=== PATIENT | male | born 1990 | race Caucasian/White ===

== ENCOUNTER 2020-02-15 04:50 | Emergency (ER) | payer OTHER, SELFPAY ==
[2020-02-15 05:12] VITALS: BP 119/74; PULSE 67; RESP 16; TEMP 36.9; O2SAT 97; BMI 33.9
--- NOTE | 2020-02-15 05:51 | ED_ITS ---
HPI - Back Pain/Injury General Chief Complaint: Back Pain/Injury Stated Complaint: BACK PAIN Time Seen by Provider: 02/15/20 05:51 Source: patient Mode of arrival: ambulatory Limitations: no limitations History of Present Illness HPI Narrative: This is a 30-year-old male who presents with acute on chronic lower back discomfort with some very mild radiation into the gluteal muscle without any associated urinary or fecal incontinence. This patient denies any fever, chills, nausea, vomiting, diarrhea, or urinary pain/ burning/ frequency. Related Data Previous Rx's Medication Instructions Recorded ketorolac 10 mg PO Q6H PRN 5 Days #20 tab 02/15/20 Allergies Allergy/AdvReac Type Severity Reaction Status Date / Time No Known Allergies Allergy Verified 02/15/20 05:17 Review of Systems Review of Systems: Pertinent positives and negatives as stated in HPI 10 point review of systems otherwise negative. PMFSH Past Medical History Source: nursing notes reviewed Medical History High cholesterol No known health problems Social History Social History Smoking Status: Never smoker Use of substances other than those prescribed or required for medical reasons: No Advance Directives: No Advance Directives Information Provided: No Physical Exam Vital Signs: Vital Signs: Last Vital Signs Temp 98.5 F 02/15/20 05:12 Pulse 67 02/15/20 05:12 Resp 16 02/15/20 05:12 BP 119/74 02/15/20 05:12 Pulse Ox 97 02/15/20 05:12 Body Mass Index 33.9 VITAL SIGNS: Reviewed. GENERAL: Well developed, well nourished, in no acute distress. HEAD: Normocephalic/atraumatic, EYES: PERRLA, EOMI intact without pain, no nystagmus/pallor/icterus noted EARS: Ext canals without abnormality, TMs non-bulging and non-erythematous NOSE: Nares patent bilateral OROPHARYNX: no oral lesions noted, posterior pharynx clear and non-erythematous without noted tonsillar enlargement/erythema/exudates NECK: Supple, no adenopathy LUNGS: Normal breath sounds. No adventitious sounds or accessory muscle use. SpO2<97> CARDIOVASCULAR: Regular rate and rhythm without noted murmurs, no JVD or lower extremity edema. ABDOMEN: Soft, non-tender, non-distended with bowel sounds. No rigidity. No guarding. No palpable masses or hernias noted MUSCULOSKELETAL: No tenderness, deformities, or effusions noted on gross inspection. EXTREMITIES: No cyanosis, clubbing or edema. SKIN: Inspection of the skin reveals no rashes, ulcerations, jaundice, pallor, or petechiae. NEUROLOGIC: Alert and oriented x 4. Strength and sensation to light touch were grossly intact x 4. Course Course Course Narrative: This is a 30-year-old male with history and clinical examin ation consistent with chronic back pain and will receive combination analgesics and discharged to home in stable condition. Discharge Plan Discharge Clinical Impression: Back pain with left-sided sciatica Patient Disposition: Home, Self-Care Instructions: Back Pain (ED), Lower Back Exercises (ED) Additional Instructions: 1. Tylenol 1000 mg, orally, every 6 hours as needed for pain control. Do not exceed 4000 mg within 24 hours. 2. Lidocaine patch, apply to area of maximal pain as directed on the outside packaging. These are available in every [facility]. The patient and/or family acknowledge understanding of results (as applicable), diagnosis, treatment plan, need for follow up, and symptoms that should prompt a return to the emergency room. Prescriptions: New ketorolac 10 mg tablet 10 mg PO Q6H PRN (Reason: pain) 5 Days Qty: 20 RF: 0 Referrals: Natalya Dodd MD [Primary Care Provider] - 2 days ( For further re- evaluation regarding back pain)
[2020-02-15] MEDS: Acetaminophen 325 MG TABLET 975 MG PO (06:04)
[2020-02-15] MEDS: Lidocaine 4 % Patch ADH..PATCH 1 PATCH TRANSDERMA (06:05)
[2020-02-15] MEDS: Ketorolac Tromethamine 15 MG/ML VIAL IM (06:07)
== END 2020-02-15 06:12 | disposition home or self-care (01) ==
PROVIDERS: Emergency Provider Student in an Organized Health Care Education/Training Program; PCP Internal Medicine
DX: M54.42 Lumbago with sciatica, left side (principal); Z79.899 Other long term (current) drug therapy
CPT/HCPCS: 96372; 99284; J1885

== ENCOUNTER 2020-02-24 12:47 | Outpatient (REF) | payer OTHER, SELFPAY ==
[2020-02-24 13:13] LABS: MANUAL DIFF FLAG NO
[2020-02-24 13:37] LABS: Basophils Absolute Auto 0.1 X10*3/uL (0.0-0.2); Basophils Percent Auto 0.5 % (0-2); Eosinophils Absolute Auto 0.1 X10*3/uL (0.0-0.4); Hematocrit 38.7 % (42-52); Hemoglobin 13.1 g/dl (14.0-18.0); Imm Gran Abs Auto 0.06 X10*3/uL (0.00-0.03); Imm Gran Pct Auto 0.6 % (0.0-0.4); Lymphocytes Absolute Auto 2.6 X10*3/uL (1.2-4.9); Lymphocytes Percent Auto 26.3 % (20-40); Mean Corpuscular HGB Conc 33.9 g/dl (31.0-36.0); Mean Corpuscular Hemoglobin 29.9 pg (27.0-33.0); Mean Corpuscular Volume 88.4 fL (80-98); Mean Platelet Volume 11.9 fL (9.4-12.4); Monocytes Absolute Auto 0.6 X10*3/uL (0.1-1.2); Monocytes Percent Auto 6.3 % (2-11); Neutrophils Absolute Auto 6.5 X10*3/uL (2.0-8.3); Neutrophils Percent Auto 65.3 % (45-73); Platelet Count 222 X10*3/uL (160-400); Red Blood Count 4.38 X10*6/uL (4.60-5.80); Red Cell Distribution Width 12.4 % (11.0-16.0)
[2020-02-24 13:55] LABS: Alanine Aminotransferase 37 U/L (0-40); Albumin Level 4.7 g/dL (3.5-5.0); Alkaline Phosphatase 100 U/L (39-117); Anion Gap 12 (12-20); Aspartate Amino Transferase 25 U/L (5-37); Bilirubin Total 0.4 mg/dL (0.0-1.0); Blood Urea Nitrogen 13 mg/dL (9-16); Calcium 9.4 mg/dL (8.4-10.2); Carbon Dioxide 30 mmol/L (22-29); Chloride 103 mmol/L (96-108); Cholesterol 225 mg/dL; Estimated Glomerular Filt Rate > 60; Glucose Fasting 82 mg/dL (60-99); HDL Cholesterol 61 mg/dL; LDL Cholesterol Calculated 153 mg/dl; Sodium 141 mmol/L (135-145); Total Protein 7.6 g/dL (6.5-8.0); Triglycerides 56 mg/dL
[2020-02-24 14:15] LABS: TSH reflex Free T4 2.22 mIU/mL (0.32-4.0)
[2020-02-28 13:37] LABS: Vitamin D 25-OH, D2 <4 ng/mL; Vitamin D 25-OH, D3 19 ng/mL; Vitamin D 25-OH, Total 19 ng/mL (30-100)
== END 2020-02-24 12:48 | disposition home or self-care (01) ==
LOC: HO.LAB 12:47
PROVIDERS: Visit Provider Internal Medicine
DX: E78.5 Hyperlipidemia, unspecified (principal); E11.9 Type 2 diabetes mellitus without complications; E03.9 Hypothyroidism, unspecified; R07.9 Chest pain, unspecified; E55.9 Vitamin D deficiency, unspecified
CPT/HCPCS: 36415; 80053; 80061; 82306; 84443; 85025

== ENCOUNTER 2020-03-04 10:54 | Emergency (ER) | payer OTHER, SELFPAY ==
[2020-03-04 11:26] VITALS: BP 143/80; PULSE 74; RESP 18; TEMP 36.7; O2SAT 100; BMI 74.7
--- NOTE | 2020-03-04 12:08 | ED_ITS ---
HPI - Back Pain/Injury General Chief Complaint: Back Pain/Injury Stated Complaint: back pain Time Seen by Provider: 03/04/20 12:07 Source: patient Mode of arrival: ambulatory Limitations: no limitations History of Present Illness HPI Narrative: Right lower back pain since Thursday. Patient tells me he was shoveling snow on and woke Thursday morning with pain. He has a past history of sciatica with her recent episode on02/14. Seen here 02 14 for sciatica. Sent home with p.o. Toradol. Patient does have the pain radiates down his right leg. There is no numbness or tingling. There is no saddle anesthesia. No bowel or bladder incontinence. The patient is ambulatory. No fevers or chills. He is taking Toradol at home with continued symptoms MD elicited complaint: back pain Pertinent past history: prior back pain Onset (ago): day(s) Timing: constant Severity: moderate Quality: aching and spasming Location: lumbar spine Radiation: none Exacerbating factors: none Relieving factors: none Associated symptoms: denies other symptoms Related Data Previous Rx's Medication Instructions Recorded ketorolac 10 mg PO Q6H PRN 5 Days #20 tab 02/15/20 cyclobenzaprine 10 mg PO TID PRN #10 tab 03/04/20 ibuprofen 800 mg PO Q6H PRN #20 tab 03/04/20 prednisone 40 mg PO DAILY #10 tab 03/04/20 Allergies Allergy/AdvReac Type Severity Reaction Status Date / Time No Known Allergies Allergy Verified 02/23/20 08:43 Review of Systems Review of Systems: Yes all other systems are reviewed and are negative Constitutional: Constitutional: Reports no additional constitutional complaints, Denies body ache(s), Denies chills, Denies fever(s), Denies headache(s) and Denies weakness Eyes: Eyes: Reports no additional eye complaints and Denies change in vision ENT: Reports system reviewed and no additional complaints, except as documented, Denies dizziness, Denies headache(s), Denies nasal congestion, Denies nasal discharge and Denies neck pain Cardiovascular: Cardiovascular: Reports no additional cardiovascular complaints, Denies chest pain, Denies leg edema and Denies dyspnea Respiratory: Respiratory: Reports no additional respiratory complaints, Denies cough and Denies dyspnea Gastrointestinal: Gastrointestinal: Reports no additional gastrointestinal complaints, Denies abdominal pain, Denies diarrhea, Denies nausea and Denies vomiting Genitourinary: Genitourinary: Denies urinary incontinence Musculoskeletal: Musculoskeletal: Reports no additional musculoskeletal complaints, Reports back pain, Denies arthralgias, Denies joint swelling, Denies neck pain, Denies numbness and Denies tingling Integumentary/Breasts: Skin/Breast: Reports system reviewed and no additional complaints, except as docu and Denies rash Neurologic: Reports system reviewed and no additional complaints, except as documented, Denies Abnormal speech present, Denies dizziness, Denies headache(s), Denies numbness, Denies tingling and Denies weakness PMFSH Past Medical History Attestation statement: The following information was validated with the patient. Source: old records reviewed and nursing notes reviewed Medical History Abdominal pain Chest pain Dyslipidemia Hypovitaminosis D Left sided sciatica No known health problems Surgical History History of hand surgery Family History Family History Father No problems noted. Maternal Uncle Throat cancer Mother Diabetes Hypertension Maternal Grandfather Diabetes Paternal Grandfather No problems noted. Social History Social History Alcohol intake: current Alcohol intake frequency: a few times a month Smoking Status: Never smoker Advance Directives: No Advance Directives Information Provided: Yes Physical Exam Vital Signs: Vital Signs: Last Vital Signs Temp 98.0 F 03/04/20 11:26 Pulse 74 03/04/20 11:26 Resp 18 03/04/20 11:26 BP 143/80 H 03/04/20 11:26 Pulse Ox 100 03/04/20 11:26 Body Mass Index 74.7 Const: General: cooperative, healthy appearing, comfortable and no acute distress Orientation/consciousness: patient oriented x3 Limitations: no limitations HENMT: Head: Yes normal to inspection Ears: hearing grossly normal bilaterally General nose exam: Normal external nose present Face and sinus: Yes normal facial exam Mouth: Normal oral and palatal mucosa present Throat: Yes posterior oropharynx normal Eyes: General: appearance normal, both eyes and all related structures Pupils: Equal, round and reactive pupils present Neck: Neck: Yes normal visual inspection Chest: Chest palpation & inspection: normal inspection of the chest Resp: Effort & Inspection: normal respiratory effort Auscultation: clear to auscultation bilaterally Cardio: Rate: regular rate Rhythm: regular rhythm Peripheral pulses: Peripheral pulses 2+ throughout GI: Inspection: Yes normal to inspection Palpation (GI): Soft to palpation and nontender Auscultation: normal bowel sounds Back/Spine/Pelvis: Other: Right lumbar soft tissue tenderness lower into the right buttocks. There is no midline tenderness, step-offs or deformities. Pain is worsened with straight leg raise on the right side. Thoracic/Lumbar Spine: thoracic and lumbar spine normal to inspection Skin: General skin exam: no rashes or lesions noted Neuro: General: patient oriented x3, no focal motor deficits and normal sensation to monofilament Cranial nerves: Yes Equal, round and reactive pupils present Cognition (Neuro): normal cognition Speech: No Abnormal speech present Gait exam (Neuro): Normal gait present Motor exam (neuro): 5/5 motor strength present throughout Sensory Exam: Normal double simultaneous stimulation for sensation Deep tendon reflexes (DTR's): Right patellar reflex intensity grade: 2+, Left patellar reflex intensity grade: 2+, Right ankle reflex intensity grade: 2+ and Left ankle reflex intensity grade: 2+ Coordination: tandem gait normal Extrem: General: Yes normal to inspection Course Course Course Narrative: Exam consistent with sciatica. No red flag symptoms or neur ological deficits. Discussed with patient supportive care at home. Reviewed worrisome signs and symptoms of when to return to the emergency department. Comfortable discharge home. MDM - Back Pain/Injury Medical Records Attestation: I reviewed the patient's medical records. Lab Data Attestation: I reviewed the patient's lab results. Discharge Plan Discharge Clinical Impression: Sciatica Qualifiers: Laterality: right Qualified Code(s): M54.31 - Sciatica, right side Patient Disposition: Home, Self-Care Instructions: Sciatica (ED) Additional Instructions: NO heavy lifting or bending Heat or ice to the area Prescriptions: New ibuprofen 800 mg tablet 800 mg PO Q6H PRN (Reason: pain) Qty: 20 RF: 0 cyclobenzaprine 10 mg tablet 10 mg PO TID PRN (Reason: muscle spasm) Qty: 10 RF: 0 prednisone 20 mg tablet 40 mg PO DAILY Qty: 10 RF: 0 No Action ketorolac 10 mg tablet 10 mg PO Q6H PRN (Reason: pain) 5 Days Qty: 20 RF: 0 Referrals: Natalya Dodd MD [Primary Care Provider] - 2 days Stand Alone Forms: Work/School Release Interventions: ED Discharge Assessment Last Done: 03/04/20 12:32 Discharge Date/Time: 03/04/20 12:33
== END 2020-03-04 12:33 | disposition home or self-care (01) ==
PROVIDERS: Emergency Provider Emergency Medicine; PCP Internal Medicine
DX: M54.41 Lumbago with sciatica, right side (principal)
CPT/HCPCS: 99283

== ENCOUNTER 2020-03-20 07:53 | Outpatient (REF) | payer OTHER, SELFPAY ==
--- NOTE | 2020-03-20 08:00 | US_ITS ---
EXAMINATION: US ABDOMEN LIMITED CLINICAL INFORMATION: Periumbilical pain. COMPARISON: KUB dated 08/24/2019. TECHNIQUE: Real-time imaging of the umbilical area. FINDINGS: No hernia is seen. No mass or fluid collection is seen. US/US abdomen limited IMPRESSION: No hernia seen by ultrasound.
== END 2020-03-20 07:54 | disposition home or self-care (01) ==
LOC: HO.US 07:53
PROVIDERS: PCP Internal Medicine; Visit Provider Internal Medicine
DX: R10.33 Periumbilical pain (principal)
CPT/HCPCS: 76705

== ENCOUNTER 2020-04-04 13:00 | Outpatient (RCR) | payer OTHER, SELFPAY ==
--- NOTE | 2020-03-22 14:21 | MHC.PT.EP ---
[facility] [place] Office [place] Office [place] Office [address] [phone] F: [phone] F: [phone] F: [phone] F: [phone] Physical Therapy Plan of Care Date of Evaluation: 03/22/20 Date of Surgery: Diagnosis: low back pain Assessment: The patient exhibited painful lumbar mobility in all directions most notable with bending. He lacks awareness of neutral spine exhibiting increased lumbar lordosis. He was able to find neutral spine with significant tactile cues.He has significant core weakness noted. His job requires repetitive lifting in multiple directions. He will benefit from extensive body mechanics training to help prevent future occurrence. He will also need core stabilization activities to help prevent strain to his lumbar spine. Frequency and Duration: The patient will be seen 2x/week x 4 weeks Short Term Goals: 1. Pt to be able to find neutral spine independently Mcfp Goals: 1. Pt to be able to resume normal daily activities without pain. 2. Pt to be able to do all functional lifting such as squatting, and bending without pain 3. Pt to resume normal sleeping postures without pain Treatment Plan: Modalities to reduce pain, spasms and effusion. Manual therapy to restore motion and function. Therapeutic exercise to improve strength and flexibility. Neuromuscular re-education for posture and balance. Therapeutic activities to return to functional activities of daily living. Electronically signed by: Eli Macdonald PT DPT Please sign and return to therapist. Thank you for your referral.
== END 2020-04-15 08:00 | disposition home or self-care (01) ==
LOC: HO.PT 13:00
PROVIDERS: PCP Internal Medicine; Visit Provider Internal Medicine
DX: M54.31 Sciatica, right side (principal)
CPT/HCPCS: 97110; 97112; 97162

== ENCOUNTER 2020-08-08 09:36 | Outpatient (REF) | payer OTHER, SELFPAY ==
--- NOTE | 2020-08-08 09:30 | EMG_ITS ---
This is a 30-year-old man, who had an injury with a box on his left hand about 4 months ago. Complains of pain and numbness in the left upper extremity. His neurological examination is normal. IMPRESSION: Rule out nerve entrapment, rule out carpal tunnel syndrome. EMG nerve conduction study: Normal electrodiagnostic study of the left upper extremity with no evidence of carpal tunnel syndrome or nerve entrapment. Normal EMG of the left C7-T1 innervated muscles. MD JESUS Fernandez/RIRI / [id number]
== END 2020-08-08 09:37 | disposition home or self-care (01) ==
LOC: HO.NEURO 09:36
PROVIDERS: Visit Provider Internal Medicine
DX: R20.0 Anesthesia of skin (principal)
CPT/HCPCS: 95885; 95910

== ENCOUNTER 2020-12-24 10:34 | Outpatient (REF) | payer OTHER, SELFPAY ==
[2020-12-24 10:50] LABS: MANUAL DIFF FLAG NO
[2020-12-24 11:07] LABS: Basophils Percent Auto 0.5 % (0-2); Eosinophils Absolute Auto 0.1 X10*3/uL (0.0-0.4); Eosinophils Percent Auto 1.5 % (0-4); Hematocrit 41.1 % (42-52); Hemoglobin 13.7 g/dl (14.0-18.0); Imm Gran Abs Auto 0.02 X10*3/uL (0.00-0.03); Imm Gran Pct Auto 0.3 % (0.0-0.4); Lymphocytes Percent Auto 30.2 % (20-40); Mean Corpuscular HGB Conc 33.3 g/dl (31.0-36.0); Mean Corpuscular Hemoglobin 29.4 pg (27.0-33.0); Mean Corpuscular Volume 88.2 fL (80-98); Mean Platelet Volume 11.4 fL (9.4-12.4); Monocytes Absolute Auto 0.4 X10*3/uL (0.1-1.2); Monocytes Percent Auto 6.4 % (2-11); Neutrophils Percent Auto 61.1 % (45-73); Platelet Count 219 X10*3/uL (160-400); Red Blood Count 4.66 X10*6/uL (4.60-5.80); Red Cell Distribution Width 12.5 % (11.0-16.0); White Blood Count 6.6 X10*3/uL (4.8-10.8)
[2020-12-24 11:36] LABS: Alanine Aminotransferase 59 U/L (0-40); Albumin Level 4.5 g/dL (3.5-5.0); Alkaline Phosphatase 94 U/L (39-117); Anion Gap 10 (12-20); Aspartate Amino Transferase 23 U/L (5-37); Bilirubin Total 0.6 mg/dL (0.0-1.0); Blood Urea Nitrogen 10 mg/dL (9-16); Calcium 9.8 mg/dL (8.4-10.2); Carbon Dioxide 30 mmol/L (22-29); Chloride 105 mmol/L (96-108); Cholesterol 217 mg/dL; Estimated Glomerular Filt Rate > 60; Glucose Fasting 97 mg/dL (60-99); HDL Cholesterol 47 mg/dL; LDL Cholesterol Calculated 155 mg/dl; Potassium 4.6 mmol/L (3.3-5.1); Sodium 140 mmol/L (135-145); Total Protein 7.5 g/dL (6.5-8.0); Triglycerides 78 mg/dL
[2020-12-24 12:02] LABS: Thyroid Stimulating Hormone 1.35 uIU/mL (0.32-4.0)
[2020-12-28 14:11] LABS: Vitamin D 25-OH, D2 <4 ng/mL; Vitamin D 25-OH, D3 23 ng/mL; Vitamin D 25-OH, Total 23 ng/mL (30-100)
== END 2020-12-24 10:35 | disposition home or self-care (01) ==
LOC: HO.LAB 10:34
PROVIDERS: PCP Internal Medicine; Visit Provider Internal Medicine
DX: E66.9 Obesity, unspecified (principal); E78.5 Hyperlipidemia, unspecified; D64.9 Anemia, unspecified; E55.9 Vitamin D deficiency, unspecified
CPT/HCPCS: 36415; 80053; 80061; 82306; 84443; 85025

== ENCOUNTER 2021-06-27 12:07 | Outpatient (REF) | payer OTHER, SELFPAY ==
[2021-06-27 14:17] LABS: Amylase 44 U/L (28-100); Lipase 26 U/L (8-78)
== END 2021-06-27 12:08 | disposition home or self-care (01) ==
LOC: HO.WFDLDS 12:07
PROVIDERS: Visit Provider Hospitalist
DX: R10.11 Right upper quadrant pain (principal); K81.0 Acute cholecystitis
CPT/HCPCS: 36415; 82150; 83690

== ENCOUNTER 2021-07-01 20:55 | Emergency (ER) | payer OTHER, SELFPAY ==
--- NOTE | ~2021-07-01 | US_ITS ---
EXAMINATION: US ABDOMEN LIMITED CLINICAL INFORMATION: Right upper quadrant pain radiating to the back. COMPARISON: None TECHNIQUE: Real-time imaging of the right upper quadrant abdominal viscera. FINDINGS: PANCREAS: The pancreatic head and body are unremarkable. The tail is obscured by gas. LIVER: The liver is normal in size. The liver contour is normal. There is diffuse increased liver parenchymal echogenicity, consistent with hepatic steatosis. Focal fatty sparing along the gallbladder fossa. No focal hepatic lesion. There is no intrahepatic biliary duct dilatation seen. GALLBLADDER: Normal. The gallbladder is physiologically distended without evidence of stones, sludge, polyps, wall thickening or pericholecystic fluid. COMMON BILE DUCT: Normal in caliber measuring 0.2 cm in diameter. RIGHT KIDNEY: Normal. No hydronephrosis. No renal calculi or focal parenchymal lesions. The kidney measures 11.9 cm in maximum dimension. FREE FLUID: None. US/US abdomen limited IMPRESSION: Hepatic steatosis. Otherwise unremarkable abdominal ultrasound.
[2021-07-01 22:01] VITALS: BP 108/58; PULSE 70; RESP 14; TEMP 36.6; O2SAT 99; BMI 34.4
[2021-07-01 22:40] LABS: MANUAL DIFF FLAG NO
[2021-07-01 22:41] LABS: Basophils Percent Auto 0.5 % (0-2); Eosinophils Absolute Auto 0.1 X10*3/uL (0.0-0.4); Eosinophils Percent Auto 1.7 % (0-4); Hemoglobin 13.6 g/dl (14.0-18.0); Imm Gran Abs Auto 0.01 X10*3/uL (0.00-0.03); Imm Gran Pct Auto 0.1 % (0.0-0.4); Lymphocytes Absolute Auto 2.6 X10*3/uL (1.2-4.9); Lymphocytes Percent Auto 30.2 % (20-40); Mean Corpuscular Hemoglobin 29.3 pg (27.0-33.0); Mean Corpuscular Volume 86.2 fL (80.0-98.0); Mean Platelet Volume 11.1 fL (9.4-12.4); Monocytes Absolute Auto 0.6 X10*3/uL (0.1-1.2); Monocytes Percent Auto 6.9 % (2-11); Neutrophils Absolute Auto 5.1 x10*3/uL (2.0-8.3); Neutrophils Percent Auto 60.6 % (45-73); Platelet Count 235 X10*3/uL (160-400); Red Blood Count 4.64 X10*6/uL (4.60-5.80); Red Cell Distribution Width 12.2 % (11.0-16.0); White Blood Count 8.4 X10*3/uL (4.8-10.8)
[2021-07-01 22:57] LABS: Alanine Aminotransferase 36 U/L (0-40); Albumin Level 4.4 g/dL (3.5-5.0); Alkaline Phosphatase 87 U/L (39-117); Anion Gap 13 (12-20); Aspartate Amino Transferase 25 U/L (5-37); Bilirubin Total 0.5 mg/dL (0.0-1.0); Blood Urea Nitrogen 12 mg/dL (9-16); Calcium 9.7 mg/dL (8.4-10.2); Carbon Dioxide 25 mmol/L (22-29); Chloride 103 mmol/L (96-108); Creatinine Clr Calc Pharmacy 122.9; Estimated Glomerular Filt Rate > 60; Glucose Random 92 mg/dL (60-115); Lipase 38 U/L (8-78); Potassium 4.2 mmol/L (3.3-5.1); Sodium 137 mmol/L (135-145); Total Protein 7.4 g/dL (6.5-8.0)
[2021-07-01 23:03] LABS: Appearance Urine CLEAR; Color Urine STRAW; Glucose Urine UA NEG (NEG); Leukocyte Esterase Urine NEG (NEG); Nitrite Urine NEG (NEG); Specific Gravity - Urine <= 1.005 (1.005-1.025); Urine Blood NEG (NEG); Urine Ketones 5 MG/DL (NEG); Urine Protein NEG (NEG-TRACE)
--- NOTE | 2021-07-02 00:16 | ED.ABDPAIN ---
HPI - Abdominal Pain General Chief Complaint: Abdominal Pain Stated Complaint: R side abd/rib pain Time Seen by Provider: 07/01/21 22:10 Source: patient Mode of arrival: ambulatory History of Present Illness HPI narrative: 31-year-old male with presentation for 8 days of right upper quadrant discomfort that is sharp/crampy in nature and at times radiates into his back with associated nausea but he otherwise denies any vomiting, fevers, chills, new cough, traumatic injury. In addition, patient denies any dysuria. Related Data Previous Rx's Medication Instructions Recorded acetaminophen 500 mg tablet 1,000 mg PO Q6H PRN 30 Days #180 06/26/21 tab atorvastatin 10 mg tablet 10 mg PO BEDTIME 90 Days #90 tab 06/26/21 cholecalciferol (vitamin D3) 25 25 mcg PO DAILY 90 Days #90 cap 06/26/21 mcg (1,000 unit) capsule Allergies Allergy/AdvReac Type Severity Reaction Status Date / Time No Known Allergies Allergy Verified 06/27/21 11:41 Review of Systems Review of Systems Pertinent positives and negatives as stated in HPI 10 point review of systems is otherwise negative. [facility] Past Medical History Source: nursing notes reviewed Medical History Abdominal pain Chest pain Dyslipidemia Hand numbness Hypovitaminosis D Left sided sciatica Left wrist pain No known health problems Normocytic anemia Obese Surgical History History of hand surgery Family History Family History Father Hypertension Maternal Uncle Throat cancer Mother Diabetes Hypertension Maternal Grandfather Diabetes Paternal Grandfather No problems noted. Social History Social History Housing: Apartment Alcohol intake: current Alcohol intake frequency: a few times a month Alcohol type: wine and hard liquor Patient Tobacco Use Status: Never used Tobacco e-Cigarette/Vaping Use: Never Used Second Hand Smoke Exposure: No Advance Directives: No service: No Current occupational status: employed Current occupational exposures/hazards: No Cognitive needs: No Hearing needs: No Vision needs: No Physical Exam ED Vital Signs: Vital Signs - 24 hr 07/01/21 22:01 07/02/21 01:33 Temperature 97.9 F 98.1 F Pulse Rate 70 62 Respiratory Rate 14 16 Blood Pressure 108/58 L 113/65 Pulse Oximetry 99 98 BMI result Body Mass Index 34.4 VITAL SIGNS: Reviewed. GENERAL: Well developed, well nourished, in no acute distress. HEAD: Normocephalic/atraumatic EYES: PERRLA, EOMI EARS: Ext canals without abnormality OROPHARYNX: no oral lesions noted, posterior pharynx clear LUNGS: Normal breath sounds. No adventitious sounds or accessory muscle use. SpO2<99> CARDIOVASCULAR: Regular rate and rhythm without noted murmurs ABDOMEN: Soft, right upper quadrant discomfort without rebound,non-distended with bowel sounds, no CVA tenderness MUSCULOSKELETAL: No tenderness, deformities, or effusions noted on gross inspection. EXTREMITIES: No cyanosis, clubbing or edema. SKIN: Inspection of the skin reveals no rashes NEUROLOGIC: Alert and oriented x 4. Strength and sensation to light touch were grossly intact x 4. Course Course Course Narrative: 31-year-old male with history and clinical presentation most suggestive cholecystitis, no evidence to suggest pancreatitis, renal colic, pneumonia. Possibility of musculoskeletal as well. Review of all investigations negative for acute findings other than hepatic steatosis. Patient was informed of all results and recommended to take [id number] analgesics and follow-up with his primary care provider. MDM - Abdominal Pain Lab Data Result diagrams: 07/01/21 22:31 07/01/21 22:31 Labs: Lab Results 07/01/21 07/01/21 07/01/21 Range/Units 22:31 22:31 22:31 WBC 8.4 (4.8-10.8) X10*3/uL RBC 4.64 (4.60-5.80) X10*6/uL Hgb 13.6 L (14.0-18.0) g/dl Hct 40.0 L (42.0-52.0) % MCV 86.2 (80.0-98.0) fL MCH 29.3 (27.0-33.0) pg MCHC 34.0 (31.0-36.0) g/dl RDW 12.2 (11.0-16.0) % Plt Count 235 (160-400) X10*3/uL MPV 11.1 (9.4-12.4) fL Immature Gran % (Auto) 0.1 (0.0-0.4) % Neut % (Auto) 60.6 (45-73) % Lymph % (Auto) 30.2 (20-40) % Glasscock % (Auto) 6.9 (2-11) % Eos % (Auto) 1.7 (0-4) % Baso % (Auto) 0.5 (0-2) % Lymph # (Auto) 2.6 (1.2-4.9) X10*3/uL Glasscock # (Auto) 0.6 (0.1-1.2) X10*3/uL Eos # (Auto) 0.1 (0.0-0.4) X10*3/uL Baso # (Auto) 0.0 (0.0-0.2) X10*3/uL Abs Immat Gran (auto) 0.01 (0.00-0.03) X10*3/uL Absolute Neuts (auto) 5.1 (2.0-8.3) x10*3/uL Absolute Nucleated RBC 0.000 (0.0-0.012) X10*3/uL Nucleated RBC % (auto) 0.0 (0.0-0.2) /100WBC Sodium 137 (135-145) mmol/L Potassium 4.2 (3.3-5.1) mmol/L Chloride 103 (96-108) mmol/L Carbon Dioxide 25 (22-29) mmol/L Anion Gap 13 (12-20) BUN 12 (9-16) mg/dL Creatinine 0.98 (0.5-1.4) mg/dL Estim Creat Clear Calc 122.9 Estimated GFR > 60 Random Glucose 92 (60-115) mg/dL Calcium 9.7 (8.4-10.2) mg/dL Total Bilirubin 0.5 (0.0-1.0) mg/dL AST 25 (5-37) U/L ALT 36 (0-40) U/L Alkaline Phosphatase 87 (39-117) U/L Total Protein 7.4 (6.5-8.0) g/dL Albumin 4.4 (3.5-5.0) g/dL Lipase 38 (8-78) U/L Urine Color Urine Appearance Urine pH (5.0-8.0) Ur Specific Martin (1.005-1.025) Urine Protein (NEG-TRACE) MG/DL Urine Glucose (UA) (NEG) MG/DL Urine Ketones (NEG) MG/DL Urine Blood (NEG) Urine Nitrite (NEG) Ur Leukocyte Esterase (NEG) 07/01/21 Range/Units 22:52 WBC (4.8-10.8) X10*3/uL RBC (4.60-5.80) X10*6/uL Hgb (14.0-18.0) g/dl Hct (42.0-52.0) % MCV (80.0-98.0) fL MCH (27.0-33.0) pg MCHC (31.0-36.0) g/dl RDW (11.0-16.0) % Plt Count (160-400) X10*3/uL MPV (9.4-12.4) fL Immature Gran % (Auto) (0.0-0.4) % Neut % (Auto) (45-73) % Lymph % (Auto) (20-40) % Glasscock % (Auto) (2-11) % Eos % (Auto) (0-4) % Baso % (Auto) (0-2) % Lymph # (Auto) (1.2-4.9) X10*3/uL Glasscock # (Auto) (0.1-1.2) X10*3/uL Eos # (Auto) (0.0-0.4) X10*3/uL Baso # (Auto) (0.0-0.2) X10*3/uL Abs Immat Gran (auto) (0.00-0.03) X10*3/uL Absolute Neuts (auto) (2.0-8.3) x10*3/uL Absolute Nucleated RBC (0.0-0.012) X10*3/uL Nucleated RBC % (auto) (0.0-0.2) /100WBC Sodium (135-145) mmol/L Potassium (3.3-5.1) mmol/L Chloride (96-108) mmol/L Carbon Dioxide (22-29) mmol/L Anion Gap (12-20) BUN (9-16) mg/dL Creatinine (0.5-1.4) mg/dL Estim Creat Clear Calc Estimated GFR Random Glucose (60-115) mg/dL Calcium (8.4-10.2) mg/dL Total Bilirubin (0.0-1.0) mg/dL AST (5-37) U/L ALT (0-40) U/L Alkaline Phosphatase (39-117) U/L Total Protein (6.5-8.0) g/dL Albumin (3.5-5.0) g/dL Lipase (8-78) U/L Urine Color STRAW Urine Appearance CLEAR Urine pH 6.0 (5.0-8.0) Ur Specific Martin <= 1.005 (1.005-1.025) Urine Protein NEG (NEG-TRACE) MG/DL Urine Glucose (UA) NEG (NEG) MG/DL Urine Ketones 5 (NEG) MG/DL Urine Blood NEG (NEG) Urine Nitrite NEG (NEG) Ur Leukocyte Esterase NEG (NEG) Discharge Plan Discharge Clinical Impression: Abdominal pain, Hepatic steatosis Patient Disposition: Home, Self-Care Instructions: Abdominal Pain (ED), Musculoskeletal Pain (ED) Additional Instructions: 1. Recommend [id number] Tylenol/ibuprofen as needed for pain control. 2. Recommend heating pad for additional symptom relief. 3. Follow-up with your primary care provider for further outpatient management. Return to the ER for worsening symptoms. Prescriptions: No Action acetaminophen 500 mg tablet 1,000 mg PO Q6H PRN (Reason: fever or pain) 30 Days Qty: 180 0RF atorvastatin 10 mg tablet 10 mg PO BEDTIME 90 Days Qty: 90 3RF cholecalciferol (vitamin D3) 25 mcg (1,000 unit) capsule 25 mcg PO DAILY 90 Days Qty: 90 3RF Referrals: Natalya Dodd MD [Primary Care Provider] -
[2021-07-02 01:33] VITALS: BP 113/65; PULSE 62; RESP 16; TEMP 36.7; O2SAT 98
--- NOTE | 2021-07-02 02:10 | PC.NURSE ---
Pt ambulating to U/S.
== END 2021-07-02 03:17 | disposition home or self-care (01) ==
PROVIDERS: Internal Medicine; Emergency Provider Student in an Organized Health Care Education/Training Program; PCP Internal Medicine
DX: K76.0 Fatty (change of) liver, not elsewhere classified (principal); R10.11 Right upper quadrant pain; Z79.899 Other long term (current) drug therapy
CPT/HCPCS: 36415; 76705; 80053; 81003; 83690; 85025; 99283; 99284

== ENCOUNTER 2021-08-13 11:17 | Outpatient (REF) | payer OTHER, SELFPAY ==
[2021-08-13 11:29] LABS: MANUAL DIFF FLAG NO
[2021-08-13 11:53] LABS: Basophils Percent Auto 0.7 % (0-2); Eosinophils Absolute Auto 0.1 X10*3/uL (0.0-0.4); Eosinophils Percent Auto 1.2 % (0-4); Hematocrit 41.5 % (42.0-52.0); Hemoglobin 13.9 g/dl (14.0-18.0); Imm Gran Abs Auto 0.01 X10*3/uL (0.00-0.03); Imm Gran Pct Auto 0.2 % (0.0-0.4); Lymphocytes Percent Auto 34.9 % (20-40); Mean Corpuscular HGB Conc 33.5 g/dl (31.0-36.0); Mean Corpuscular Hemoglobin 29.4 pg (27.0-33.0); Mean Corpuscular Volume 87.7 fL (80.0-98.0); Mean Platelet Volume 11.1 fL (9.4-12.4); Monocytes Absolute Auto 0.4 X10*3/uL (0.1-1.2); Monocytes Percent Auto 6.6 % (2-11); Neutrophils Absolute Auto 3.2 x10*3/uL (2.0-8.3); Neutrophils Percent Auto 56.4 % (45-73); Platelet Count 206 X10*3/uL (160-400); Red Blood Count 4.73 X10*6/uL (4.60-5.80); Red Cell Distribution Width 12.7 % (11.0-16.0); White Blood Count 5.6 X10*3/uL (4.8-10.8)
[2021-08-13 12:25] LABS: Alanine Aminotransferase 26 U/L (0-40); Albumin Level 4.4 g/dL (3.5-5.0); Alkaline Phosphatase 87 U/L (39-117); Anion Gap 12 (12-20); Aspartate Amino Transferase 17 U/L (5-37); Bilirubin Total 0.6 mg/dL (0.0-1.0); Blood Urea Nitrogen 11 mg/dL (9-16); Carbon Dioxide 27 mmol/L (22-29); Chloride 106 mmol/L (96-108); Cholesterol 168 mg/dL; Estimated Glomerular Filt Rate > 60; Glucose Fasting 95 mg/dL (60-99); HDL Cholesterol 49 mg/dL; Iron 84 mcg/dL (45-160); LDL Cholesterol Calculated 109 mg/dl; Percent Iron Saturation 26 % (15-50); Potassium 4.3 mmol/L (3.3-5.1); Sodium 141 mmol/L (135-145); Total Iron Binding Capacity 320 mcg/dL (228-428); Total Protein 7.3 g/dL (6.5-8.0); Triglycerides 54 mg/dL; Unsaturated Iron Binding 236 ug/dL
[2021-08-13 12:34] LABS: Vitamin D 25-OH Total 28.1 ng/mL (>30)
== END 2021-08-13 11:18 | disposition home or self-care (01) ==
LOC: HO.LAB 11:17
PROVIDERS: PCP Internal Medicine; Visit Provider Internal Medicine
DX: E55.9 Vitamin D deficiency, unspecified (principal); E78.5 Hyperlipidemia, unspecified; D64.9 Anemia, unspecified
CPT/HCPCS: 36415; 80053; 80061; 82306; 83540; 85025

== ENCOUNTER 2021-10-29 12:45 | Outpatient (REF) | payer OTHER, SELFPAY ==
--- NOTE | ~2021-10-29 | XR_ITS ---
EXAMINATION: XR FOOT, RIGHT CLINICAL INFORMATION: Foot pain COMPARISON: 08/24/2019 TECHNIQUE: AP, lateral, and oblique views of the right foot. FINDINGS: Oblique nondisplaced fracture through the proximal phalanx of the first toe noted. The IP joint is preserved and the MTP joint. No other fractures are seen. XR/XR foot RT 2V IMPRESSION: Fracture, proximal phalanx first toe as described.
== END 2021-10-29 12:46 | disposition home or self-care (01) ==
LOC: HO.XRAY 12:45
PROVIDERS: PCP Internal Medicine; Visit Provider Nurse Practitioner Family
DX: S99.921A Unspecified injury of right foot, initial encounter (principal)
CPT/HCPCS: 73620

== ENCOUNTER → 2021-11-07 14:25 | Outpatient (BNVA) | payer OTHER, SELFPAY | PROVIDERS: PCP Internal Medicine; Visit Provider Physician Assistant | DX: M25.561 Pain in right knee (principal); M79.651 Pain in right thigh; R10.33 Periumbilical pain; S92.404A Nondisplaced unspecified fracture of right great toe, initial encounter for closed fracture; W17.89XA Other fall from one level to another, initial encounter; Y93.39 Activity, other involving climbing, rappelling and jumping off; Y92.89 Other specified places as the place of occurrence of the external cause; Y99.8 Other external cause status | CPT/HCPCS: 99202 ==

== ENCOUNTER 2021-11-28 | Outpatient (REF) | payer OTHER, SELFPAY ==
--- NOTE | ~2021-11-28 | XR_ITS ---
EXAMINATION: XR FOOT, RIGHT CLINICAL INFORMATION: Right foot pain. COMPARISON: Right foot radiographs dated 10/29/2021. TECHNIQUE: AP, lateral, and oblique views of the right foot. FINDINGS: Redemonstration of a 1st proximal phalangeal fracture in similar anatomic alignment with minimal new bone/callus formation. No new fracture or dislocation. No joint space narrowing or marginal osteophytes. No osseous erosion. XR/XR foot RT min 3V IMPRESSION: 1st proximal phalangeal fracture in similar anatomic alignment with minimal new bone/callus formation.
== END 2021-11-28 00:01 | disposition home or self-care (01) ==
LOC: HO.HOSX
PROVIDERS: Visit Provider Physician Assistant
DX: S92.404A Nondisplaced unspecified fracture of right great toe, initial encounter for closed fracture (principal)
CPT/HCPCS: 73630; 99212

== ENCOUNTER 2022-12-12 11:35 | Outpatient (AMB) | payer OTHER, SELFPAY ==
--- NOTE | 2022-12-12 11:36 | MHC.PC.OV ---
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 Patient of , presents today for same-day visit for leg pain. Patient reports has been having ongoing mid lower back pain primarily right-sided that is radiating down his right leg. Patient reports it is a pressure-like pain feeling. Denies any right leg numbness or tingling and weakness. Patient denies any bowel or bladder incontinence or saddle parathesia. Of note patient has a history of left-sided sciatica for which she replies that it does tend to move from side to side. Patient reports doing [id number] Tylenol with minimal relief of pain. 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 [facility] Medical History (Reviewed 11/28/21 @ 13:53 by Veena Pinon [facility]) Abdominal pain Chest pain Dyslipidemia Hand numbness Hypovitaminosis D Left sided sciatica Left wrist pain No known health problems Normocytic anemia Obese Surgical History History of hand surgery Family History Father Hypertension Maternal Uncle Throat cancer Mother Diabetes Hypertension Rheumatoid arthritis Maternal Grandfather Diabetes Paternal Grandfather No problems noted. Social History Housing: Apartment Alcohol intake: current Alcohol intake frequency: a few times a month Alcohol type: wine and hard liquor Patient Tobacco Use Status: Former Tobacco user Tobacco use type: Cigarette e-Cigarette/Vaping Use: Never Used Second Hand Smoke Exposure: No service: No Current occupational status: employed Current occupation: hotel maintenance, rt hand Current occupational exposures/hazards: No Cognitive needs: No Hearing needs: No Vision needs: No Questionnaire PHQ-9 Over the last 2 weeks, how often have you been bothered by any of the following problems? 1. Little interest or pleasure in doing things: not at all 2. Feeling down, depressed, or hopeless: not at all 3. Trouble falling or staying asleep, or sleeping too much: not at all 4. Feeling tired or having little energy: not at all 5. Poor appetite or overeating: not at all 6. Feeling bad about yourself - or that you are a failure or have let yourself or your family down: not at all 7. Trouble concentrating on things, such as reading the newspaper or watching television: not at all 8. Moving or speaking so slowly that other people could have noticed. Or the opposite - being so fidgety or restless that you have been moving around a lot more than usual: not at all 9. Thoughts that you would be better off or of hurting yourself in some way: not at all Total score: 0 Depression Screening Interpretation: Negative Source: Developed by Drs. Oscar Krishnan, Melany Canchola, Howard Elizalde and colleagues, with an educational aj from [employer]. Thrive Questionnaire Date Thrive assessed: 12/12/22 I am a: Patient What is your living situation today?: I have a steady place to live Within the past 12 months, did the food you bought not last and you didn't have the money to get more?: Never true Within the past 12 months, did you worry whether your food would run out before you got money to buy more?: Never true Do you have trouble paying for medicines?: No Do you have trouble getting transportation to medical appointments?: No Do you have trouble paying your heating and electricity bill?: No Do you have trouble taking care of your child, family member or friend?: No Do you have trouble with day-to-day activities such as bathing, preparing meals, shopping, managing finances, etc.?: No Are you currently unemployed and looking for a job?: No Are you interested in more education?: No Currently or been in a relationship where the following occur: no concerns reported AUDIT C Alcohol Use Questionnaire (AUDIT-C) 1. How often do you have a drink containing alcohol?: Monthly or less 2. How many drinks containing alcohol do you have on a typical day when you are drinking?: 1 or 2 Total Score: 1 SHAKILA-7 AMB Questionnaire SHAKILA-7 Date SHAKILA - 7 assessed: 12/12/22 Feeling nervous, anxious, or on edge: 0 = Not at all Not being able to stop or control worryin = Not at all Worrying too much about different things: 0 = Not at all Trouble relaxin = Not at all Being so restless that it is hard to sit still: 0 = Not at all Becoming easily annoyed or irritable: 0 = Not at all Feeling afraid as if something awful might happen: 0 = Not at all Total SHAKILA-7 score (0-4 normal; 5-9 mild; 10-14 moderate; 15-21 severe): 0 Source: Developed by Drs. Oscar Krishnan, Melany Canchola, Howard Elizalde and colleagues, with an educational aj from [employer]. Review of Systems Const Reports no additional complaints Card Denies chest pain, Denies rapid heart rate and Denies dyspnea Resp Denies cough and Denies dyspnea Reports no additional complaints Musc Reports back pain and Reports radiating pain into limb (right leg ) Physical exam (Primary Care) Vital Signs: Last Vital Signs Pulse 78 12/12/22 11:38 BP 128/72 12/12/22 11:38 Pulse Ox 98 12/12/22 11:38 Oxygen Delivery Method Room Air 12/12/22 11:38 BMI result Body Mass Index 31.3 Tobacco/Smoking Status: Tobacco use Status Tobacco use date assessed 12/12/22 12/12/22 11:38 Patient Tobacco Use Status Former Tobacco user 12/12/22 11:37 Tobacco use type Cigarette 12/12/22 11:37 e-Cigarette/Vaping Use Never Used 12/12/22 11:37 PHQ-9: PHQ-9 Score PHQ-9: Total score 0 12/12/22 12:08 Depression Screening Interpretation: Negative Thrive Assessment: Date of Thrive Assessment Date Thrive assessed 12/12/22 12/12/22 11:37 Currently or been in a relationship where the following occur: no concerns reported Const General: cooperative and no acute distress Orientation/consciousness: patient oriented x3 HENMT Head: Yes normocephalic and Yes atraumatic Eyes Conjunctivae: conjunctivae normal Chest Chest palpation & inspection: normal inspection of the chest Resp Effort & Inspection: normal respiratory effort Auscultation: clear to auscultation bilaterally, no crackles, no rhonchi and no wheezes Cardio Rate: regular rate Rhythm: regular rhythm Heart sounds: S1 normal heart sound present and S2 normal heart sound present GI Inspection: Yes normal to inspection General: Yes no CVA tenderness Back/Spine/Pelvis Back: no CVA tenderness Cervical Spine: normal cervical lordosis Thoracic/Lumbar Spine: thoracic and lumbar spine normal to inspection, paraspinal muscle tenderness on the right, No thoracic spinal tenderness and straight leg raise positive (lifting right leg exacerbates, pain on right side of back ) Neuro General: patient oriented x3 Extrem General: No edema Assessment and Plan Assessment & Plan (1) Right-sided low back pain with sciatica: Code(s): M54.41 - Lumbago with sciatica, right side Plan: Patient advised to take ibuprofen 600 mg q.8 hours as needed for pain and inflammation. Please take medication with food to prevent GI upset. Will also send cyclobenzaprine 5 mg to take at bedtime as needed. Patient advised not to take medication during the day while working or driving or caring for his child has a can make him drowsy. Patient agreeable to plan of care. Offered referral to initiate physical therapy for sciatica, however patient declines at this time. Patient requesting a work note as he is supposed to work tomorrow work note given for patient to return to work on Thursday12/15/2022. Plan Keep scheduled follow-up with PCP or follow-up sooner if needed. Medications: New ibuprofen 600 mg PO Q8H PRN 20 tabs 0RF pain M54.41 - Lumbago with sciatica, right side cyclobenzaprine 5 mg PO BEDTIME PRN 7 tabs 0RF muscle spasm Coding Level of Care Code Est Pt Level 3 (62995) Diagnoses Right-sided low back pain with sciatica M54.41
[2022-12-12 11:38] VITALS: BP 128/72; PULSE 78; O2SAT 98; BMI 31.3
== END 2022-12-12 12:15 | disposition home or self-care (01) ==
PROVIDERS: PCP Internal Medicine; Visit Provider Nurse Practitioner Family
DX: M54.41 Lumbago with sciatica, right side (principal)
CPT/HCPCS: 99213

== ENCOUNTER 2023-02-03 13:58 | Outpatient (AMB) | payer OTHER, SELFPAY ==
[2023-02-03 14:12] VITALS: BP 120/82; BMI 32.3
--- NOTE | 2023-02-03 14:12 | A.OFFPC_ITS ---
Vital Signs 02/03/23 14:12 Height 5 ft 7 in Weight 206 lb BMI 32.3 BP 120/82 Blood Pressure Location Lt brachial Position Sitting Intake Visit Reasons: PE Intake Note: Patient here for a physical exam Pre K Teacher Required: No Accompanied by: Self / Same As Patient Allergies No Known Allergies Allergy (Verified 02/03/23 14:25) Medication List - Last Reconciled 02/03/23 by Natalya Fuentes MD No Known Home Meds Tobacco use date assessed: 12/12/22 Dental Screening Dental Screen Date: 02/03/23 Did you have a dental visit in the last 12 months?: Yes Did you have a dental problem in the last 6 months where you did not have access to dental care?: No Was dental information given to patient?: Patient has dentist HPI HPI Comments History of Present Illness Details This is a 33-year-old male that comes for his physical exam. No chest pain or shortness of breath. Doing well. [facility] Medical History Left wrist pain Normocytic anemia Obese Hand numbness Abdominal pain Chest pain Left sided sciatica Hypovitaminosis D Dyslipidemia No known health problems Surgical History (Updated 02/03/23 @ 14:36 by Natalya Fuentes MD) History of hand surgery Family History (Updated 02/03/23 @ 14:30 by Natalya Fuentes MD) Father Hypertension Maternal Uncle Throat cancer Mother Diabetes Hypertension Rheumatoid arthritis Maternal Grandfather Diabetes Paternal Grandfather No problems noted. Maternal Uncle Colon cancer, Onset Age: 55 Housing: Apartment Alcohol intake: current Alcohol intake frequency: a few times a month Alcohol type: wine and hard liquor Patient Tobacco Use Status: Former Tobacco user Tobacco use type: Cigarette e-Cigarette/Vaping Use: Never Used Second Hand Smoke Exposure: No service: No Current occupational status: employed Current occupation: hotel maintenance, rt hand Current occupational exposures/hazards: No Cognitive needs: No Hearing needs: No Vision needs: No Questionnaire Thrive Questionnaire Date Thrive assessed: 12/12/22 SHAKILA-7 AMB Questionnaire SHAKILA-7 Date SHAKILA - 7 assessed: 12/12/22 Source: Developed by Drs. Oscar Krishnan, Melany Canchola, Howard Elizalde and colleagues, with an educational aj from [employer]. Review of Systems Const All systems reviewed & are unremarkable except as noted in HPI and below Eyes Reports no additional complaints, Denies change in vision and Denies other visual disturbances Card Denies chest pain at rest, Denies chest pain with activity, Denies edema, Denies irregular heart rhythm, Denies claudication, Denies dyspnea, Denies dyspnea on exertion, Denies orthopnea, Denies paroxysmal nocturnal dyspnea and Denies slow heart rate Resp Denies cough, Denies dyspnea and Denies dyspnea on exertion GI Denies abdominal pain, Denies change in bowel habits, Denies excessive flatus, Denies nausea and Denies vomiting Denies urinary hesitancy, Denies urinary incontinence and Denies urinary urgency Musc Denies abnormal gait, Denies atrophy, Denies deformity and Denies limited range of motion Skin/Breast Denies bleeding lesions, Denies changing lesions and Denies rash Neuro Denies abnormal gait and Denies lack of coordination Physical exam (Primary Care) Vital Signs: Last Vital Signs BP 120/82 02/03/23 14:12 BMI result Body Mass Index 32.3 Tobacco/Smoking Status: Tobacco use Status Tobacco use date assessed 12/12/22 02/03/23 14:16 Patient Tobacco Use Status Former Tobacco user 02/03/23 14:16 Tobacco use type Cigarette 02/03/23 14:16 e-Cigarette/Vaping Use Never Used 02/03/23 14:16 Thrive Assessment: Date of Thrive Assessment Date Thrive assessed 12/12/22 02/03/23 14:16 Const Orientation/consciousness: patient oriented x3 HENMT Head: Yes normal to inspection, Yes normocephalic and Yes atraumatic Ears: external ears normal Eyes General: appearance normal, both eyes and all related structures Eyelids: Yes eyelids normal Conjunctivae: conjunctivae normal Neck Neck: Yes normal visual inspection and Yes supple Resp Effort & Inspection: normal respiratory effort Auscultation: clear to auscultation bilaterally Cardio Jugular venous distension: no JVD Rate: regular rate Rhythm: regular rhythm Heart sounds: S1 normal heart sound present and S2 normal heart sound present GI Inspection: Yes normal to inspection Palpation (GI): Soft to palpation and nontender Auscultation: normal bowel sounds Skin General skin exam: no rashes or lesions noted Neuro General: patient oriented x3 and no focal motor deficits Extrem General: Yes full ROM Psych Appearance: grossly normal Office Procedures Flu Questionnaire Does the patient have a severe egg allergy?: No Immunizations flu vacc [id number] 6mos up(PF) 60 mcg(15 mcgx4)/0.5 mL IM syringe Performing Provider: Natalya Fuentes MD [facility] Documented (not given) by: TRACI Larry on 02/03/23 14:17 Reason Not Given: Patient Refused Assessment and Plan Assessment & Plan (1) Physical exam: Code(s): Z00.00 - Encounter for general adult medical examination without abnormal findings Plan: Repeat in a year. Orders: Orders Influenza [id number] Immunization Today Z23 - Encounter for immunization Vitamin D 25-OH Total Today E55.9 - Vitamin D deficiency, unspecified Lipid Panel Today E78.5 - Hyperlipidemia, unspecified, Z00.00 - Encounter for general adult medical examination without abnormal findings Comprehensive [place]. Panel Fast Today Z00.00 - Encounter for general adult medical examination without abnormal findings Coding Level of Care Code Est Pt Prev Care 18-39y(47456) Diagnoses Physical exam Z00.00 Time Spent (min) 30
== END 2023-02-03 14:34 | disposition home or self-care (01) ==
PROVIDERS: Visit Provider Internal Medicine
DX: Z00.00 Encounter for general adult medical examination without abnormal findings (principal); E55.9 Vitamin D deficiency, unspecified
CPT/HCPCS: 99395

== ENCOUNTER 2023-02-28 22:46 | Emergency (ER) | payer OTHER, SELFPAY ==
--- NOTE | 2023-02-28 | ECG_ITS ---
Test Reason : chest pain Blood Pressure : / mmHG Vent. Rate : 065 BPM Atrial Rate : 065 BPM P-R Int : 154 ms QRS Dur : 106 ms QT Int : 406 ms P-R-T Axes : 040 007 -05 degrees QTc Int : 422 ms Normal sinus rhythm Minimal voltage criteria for LVH, may be normal variant ( R in aVL ) Borderline ECG When compared with ECG of 24-OCT-2013 18:18, No significant change was found Referred By: Generic ED Physician Electronically Signed By:Lucio Piedra
[2023-02-28 22:48] VITALS: BP 127/71; PULSE 64; RESP 18; TEMP 36.8; O2SAT 99; BMI 31.8
[2023-02-28 23:07] LABS: Basophils Absolute Auto 0.1 X10*3/uL (0.0-0.2); Basophils Percent Auto 0.8 % (0-2); Eosinophils Absolute Auto 0.1 X10*3/uL (0.0-0.4); Eosinophils Percent Auto 1.7 % (0-4); Hematocrit 37.5 % (42.0-52.0); Imm Gran Abs Auto 0.01 X10*3/uL (0.00-0.03); Imm Gran Pct Auto 0.1 % (0.0-0.4); Lymphocytes Absolute Auto 2.8 X10*3/uL (1.2-4.9); Lymphocytes Percent Auto 36.4 % (20-40); MANUAL DIFF FLAG NO; Mean Corpuscular HGB Conc 34.7 g/dl (31.0-36.0); Mean Corpuscular Hemoglobin 29.6 pg (27.0-33.0); Mean Corpuscular Volume 85.4 fL (80.0-98.0); Mean Platelet Volume 10.6 fL (9.4-12.4); Monocytes Absolute Auto 0.5 X10*3/uL (0.1-1.2); Monocytes Percent Auto 6.2 % (2-11); Neutrophils Absolute Auto 4.2 x10*3/uL (2.0-8.3); Neutrophils Percent Auto 54.8 % (45-73); Platelet Count 204 X10*3/uL (160-400); Red Blood Count 4.39 X10*6/uL (4.60-5.80); Red Cell Distribution Width 12.3 % (11.0-16.0); White Blood Count 7.7 X10*3/uL (4.8-10.8)
[2023-02-28 23:23] LABS: Alanine Aminotransferase 19 U/L (0-40); Albumin Level 4.3 g/dL (3.5-5.0); Alkaline Phosphatase 82 U/L (39-117); Anion Gap 12 (12-20); Aspartate Amino Transferase 19 U/L (5-37); Bilirubin Direct < 0.2 mg/dL (0.0-0.5); Bilirubin Total 0.2 mg/dL (0.0-1.0); Blood Urea Nitrogen 18 mg/dL (9-16); Calcium 9.7 mg/dL (8.4-10.2); Carbon Dioxide 27 mmol/L (22-29); Chloride 103 mmol/L (96-108); Creatinine Clr Calc Pharmacy 90.1; Estimated Glomerular Filt Rate > 60; Glucose Random 93 mg/dL (60-115); Lipase 34 U/L (8-78); Potassium 3.2 mmol/L (3.3-5.1); Sodium 139 mmol/L (135-145); Total Protein 7.5 g/dL (6.5-8.0)
[2023-02-28 23:58] LABS: Troponin-I High Sensitivity < 2.7 ng/L (<3.5-35.0)
[2023-03-01 00:44] VITALS: BP 126/69; PULSE 58; RESP 16; TEMP 36.8; O2SAT 98
[2023-03-01 00:55] LABS: Appearance Urine Clear; Color Urine Yellow; Glucose Urine UA Negative (Negative); Leukocyte Esterase Urine Negative (Negative); Nitrite Urine Negative (Negative); PH 6.5 (5.0-9.0); Urine Blood Negative (Negative); Urine Ketones Trace mg/dL (Negative); Urine Protein Negative (Neg-Trace)
[2023-03-01 00:58] LABS: Bacteria Urine None Seen (None Seen); Hyaline Casts Urine 0-2 /LPF (0-2); RBC Urine 0-2 /HPF (0-2); Squamous Epithelial Cell Urine 0-2 /HPF (0-2); WBC Urine 0-5 /HPF (0-5)
--- NOTE | 2023-03-01 04:26 | ED.CHESTPAIN ---
HPI - Chest Pain General Chief Complaint: Abdominal Pain Stated Complaint: chest and back pain Time Seen by Provider: 03/01/23 04:24 Related Data Previous Rx's Medication Instructions Recorded oxycodone 5 mg tablet 5 mg PO Q6H PRN pain #14 tabs 03/01/23 Allergies Allergy/AdvReac Type Severity Reaction Status Date / Time No Known Allergies Allergy Verified 02/28/23 22:56 [facility] Past Medical History Medical History (Updated 03/01/23 @ 04:46 by Praveen Castelan MD) Left wrist pain Normocytic anemia Obese Hand numbness Abdominal pain Chest pain Left sided sciatica Hypovitaminosis D Dyslipidemia No known health problems Surgical History (Updated 02/03/23 @ 14:36 by Natalya Fuentes MD) History of hand surgery Family History Family History (Updated 02/03/23 @ 14:30 by Natalya Fuentes MD) Father Hypertension Maternal Uncle Throat cancer Mother Diabetes Hypertension Rheumatoid arthritis Maternal Grandfather Diabetes Paternal Grandfather No problems noted. Maternal Uncle Colon cancer, Onset Age: 55 Social History Social History Housing: Apartment Alcohol intake: current Alcohol intake frequency: a few times a month Alcohol type: wine and hard liquor Patient Tobacco Use Status: Former Tobacco user Tobacco use type: Cigarette e-Cigarette/Vaping Use: Never Used Second Hand Smoke Exposure: No Advance Directives: No Advance Directives Information Provided: No service: No Current occupational status: employed Current occupation: hotel maintenance, rt hand Current occupational exposures/hazards: No Cognitive needs: No Hearing needs: No Vision needs: No Physical Exam Vital Signs: Vital Signs: Last Vital Signs Temp 98.2 F 03/01/23 00:44 Pulse 58 03/01/23 00:44 Resp 16 03/01/23 00:44 BP 126/69 03/01/23 00:44 Pulse Ox 98 03/01/23 00:44 O2 Del Method Room Air 03/01/23 00:44 BMI result Body Mass Index 31.8 Medical Decision Making Lab Data 02/28/23 23:02 02/28/23 23:02 Labs: Lab Results 02/28/23 03/01/23 Range/Units 23:02 00:45 WBC 7.7 (4.8-10.8) X10*3/uL RBC 4.39 L (4.60-5.80) X10*6/uL Hgb 13.0 L (14.0-18.0) g/dl Hct 37.5 L (42.0-52.0) % MCV 85.4 (80.0-98.0) fL MCH 29.6 (27.0-33.0) pg MCHC 34.7 (31.0-36.0) g/dl RDW 12.3 (11.0-16.0) % Plt Count 204 (160-400) X10*3/uL MPV 10.6 (9.4-12.4) fL Immature Gran % (Auto) 0.1 (0.0-0.4) % Neut % (Auto) 54.8 (45-73) % Lymph % (Auto) 36.4 (20-40) % [place] % (Auto) 6.2 (2-11) % Eos % (Auto) 1.7 (0-4) % Baso % (Auto) 0.8 (0-2) % Lymph # (Auto) 2.8 (1.2-4.9) X10*3/uL [place] # (Auto) 0.5 (0.1-1.2) X10*3/uL Eos # (Auto) 0.1 (0.0-0.4) X10*3/uL Baso # (Auto) 0.1 (0.0-0.2) X10*3/uL Abs Immat Gran (auto) 0.01 (0.00-0.03) X10*3/uL Absolute Neuts (auto) 4.2 (2.0-8.3) x10*3/uL Absolute Nucleated RBC 0.000 (0.0-0.012) X10*3/uL Nucleated RBC % (auto) 0.0 (0.0-0.2) /100WBC Sodium 139 (135-145) mmol/L Potassium 3.2 L D (3.3-5.1) mmol/L Chloride 103 (96-108) mmol/L Carbon Dioxide 27 (22-29) mmol/L Anion Gap 12 (12-20) BUN 18 H (9-16) mg/dL Creatinine 1.22 (0.5-1.4) mg/dL Estim Creat Clear Calc 90.1 Estimated GFR > 60 Random Glucose 93 (60-115) mg/dL Calcium 9.7 (8.4-10.2) mg/dL Total Bilirubin 0.2 (0.0-1.0) mg/dL Direct Bilirubin < 0.2 (0.0-0.5) mg/dL AST 19 (5-37) U/L ALT 19 (0-40) U/L Alkaline Phosphatase 82 (39-117) U/L Troponin I High Sens < 2.7 (<3.5-35.0) ng/L Total Protein 7.5 (6.5-8.0) g/dL Albumin 4.3 (3.5-5.0) g/dL Lipase 34 (8-78) U/L Urine Color Yellow Urine Appearance Clear Urine pH 6.5 (5.0-9.0) Ur Specific [place] 1.020 (1.005-1.025) Urine Protein Negative (Neg-Trace) mg/dL Urine Glucose (UA) Negative (Negative) mg/dL Urine Ketones Trace (Negative) mg/dL Urine Blood Negative (Negative) Urine Nitrite Negative (Negative) Ur Leukocyte Esterase Negative (Negative) Urine RBC 0-2 (0-2) /HPF Urine WBC 0-5 (0-5) /HPF Ur Squamous Epith Cells 0-2 (0-2) /HPF Urine Bacteria None Seen (None Seen) Hyaline Casts 0-2 (0-2) /LPF Independent Interpretation I performed an independent interpretation of an: EKG Interpretation: My independent interpretation patient's EKG done at 22:51 hours is as follows: Normal sinus rhythm with a rate of 65, normal WI interval, prolonged QRS duration of 106 milliseconds, normal QTC interval, RR prime in leads 3, no ST segment elevation, no ST segment depression, inverted T-wave in lead 3, no PACs, no PVCs Discharge Plan Discharge Clinical Impression: Biliary colic Patient Disposition: Home, Self-Care Instructions: Biliary Colic (ED) Additional Instructions: Your blood work was normal. Your presentation is consistent with gallstones causing pain in your gallbladder (biliary colic) I a.m. giving you an outpatient request form to get an outpatient ultrasound of your gallbladder. Call the hospital main number and asked to be transferred to the radiology department to schedule an ultrasound. They should schedule the ultrasound for the morning in you need to fast for 8-12 hours before the study. You cannot eat or drink anything before the study. Take ibuprofen 200 mg pills, 3 pills every 6 hours as needed for pain. Take Tylenol (acetaminophen) 500 mg pills, 2 pills every 4-6 hours as needed for pain. For pain not relieved by ibuprofen or Tylenol take oxycodone 5 mg pills, 1 pill every 4 hours as needed for pain. Do not drive or work while taking this medication since they can cause sleepiness. Oxycodone is a narcotic medication that can be addicting. If you are concerned about addiction you can ask the pharmacist for less pills or do not get this prescription filled. Follow-up with your doctor in 2 days. Please return to the emergency department if your symptoms get worse or if you develop any symptoms that are concerning to you. Prescriptions: New oxycodone 5 mg tablet 5 mg PO Q6H PRN (Reason: pain) Qty: 14 0RF Rx Instructions: Patient may request partial fill; Partial Fill upon patient request.
== END 2023-03-01 05:10 | disposition home or self-care (01) ==
PROVIDERS: Emergency Provider Emergency Medicine Emergency Medical Services; PCP Internal Medicine
DX: K80.50 Calculus of bile duct without cholangitis or cholecystitis without obstruction (principal); R07.9 Chest pain, unspecified; E78.5 Hyperlipidemia, unspecified
CPT/HCPCS: 36415; 80053; 81001; 82248; 83690; 84484; 85025; 93005; 99284

== ENCOUNTER → 2023-02-28 22:51 | Outpatient (BNV) | payer OTHER, SELFPAY | PROVIDERS: Emergency Provider Emergency Medicine Emergency Medical Services; PCP Internal Medicine; Visit Provider Internal Medicine Cardiovascular Disease | DX: R07.9 Chest pain, unspecified (principal) | CPT/HCPCS: 93010 ==

== ENCOUNTER 2023-03-06 07:43 | Outpatient (REF) | payer OTHER, SELFPAY ==
--- NOTE | ~2023-03-06 | US_ITS ---
EXAMINATION: US ABDOMEN COMPLETE CLINICAL INFORMATION: Right upper quadrant pain. Rule out gallstones. COMPARISON: Ultrasound abdomen limited 07/02/2021 and 03/20/2020. X-ray KUB 08/24/2019. TECHNIQUE: Real-time imaging of the abdominal viscera. FINDINGS: PANCREAS: Obscured. ABDOMINAL AORTA: Visualized portions are normal. INFERIOR VENA CAVA: Visualized portions are normal. LIVER: The liver is normal in size. The liver contour is normal. There is diffuse increased liver parenchymal echogenicity, consistent with hepatic steatosis. No focal hepatic lesion. There is no intrahepatic biliary duct dilatation seen. GALLBLADDER: The gallbladder is physiologically distended without evidence of stones, sludge, polyps, wall thickening or pericholecystic fluid. COMMON BILE DUCT: Normal in caliber measuring 0.4 cm in diameter. RIGHT KIDNEY: No hydronephrosis. No renal calculi or focal parenchymal lesions. The kidney measures 10.7 cm in maximum dimension. LEFT KIDNEY: No hydronephrosis. No renal calculi or focal parenchymal lesions. The kidney measures 10.8 cm in maximum dimension. SPLEEN: The spleen measures 10.1 cm in maximum dimension. FREE FLUID: None. US/US abdomen complete IMPRESSION: Hepatic steatosis.
== END 2023-03-06 07:44 | disposition home or self-care (01) ==
LOC: HO.US 07:43
PROVIDERS: Visit Provider Internal Medicine
DX: R10.11 Right upper quadrant pain (principal); K80.50 Calculus of bile duct without cholangitis or cholecystitis without obstruction
CPT/HCPCS: 76700

== ENCOUNTER 2023-03-18 09:27 | Outpatient (REF) | payer OTHER, SELFPAY | END 2023-03-18 09:28 | disposition home or self-care (01) | LOC: HO.LAB 09:27 | PROVIDERS: PCP Internal Medicine; Visit Provider Internal Medicine | DX: Z00.00 Encounter for general adult medical examination without abnormal findings (principal); E55.9 Vitamin D deficiency, unspecified; E78.5 Hyperlipidemia, unspecified | CPT/HCPCS: 36415; 80053; 80061; 82306 ==

== ENCOUNTER 2023-09-02 09:35 | Outpatient (AMB) | payer OTHER, SELFPAY ==
--- NOTE | 2023-09-02 09:42 | MHC.OFFWIV ---
Intake Vital Signs 09/02/23 09:43 Height 5 ft 6 in Weight 189 lb 2 oz BMI 30.5 BP 126/70 Blood Pressure Location Rt brachial Position Sitting Respiration 14 Pulse 77 Pulse Source Pulse Oximeter Temp 97.8 F Temp Source Temporal Artery Scan Pulse Oximetry (%) 99 Oxygen Delivery Method Room Air Intake Visit Reasons: Sharp pain in right side Patient Tobacco Use Status: Never used Tobacco Retail Team Member Required: No Accompanied by: Self / Same As Patient Allergies Seasonal Allergies Allergy (Intermediate, Verified 09/02/23 10:01) sinus problems Medication List - Last Reconciled 09/02/23 by [facility] No Known Home Meds Do you need a note to return to daycare/school/sports/work: Yes Return to daycare/school/sports/work/other note: work HPI HPI Comments History of Present Illness Details Here today for c/o acute on chronic RUQ pain w/u for gallbladder in the past and reports negative Found to have fatty liver He reports pain in RUQ and radiates into R flank last night when laying down felt a stabbing pain worried he has a kidney stone because his friend had 1. Sometimes when he has this pain stops inspiration. I reviewed his records which showed 3 abdominal ultrasounds today. All showed fatty liver with normal gallbladder. No other abnormalities. He denies fever, chills, nausea, vomiting. Reports normal elimination. Plan UA obtained today and negative for hematuria. Low likelihood renal calculi. We will check a stool for H pylori. If positive will treat. Otherwise advised him to follow up with his primary care for additional workup. [facility] Medical History (Updated 03/02/23 @ 00:02 by Aquiles Robledo) Left wrist pain Normocytic anemia Obese Hand numbness Abdominal pain Chest pain Left sided sciatica Hypovitaminosis D Dyslipidemia No known health problems Surgical History (Updated 02/03/23 @ 14:36 by Natalya Fuentes MD) History of hand surgery Family History (Updated 02/03/23 @ 14:30 by Natalya Fuentes MD) Father Hypertension Maternal Uncle Throat cancer Mother Diabetes Hypertension Rheumatoid arthritis Maternal Grandfather Diabetes Paternal Grandfather No problems noted. Maternal Uncle Colon cancer, Onset Age: 55 Social History Housing: Apartment Alcohol intake: current Alcohol intake frequency: a few times a month Alcohol type: wine and hard liquor Patient Tobacco Use Status: Never used Tobacco Tobacco use type: Cigarette e-Cigarette/Vaping Use: Never Used Second Hand Smoke Exposure: No service: No Current occupational status: employed Current occupation: hotel maintenance, rt hand Current occupational exposures/hazards: No Cognitive needs: No Hearing needs: No Vision needs: No Review of Systems Const All systems reviewed & are unremarkable except as noted in HPI and below Physical Exam Vital Signs: Last Vital Signs Temp 97.8 F 09/02/23 09:43 Pulse 77 09/02/23 09:43 Resp 14 09/02/23 09:43 BP 126/70 09/02/23 09:43 Pulse Ox 99 09/02/23 09:43 Oxygen Delivery Method Room Air 09/02/23 09:43 BMI result Body Mass Index 30.5 Const Other: Awake alert oriented no acute distress Mucous membranes moist Regular rate and rhythm No CVAT bilat Right upper quadrant mildly tender with palpation, positive Bolton's sign. Bowel sounds normoactive. No peritoneal signs. Assessment & Plan Assessment & Plan (1) Right upper quadrant abdominal pain: Code(s): R10.11 - Right upper quadrant pain Plan: . This note is constructed using voice recognition software. While every effort has been made to ensure accuracy in wood block artist, still errors may have been included Sometimes, these errors may affect the content or meaning of the given sentence . Total time spent caring for the patient today was 30 minutes. This includes time spent before the visit reviewing the chart, time spent during the visit, and time spent after the visit on documentation Plan . Orders: Orders UA and rflx microscopic Today R10.11 - Right upper quadrant pain H pylori Ag Stool Today R10.11 - Right upper quadrant pain Coding Level of Care Code Est Pt Level 4 (05800) Diagnoses Right upper quadrant abdominal pain R10.11
[2023-09-02 09:43] VITALS: BP 126/70; PULSE 77; RESP 14; TEMP 36.6; O2SAT 99; BMI 30.5
== END 2023-09-02 10:30 | disposition home or self-care (01) ==
PROVIDERS: PCP Internal Medicine; Visit Provider Nurse Practitioner Family
DX: R10.11 Right upper quadrant pain (principal)
CPT/HCPCS: 99214

== ENCOUNTER 2023-09-02 10:09 | Outpatient (REF) | payer OTHER, SELFPAY ==
[2023-09-02 11:50] LABS: Appearance Urine Clear; Color Urine Yellow; Glucose Urine UA Negative (Negative); Leukocyte Esterase Urine Trace (Negative); Nitrite Urine Negative (Negative); UMIC TRIGGER UA YES; Urine Blood Negative (Negative); Urine Ketones Trace mg/dL (Negative); Urine Protein Negative (Neg-Trace)
[2023-09-02 11:57] LABS: Bacteria Urine None Seen (None Seen); Hyaline Casts Urine 0-2 /LPF (0-2); RBC Urine 0-2 /HPF (0-2); Squamous Epithelial Cell Urine 0-2 /HPF (0-2); WBC Urine 0-5 /HPF (0-5)
== END 2023-09-02 10:10 | disposition home or self-care (01) ==
LOC: HO.WFDLDS 10:09
PROVIDERS: Visit Provider Nurse Practitioner Family
DX: R10.11 Right upper quadrant pain (principal)
CPT/HCPCS: 81001

== ENCOUNTER 2023-09-03 15:03 | Outpatient (REF) | payer OTHER, SELFPAY | END 2023-09-03 15:04 | disposition home or self-care (01) | LOC: HO.LNP 15:03 | PROVIDERS: Visit Provider Nurse Practitioner Family | DX: R10.11 Right upper quadrant pain (principal) | CPT/HCPCS: 87338 ==

== ENCOUNTER 2023-09-10 10:39 | Outpatient (AMB) | payer OTHER, SELFPAY ==
--- NOTE | 2023-09-10 10:42 | AM.OFFWIN_ITS ---
Intake Vital Signs 09/10/23 10:47 Height 5 ft 6 in Weight 187 lb 2 oz BMI 30.2 BP 106/60 Blood Pressure Location Lt brachial Position Sitting Respiration 12 Pulse 59 Pulse Source Pulse Oximeter Temp 98.4 F Temp Source Oral Pulse Oximetry (%) 99 Oxygen Delivery Method Room Air Intake Visit Reasons: Abdominal pain clogged ears and dizziness Intake Note: Abdominal pain ongoing, clogged ears, dizziness when bending down and then standing back up. Patient Tobacco Use Status: Current someday Tobacco user Allergies Seasonal Allergies Allergy (Intermediate, Verified 09/10/23 10:57) sinus problems Medication List - Last Reconciled 09/10/23 by Thea Sanches, [employer]- No Known Home Meds Do you need a note to return to daycare/school/sports/work: Yes Return to daycare/school/sports/work/other note: work HPI HPI Comments History of Present Illness Details Here today with ongoing abdominal pain in the right upper quadrant. I saw him for this in the walk-in just a few days ago. The workup was reviewed with him after the initial visit and was reviewed with him again today. Unfortunately there was not much more I can do for him at the walk-in. He needs to follow up with his primary care. He is aware and understanding of that. He offers no new complaints in regards to the right upper quadrant pain. I have sent a direct message to his primary care's office, see below: Hi I have seen him twice now for chronic RUQ pain I did labs and stool testing and this nontelling he likely needs a further work up Given that i have only seen him as Walk in i cannot refer to gI or order advanced imaging such a HIDA scan,etc he reports next appt w/ Dr Pettit 01/2024 ... can he be seen any sooner w/ an available provider through PCP ? Please f/u directly w/ patient on this. He is aware im reaching out. Thea He has a new complaint of bilat ear pain that started since last office visit, left worse than right. Associated with sensitivity to sound. Admits seasonal allergies. Exposure to water x1 however this occurred after the onset of his symptoms. Denies any trauma or previous URI symptoms. No at home treatments. TM intact with fluid behind both, left worse than right, EAC clear Nares patent, turbinates pale and edematous, left worse than right Plan Start levocetirizine and take daily until allergy symptoms are resolved. Self insufflation. Flonase 1 spray each side twice per day. In regards to the abdominal pain I have sent a message to his primary care to further coordinate his care. [facility] Medical History (Updated 09/10/23 @ 11:49 by Thea Sanches, [facility]) Left wrist pain Normocytic anemia Obese Hand numbness Abdominal pain Chest pain Left sided sciatica Hypovitaminosis D Dyslipidemia No known health problems Surgical History (Updated 02/03/23 @ 14:36 by Natalya Fuentes MD) History of hand surgery Family History (Updated 02/03/23 @ 14:30 by Natalya Fuentes MD) Father Hypertension Maternal Uncle Throat cancer Mother Diabetes Hypertension Rheumatoid arthritis Maternal Grandfather Diabetes Paternal Grandfather No problems noted. Maternal Uncle Colon cancer, Onset Age: 55 Social History Housing: Apartment Alcohol intake: current Alcohol intake frequency: a few times a month Alcohol type: wine and hard liquor Patient Tobacco Use Status: Current someday Tobacco user Tobacco use type: Cigarette e-Cigarette/Vaping Use: Never Used Second Hand Smoke Exposure: No service: No Current occupational status: employed Current occupation: hotel maintenance, rt hand Current occupational exposures/hazards: No Cognitive needs: No Hearing needs: No Vision needs: No Review of Systems Const All systems reviewed & are unremarkable except as noted in HPI and below Physical Exam Vital Signs: Last Vital Signs Temp 98.4 F 09/10/23 10:47 Pulse 59 09/10/23 10:47 Resp 12 09/10/23 10:47 BP 106/60 09/10/23 10:47 Pulse Ox 99 09/10/23 10:47 Oxygen Delivery Method Room Air 09/10/23 10:47 BMI result Body Mass Index 30.2 Assessment & Plan Assessment & Plan (1) Seasonal allergies: Code(s): J30.2 - Other seasonal allergic rhinitis Plan: . (2) Eustachian tube dysfunction: Code(s): H69.90 - Unspecified Eustachian tube disorder, unspecified ear Qualifiers: Laterality: bilateral Qualified Code(s): H69.93 - Unspecified Eustachian tube disorder, bilateral Plan: . (3) Right upper quadrant abdominal pain: Code(s): R10.11 - Right upper quadrant pain Plan . This note is constructed using voice recognition software. While every effort has been made to ensure accuracy in armature winder automotive, still errors may have been included Sometimes, these errors may affect the content or meaning of the given sentence . Total time spent caring for the patient today was 40 minutes. This includes time spent before the visit reviewing the chart, time spent during the visit, and time spent after the visit on documentation Medications: New fluticasone propionate 50 mcg/actuation administer into each nostril 1 spray intranasal BID 16 grams 0RF levocetirizine 5 mg PO DAILY PRN 90 tabs 0RF allergy symptoms Patient Instructions: Plan Start levocetirizine and take daily until allergy symptoms are resolved. Self insufflation. Flonase 1 spray each side twice per day. In regards to the abdominal pain I have sent a message to his primary care to further coordinate his care. Coding Level of Care Code Est Pt Level 5 (38904) Diagnoses Seasonal allergies J30.2 Dysfunction of both eustachian tubes H69.93 Laterality: bilateral Right upper quadrant abdominal pain R10.11
[2023-09-10 10:47] VITALS: BP 106/60; PULSE 59; RESP 12; TEMP 36.9; O2SAT 99; BMI 30.2
== END 2023-09-10 11:08 | disposition home or self-care (01) ==
PROVIDERS: PCP Internal Medicine; Visit Provider Nurse Practitioner Family
DX: J30.2 Other seasonal allergic rhinitis (principal); H69.93 Unspecified Eustachian tube disorder, bilateral; R10.11 Right upper quadrant pain
CPT/HCPCS: 99215

== ENCOUNTER 2023-09-14 15:02 | Outpatient (AMB) | payer OTHER, SELFPAY ==
[2023-09-14 15:05] VITALS: BP 110/68; PULSE 70; O2SAT 98; BMI 30.2
--- NOTE | 2023-09-14 15:05 | MHC.OFFVIS ---
Vital Signs 09/14/23 15:05 Height 5 ft 6 in Weight 187 lb 2 oz BMI 30.2 BP 110/68 Blood Pressure Location Lt brachial Position Sitting Pulse 70 Pulse Source Pulse Oximeter Pulse Oximetry (%) 98 Oxygen Delivery Method Room Air Intake Visit Reasons: Abdominal pain Intake Note: Pt is here for RUQ abdominal pain with back pain for 2-3 months. Office Administration Required: No Accompanied by: Self / Same As Patient Allergies Seasonal Allergies Allergy (Intermediate, Verified 09/14/23 15:31) sinus problems Medication List - Last Reconciled 09/14/23 by Natalya Fuentes MD fluticasone propionate 50 mcg/actuation 1 spray intranasal BID levocetirizine 5 mg PO DAILY PRN HPI Comments Details: This is a 33-year-old male with seasonal allergies and low vitamin-D that complains of right upper quadrant abdominal pain that has been on and off for the past few months. Had an ultrasound of the abdomen showing fatty liver and was eating well and exercising. Abdominal pain was control but now it is started again. He also complains of chest pain that happens at rest or on exertion that has been present for few years. EKG will be ordered. Seasonal allergies has improved with antihistamines. Had low vitamin-D and I will send a supplement. [facility] Medical History (Updated 09/14/23 @ 15:52 by Natalya Fuentes MD) Left wrist pain Normocytic anemia Obese Hand numbness Abdominal pain Chest pain Left sided sciatica Hypovitaminosis D Dyslipidemia No known health problems Surgical History History of hand surgery Family History Father Hypertension Maternal Uncle Throat cancer Mother Diabetes Hypertension Rheumatoid arthritis Maternal Grandfather Diabetes Paternal Grandfather No problems noted. Maternal Uncle Colon cancer, Onset Age: 55 Social History Housing: Apartment Alcohol intake: current Alcohol intake frequency: a few times a month Alcohol type: wine and hard liquor Patient Tobacco Use Status: Current someday Tobacco user Tobacco use type: Cigarette e-Cigarette/Vaping Use: Never Used Second Hand Smoke Exposure: No service: No Current occupational status: employed Current occupation: hotel maintenance, rt hand Current occupational exposures/hazards: No Cognitive needs: No Hearing needs: No Vision needs: No Review of Systems Const All systems reviewed & are unremarkable except as noted in HPI and below Card Reports chest pain at rest, Denies chest pain with activity, Denies edema, Denies irregular heart rhythm, Denies claudication, Denies dyspnea, Denies dyspnea on exertion, Denies orthopnea, Denies paroxysmal nocturnal dyspnea and Denies slow heart rate Resp Denies cough, Denies dyspnea and Denies dyspnea on exertion GI Reports abdominal pain Musc Denies atrophy, Denies deformity and Denies limited range of motion Physical Exam Vital Signs: Last Vital Signs Pulse 70 09/14/23 15:05 BP 110/68 09/14/23 15:05 Pulse Ox 98 09/14/23 15:05 Oxygen Delivery Method Room Air 09/14/23 15:05 BMI result Body Mass Index 30.2 Resp Effort & Inspection: normal respiratory effort Auscultation: clear to auscultation bilaterally Cardio Jugular venous distension: no JVD Rate: regular rate Rhythm: regular rhythm Heart sounds: S1 normal heart sound present and S2 normal heart sound present GI Inspection: Yes normal to inspection Palpation (GI): Soft to palpation and nontender Auscultation: normal bowel sounds Extrem General: Yes full ROM Quality Reporting (2019) Adult ([facility] 138/2//) Smoking risk assessment performed?: Yes Patient Tobacco Use Status: Current someday Tobacco user Depression/Bipolar (159/160/161/177) PHQ-9: Total score: 0 Assessment & Plan Assessment & Plan (1) Chest pain: Code(s): R07.9 - Chest pain, unspecified Category: Medical Qualifiers: Chest pain type: unspecified Qualified Code(s): R07.9 - Chest pain, unspecified Plan: EKG ordered. (2) Seasonal allergies: Code(s): J30.2 - Other seasonal allergic rhinitis Category: Medical Plan: Continue antihistamines. (3) Hypovitaminosis D: Code(s): E55.9 - Vitamin D deficiency, unspecified Category: Medical Plan: Restart vitamin-D supplements. (4) Right upper quadrant abdominal pain: Code(s): R10.11 - Right upper quadrant pain Category: Medical Plan: Referred to Gastroenterology. Orders: Orders Vitamin D 25-OH Total 4 Months E55.9 - Vitamin D deficiency, unspecified ECG 12 lead EKG Today R07.9 - Chest pain, unspecified Lipid Panel 4 Months R07.9 - Chest pain, unspecified Comprehensive Welch. Panel Fast 4 Months R07.9 - Chest pain, unspecified Referrals Gastroenterology Referral K76.0 - Fatty (change of) liver, not elsewhere classified, R10.11 - Right upper quadrant pain Medications: New cholecalciferol (vitamin D3) 25 mcg PO DAILY 90 days 90 caps 1RF Coding Level of Care Code Est Pt Level 4 (32293) Complex EM visit Add On G2211 Diagnoses Chest pain, unspecified type R07.9 Chest pain type: unspecified Seasonal allergies J30.2 Hypovitaminosis D E55.9 Right upper quadrant abdominal pain R10.11 Additional Codes SHAKILA-7 Assessment Billing - SHAKILA-7 Assessment Tool: SHAKILA-7 Assessment 54193 ([id number]) Time Spent (min) 21 Thrive Questionnaire Date Thrive assessed: 09/14/23 I am a: Patient What is your living situation today?: I have a steady place to live Within the past 12 months, did the food you bought not last and you didn't have the money to get more?: Never true Within the past 12 months, did you worry whether your food would run out before you got money to buy more?: Never true Do you have trouble paying for medicines?: No Do you have trouble getting transportation to medical appointments?: No Do you have trouble paying your heating and electricity bill?: No Do you have trouble taking care of your child, family member or friend?: No Do you have trouble with day-to-day activities such as bathing, preparing meals, shopping, managing finances, etc.?: No Are you currently unemployed and looking for a job?: No Are you interested in more education?: No Please select the resources that you would like help with: None Currently or been in a relationship where the following occur: No concerns reported THRIVE Score: 0 SHAKILA-7 AMB Questionnaire SHAKILA-7 Date SHAKILA - 7 assessed: 09/14/23 Feeling nervous, anxious, or on edge: 0 = Not at all Not being able to stop or control worryin = Not at all Worrying too much about different things: 0 = Not at all Trouble relaxin = Not at all Being so restless that it is hard to sit still: 0 = Not at all Becoming easily annoyed or irritable: 0 = Not at all Feeling afraid as if something awful might happen: 0 = Not at all Total SHAKILA-7 score (0-4 normal; 5-9 mild; 10-14 moderate; 15-21 severe): 0 Source: Developed by Drs. Oscar Krishnan, Melany Canchola, Howard Elizalde and colleagues, with an educational aj from [employer]. SHAKILA-7 Assessment Billing SHAKILA-7 Assessment Tool: SHAKILA-7 Assessment 19173 PHQ-9 Over the last 2 weeks, how often have you been bothered by any of the following problems? 1. Little interest or pleasure in doing things: not at all 2. Feeling down, depressed, or hopeless: not at all 3. Trouble falling or staying asleep, or sleeping too much: not at all 4. Feeling tired or having little energy: not at all 5. Poor appetite or overeating: not at all 6. Feeling bad about yourself - or that you are a failure or have let yourself or your family down: not at all 7. Trouble concentrating on things, such as reading the newspaper or watching television: not at all 8. Moving or speaking so slowly that other people could have noticed. Or the opposite - being so fidgety or restless that you have been moving around a lot more than usual: not at all 9. Thoughts that you would be better off or of hurting yourself in some way: not at all Total score: 0 Depression Screening Interpretation: Negative Depression Screening Done: Yes 01972 - PHQ-9 Billing: Yes Source: Developed by Drs. Oscar Krishnan, Melany Canchola, Howard Elizalde and colleagues, with an educational aj from [employer].
== END 2023-09-14 15:41 | disposition home or self-care (01) ==
PROVIDERS: PCP Internal Medicine; Visit Provider Internal Medicine
DX: R07.9 Chest pain, unspecified (principal); J30.2 Other seasonal allergic rhinitis; E55.9 Vitamin D deficiency, unspecified; R10.11 Right upper quadrant pain
CPT/HCPCS: 99214; G2211

== ENCOUNTER 2023-09-30 10:41 | Emergency (ER) | payer OTHER, SELFPAY ==
[2023-09-30 10:45] VITALS: BP 118/72; PULSE 55; RESP 18; TEMP 35.7; O2SAT 99; BMI 30.2
[2023-09-30 11:04] LABS: MANUAL DIFF FLAG NO
[2023-09-30 11:07] LABS: Basophils Absolute Auto 0.1 X10*3/uL (0.0-0.2); Eosinophils Percent Auto 0.8 % (0-4); Hematocrit 42.5 % (42.0-52.0); Hemoglobin 14.3 g/dl (14.0-18.0); Imm Gran Abs Auto 0.01 X10*3/uL (0.00-0.03); Imm Gran Pct Auto 0.2 % (0.0-0.4); Lymphocytes Absolute Auto 1.7 X10*3/uL (1.2-4.9); Mean Corpuscular HGB Conc 33.6 g/dl (31.0-36.0); Mean Corpuscular Volume 89.1 fL (80.0-98.0); Mean Platelet Volume 11.1 fL (9.4-12.4); Monocytes Absolute Auto 0.3 X10*3/uL (0.1-1.2); Monocytes Percent Auto 6.2 % (2-11); Neutrophils Absolute Auto 2.8 x10*3/uL (2.0-8.3); Neutrophils Percent Auto 56.8 % (45-73); Platelet Count 215 X10*3/uL (160-400); Red Blood Count 4.77 X10*6/uL (4.60-5.80); Red Cell Distribution Width 12.3 % (11.0-16.0)
[2023-09-30 11:30] LABS: Alanine Aminotransferase 16 U/L (0-40); Albumin Level 4.5 g/dL (3.5-5.0); Alkaline Phosphatase 73 U/L (39-117); Anion Gap 10 (12-20); Aspartate Amino Transferase 16 U/L (5-37); Bilirubin Total 0.5 mg/dL (0.0-1.0); Blood Urea Nitrogen 13 mg/dL (9-16); Calcium 9.8 mg/dL (8.4-10.2); Carbon Dioxide 29 mmol/L (22-29); Chloride 106 mmol/L (96-108); Creatinine Clr Calc Pharmacy 112.9; Estimated Glomerular Filt Rate > 60; Glucose Random 92 mg/dL (60-115); Lipase 28 U/L (8-78); Potassium 4.3 mmol/L (3.3-5.1); Sodium 141 mmol/L (135-145); Total Protein 7.7 g/dL (6.5-8.0)
[2023-09-30 11:48] LABS: Appearance Urine Clear; Color Urine Yellow; Glucose Urine UA Negative (Negative); Leukocyte Esterase Urine Negative (Negative); Nitrite Urine Negative (Negative); Specific Gravity - Urine >= 1.030 (1.005-1.025); Urine Blood Negative (Negative); Urine Ketones Negative (Negative); Urine Protein Negative (Neg-Trace)
[2023-09-30 11:49] VITALS: BP 119/76; PULSE 58; RESP 18; TEMP 36.7; O2SAT 99
--- NOTE | 2023-09-30 11:52 | PC.NURSE ---
Pt comes from home for 8/10 abdominal pain on the right side that sometimes radiates into his middle back area. Pt states he's had this for a few months but the pain is starting to get worse, he has an appt with a GI doctor in November. He also stated he felt a burning sensation on the right side of his stomach, sob when the pain gets bad (sharp, achy). Denies cp/dizziness/n/v/d. A/ox4, respirations even and unlabored, lung sounds cta bilaterally, abdomen soft, doesn't hurt to palpation. Pt resting in bed quietly, call quinn within reach, awaiting further orders at this time.
--- NOTE | 2023-09-30 13:32 | ED.ABDPAIN ---
HPI - Abdominal Pain General Chief Complaint: Abdominal Pain Stated Complaint: R side pain Time Seen by Provider: 09/30/23 12:35 Source: patient Mode of arrival: ambulatory History of Present Illness ED Provider: Dr Buitrago HPI narrative: 33-year-old male with intermittent right upper quadrant discomfort that is more uncomfortable at night, he has followed up with his primary care doctor and has a pending referral to Gastroenterology. This is not been associated with any new cough/sore throat/fever/chills/nausea/vomiting or any episodes of diarrhea or renal discomfort and no history of kidney stones. Related Data Previous Rx's ?Medication ?Instructions ?Recorded fluticasone propionate 50 1 spray intranasal BID #16 grams 09/10/23 mcg/actuation nasal spray,suspension levocetirizine 5 mg tablet 5 mg PO DAILY PRN allergy symptoms 09/10/23 #90 tabs cholecalciferol (vitamin D3) 25 25 mcg PO DAILY 90 days #90 caps 09/14/23 mcg (1,000 unit) capsule Allergies Allergy/AdvReac Type Severity Reaction Status Date / Time Seasonal Allergies Allergy Intermediate sinus Verified 09/30/23 10:47 problems Review of Systems Review of Systems Pertinent positives and negatives as stated in HPI PMFSH Past Medical History Source: nursing notes reviewed Medical History Left wrist pain Normocytic anemia Obese Hand numbness Abdominal pain Chest pain Left sided sciatica Hypovitaminosis D Dyslipidemia No known health problems Surgical History History of hand surgery Family History Family History Father Hypertension Maternal Uncle Throat cancer Mother Diabetes Hypertension Rheumatoid arthritis Maternal Grandfather Diabetes Paternal Grandfather No problems noted. Maternal Uncle Colon cancer, Onset Age: 55 Social History Social History Housing: Apartment Alcohol intake: current Alcohol intake frequency: a few times a month Alcohol type: wine and hard liquor Patient Tobacco Use Status: Current someday Tobacco user Tobacco use type: Cigarette e-Cigarette/Vaping Use: Never Used Second Hand Smoke Exposure: No Advance Directives: No service: No Current occupational status: employed Current occupation: [employer] maintenance, rt hand Current occupational exposures/hazards: No Cognitive needs: No Hearing needs: No Vision needs: No Physical Exam ED Vital Signs: Vital Signs - 24 hr 09/30/23 10:45 09/30/23 11:49 Temperature 96.2 F L 98.0 F Pulse Rate 55 58 Respiratory Rate 18 18 Blood Pressure 118/72 119/76 Pulse Oximetry 99 99 Oxygen Delivery Method Room Air Room Air BMI result Body Mass Index 30.2 VITAL SIGNS: Reviewed. GENERAL: Well developed, well nourished, in no acute distress. HEAD: Normocephalic/atraumatic EYES: PERRLA, EOMI EARS: Ext canals without abnormality NOSE: Nares patent bilateral OROPHARYNX: no oral lesions noted, posterior pharynx clear NECK: Supple, no adenopathy LUNGS: Normal breath sounds. No adventitious sounds or accessory muscle use. SpO2<99> CARDIOVASCULAR: Regular rate and rhythm without noted murmurs ABDOMEN: Soft, minimal tenderness on palpation, non-distended with bowel sounds. MUSCULOSKELETAL: No tenderness, deformities, or effusions noted on gross inspection. EXTREMITIES: No cyanosis, clubbing or edema. SKIN: Inspection of the skin reveals no rashes NEUROLOGIC: Alert and oriented x 4. Strength and sensation to light touch were grossly intact x 4. Medical Decision Making Medical Decision Making MDM Narrative: 33-year-old male with history and clinical presentation, DDX: Ulcer, gastritis, low clinical suspicion for cholecystitis or pancreatitis and no clinical suspicion for renal colic. I reviewed and interpreted all investigations and hematologic indices are negative for leukocytosis/anemia or thrombocytopenia. Chemistry indices are negative for STANLEY/electrolyte or liver enzyme derangements and lipase is within normal limits. Urinalysis is negative for UTI or hematuria. It is my interpretation the patient does not require chest x-ray to rule out pneumonia as there is no reported fevers/cough. This is not a traumatic injury either so do not suspect any rib fractures. My interpretation is musculoskeletal. Differential Diagnosis Differential Diagnoses: The differential diagnosis associated with the presentation includes Please see the discussion above Admission/Observation Consideration of admission/observation: Escalation of care including admission/observation considered Please see the discussion above Lab Data MDM Lab Attestation statement: I reviewed the patient's lab results. Please see the discussion above 09/30/23 11:00 09/30/23 11:00 Labs: Lab Results 09/30/23 09/30/23 Range/Units 11:00 11:40 WBC 5.0 (4.8-10.8) X10*3/uL RBC 4.77 (4.60-5.80) X10*6/uL Hgb 14.3 (14.0-18.0) g/dl Hct 42.5 (42.0-52.0) % MCV 89.1 (80.0-98.0) fL MCH 30.0 (27.0-33.0) pg MCHC 33.6 (31.0-36.0) g/dl RDW 12.3 (11.0-16.0) % Plt Count 215 (160-400) X10*3/uL MPV 11.1 (9.4-12.4) fL Immature Gran % (Auto) 0.2 (0.0-0.4) % Neut % (Auto) 56.8 (45-73) % Lymph % (Auto) 35.0 (20-40) % [place] % (Auto) 6.2 (2-11) % Eos % (Auto) 0.8 (0-4) % Baso % (Auto) 1.0 (0-2) % Lymph # (Auto) 1.7 (1.2-4.9) X10*3/uL [place] # (Auto) 0.3 (0.1-1.2) X10*3/uL Eos # (Auto) 0.0 (0.0-0.4) X10*3/uL Baso # (Auto) 0.1 (0.0-0.2) X10*3/uL Abs Immat Gran (auto) 0.01 (0.00-0.03) X10*3/uL Absolute Neuts (auto) 2.8 (2.0-8.3) x10*3/uL Absolute Nucleated RBC 0.000 (0.0-0.012) X10*3/uL Nucleated RBC % (auto) 0.0 (0.0-0.2) /100WBC Sodium 141 (135-145) mmol/L Potassium 4.3 (3.3-5.1) mmol/L Chloride 106 (96-108) mmol/L Carbon Dioxide 29 (22-29) mmol/L Anion Gap 10 L (12-20) BUN 13 (9-16) mg/dL Creatinine 0.95 (0.5-1.4) mg/dL Estim Creat Clear Calc 112.9 Estimated GFR > 60 Random Glucose 92 (60-115) mg/dL Calcium 9.8 (8.4-10.2) mg/dL Total Bilirubin 0.5 (0.0-1.0) mg/dL AST 16 (5-37) U/L ALT 16 (0-40) U/L Alkaline Phosphatase 73 (39-117) U/L Total Protein 7.7 (6.5-8.0) g/dL Albumin 4.5 (3.5-5.0) g/dL Lipase 28 (8-78) U/L Urine Color Yellow Urine Appearance Clear Urine pH 6.0 (5.0-9.0) Ur Specific [place] >= 1.030 H (1.005-1.025) Urine Protein Negative (Neg-Trace) mg/dL Urine Glucose (UA) Negative (Negative) mg/dL Urine Ketones Negative (Negative) mg/dL Urine Blood Negative (Negative) Urine Nitrite Negative (Negative) Ur Leukocyte Esterase Negative (Negative) External Record Review External record reviewed: Outpatient record, Prior outpatient labs and Prior outpatient radiology Critical Care Time Critical Care Time Critical Care Time: Yes Total Critical Care Time: 30 Attestation: I personally attest to this time spent taking care of the patient. Discharge Plan Discharge Clinical Impression: Right-sided chest wall pain, Musculoskeletal pain Patient Disposition: Home, Self-Care Instructions: Musculoskeletal Pain (ED), Chest Wall Pain (ED) Additional Instructions: Keep all appointments as scheduled. Recommend [id number] Tylenol/ibuprofen as needed for pain control. Your workup was otherwise negative for any acute evidence of infection or electrolyte/kidney problems. Return to the ER for any worsening symptoms. Prescriptions: No Action cholecalciferol (vitamin D3) 25 mcg (1,000 unit) capsule 25 mcg PO DAILY 90 Days Qty: 90 1RF fluticasone propionate 50 mcg/actuation spray,suspension 1 spray intranasal BID Qty: 16 0RF Rx Instructions: administer into each nostril levocetirizine 5 mg tablet 5 mg PO DAILY PRN (Reason: allergy symptoms) Qty: 90 0RF Print Language: Swiss
[2023-09-30 14:56] VITALS: BP 130/72; PULSE 62; RESP 18; TEMP 36.7; O2SAT 98
== END 2023-09-30 14:58 | disposition home or self-care (01) ==
PROVIDERS: Emergency Provider Student in an Organized Health Care Education/Training Program
DX: R07.89 Other chest pain (principal); M79.18 Myalgia, other site; F17.210 Nicotine dependence, cigarettes, uncomplicated
CPT/HCPCS: 36415; 80053; 81003; 83690; 85025; 99283; 99284

== ENCOUNTER 2024-01-18 13:27 | Outpatient (AMB) | payer OTHER, SELFPAY ==
--- NOTE | 2024-01-18 13:40 | MHC.OFFVIS ---
Vital Signs 01/18/24 13:41 Height 5 ft 6 in Weight 189 lb 9.561 oz BMI 30.6 BP 114/78 Blood Pressure Location Lt brachial Position Sitting Pulse 57 Intake Visit Reasons: RUQ Pains, Fatty Liver Intake Note: Bennie presents in the office as a new patient for RUQ pains and Fatty liver. CC: He was diagnosed with fatty liver and his gall bladder was mentioned. He denies irregular bowel movements. He states that he does get GERD at night - choking when he was sleeping. He went to the [facility] ED. He states that it will happen in his sleep and he wakes up gasping for air. Room Designer Required: No Allergies Seasonal Allergies Allergy (Intermediate, Verified 01/18/24 13:44) sinus problems HPI Comments Details: 33 y.o M who was referred to our office for RUQ pain and fatty liver. Reports onset almost a year ago. Reports havign the pain as soon as he wakes up. Reports it as sharp comes and goes. Nausea and vomiting +. Stools are ok. No unintentional weight change. Does report its positional and gets better with laying down or laying on it. Went to [facility] and was given anti-secretory regimen for these sx. US Abd x 2 since 2021 shows steatosis. Former heavy etOH use. 6-12 drinks of whiskey over the weekend, stopped this since onset of pain. Does not smoke, or use other illicit substances. [facility] Medical History Left wrist pain Normocytic anemia Obese Hand numbness Abdominal pain Chest pain Left sided sciatica Hypovitaminosis D Dyslipidemia No known health problems Surgical History History of hand surgery Family History Father Hypertension Maternal Uncle Throat cancer Mother Diabetes Hypertension Rheumatoid arthritis Maternal Grandfather Diabetes Paternal Grandfather No problems noted. Maternal Uncle Colon cancer, Onset Age: 55 Social History Housing: Apartment Alcohol intake: current Alcohol intake frequency: a few times a month Alcohol type: wine and hard liquor Patient Tobacco Use Status: Current someday Tobacco user Tobacco use type: Cigarette e-Cigarette/Vaping Use: Never Used Second Hand Smoke Exposure: No service: No Current occupational status: employed Current occupation: hotel maintenance, rt hand Current occupational exposures/hazards: No Cognitive needs: No Hearing needs: No Vision needs: No Review of Systems Const All systems reviewed & are unremarkable except as noted in HPI and below Physical Exam Vital Signs: Last Vital Signs Pulse 57 01/18/24 13:41 BP 114/78 01/18/24 13:41 BMI result Body Mass Index 30.6 No apparent distress Nonicteric Abdomen soft, nondistended Alert and oriented x3, normal gait Quality Reporting (2019) Adult ([facility] 138/05/07/68) Smoking risk assessment performed?: Yes Patient Tobacco Use Status: Current someday Tobacco user Assessment & Plan Assessment & Plan (1) Colicky RUQ abdominal pain: Code(s): R10.11 - Right upper quadrant pain Category: Medical (2) Fatty infiltration of liver: Code(s): K76.0 - Fatty (change of) liver, not elsewhere classified Category: Medical Plan Patient referred to our office for steatosis seen on ultrasound. This is likely from metALD. Pt has already quit etOH. Fib 4 score of 0.6 Will check HIDA for ongoing intermittent RUQ pain. Also appears to have an MSK component to this pain, given exacerbation and relief in certain positions/activity. Was advised heat application. Avoid NSAIDs. Tylenol 2g/day is ok. Follow up if actionable findings on HIDA Orders: Orders NM hepatobiliary w pharm Today R10.11 - Right upper quadrant pain Coding Level of Care Code New Pt Level 4 (44070) Complex EM visit Add On G2211 Diagnoses Colicky RUQ abdominal pain R10.11 Fatty infiltration of liver K76.0
[2024-01-18 13:41] VITALS: BP 114/78; PULSE 57; BMI 30.6
== END 2024-01-18 15:27 | disposition home or self-care (01) ==
LOC: HO.HGI 13:39
PROVIDERS: Visit Provider Internal Medicine
DX: R10.11 Right upper quadrant pain (principal); K76.0 Fatty (change of) liver, not elsewhere classified
CPT/HCPCS: 99204; G2211

== ENCOUNTER → 2024-01-18 13:27 | Outpatient (BNVA) | payer OTHER, SELFPAY | PROVIDERS: Visit Provider Internal Medicine | DX: R10.11 Right upper quadrant pain (principal); K76.0 Fatty (change of) liver, not elsewhere classified | CPT/HCPCS: 99202 ==

== ENCOUNTER → 2024-02-08 07:37 | Outpatient (REF) | payer OTHER, SELFPAY ==
--- NOTE | ~2024-02-08 | NM_ITS ---
EXAMINATION: BILIARY TRACT IMAGING STUDY CLINICAL INFORMATION: Reason for exam: Right upper quadrant abdominal pain. TECHNIQUE: Serial gamma scintillation camera images were obtained over the abdomen for a total observation period of 90 minutes following the intravenous administration of 5 mCi Tc-99m mebrofenin. At around 60 minutes following radiotracer administration, a 30-minute infusion of 1.6 micrograms Sincalide was then begun with continued image acquisition for an additional 30 minutes. FINDINGS: There is normal radiotracer uptake and distribution throughout the hepatic parenchyma followed by expected excretion. The gallbladder is well-visualized by 12 minutes and biliary to bowel transit by 30 minutes into the imaging. Visually, there is good contraction response from the gallbladder as demonstrated by closer to complete clearance of radiotracer from the gallbladder in response to intravenously administered CCK. The calculated gallbladder ejection fraction is 92% (normal gallbladder ejection fraction is greater than 35%). NM/NM hepatobiliary w pharm IMPRESSION: There is no scintigraphic evidence for gallbladder dysfunction. Please note, clinically noted symptoms can be seen secondary to gallbladder hyperkinesia, a chronic malady that presents with biliary symptoms even in the absence of gallstones. [email or web address] Electronically signed by: Kristal Carrero MD 02/14/2024 12:56 PM CHEIKH
== END ==
LOC: HO.NUCMED 07:37
PROVIDERS: PCP Internal Medicine; Visit Provider Internal Medicine
DX: R10.11 Right upper quadrant pain (principal)
CPT/HCPCS: 78227; A9537; J2805

== ENCOUNTER 2024-02-09 12:52 | Outpatient (AMB) | payer OTHER, SELFPAY ==
--- NOTE | 2024-02-09 13:03 | MHC.PC.OV ---
Vital Signs 02/09/24 13:04 Height 5 ft 6 in Weight 192 lb BMI 31.0 BP 126/70 Blood Pressure Location Lt brachial Position Sitting Intake Visit Reasons: annual Intake Note: Patient here for an annual physical exam Preschool Aide Required: No Accompanied by: Self / Same As Patient Allergies Seasonal Allergies Allergy (Intermediate, Verified 02/09/24 13:35) sinus problems Medication List - Last Reconciled 02/09/24 by Natalya Fuentes MD No Known Home Meds Tobacco use date assessed: 02/09/24 Dental Screening Dental Screen Date: 02/09/24 Did you have a dental visit in the last 12 months?: No Did you have a dental problem in the last 6 months where you did not have access to dental care?: No Was dental information given to patient?: Patient has dentist HPI HPI Comments History of Present Illness Details The patient is a 34-year-old male presenting for his physical exam with concerns related to suspected gallbladder dysfunction. He reports a history of low vitamin D levels, which were identified previously, and he has been advised to take vitamin D supplements. He underwent hand surgery in the past, with no specific details of the condition leading to the surgery being provided during the visit. A family history reveals that his father has essential hypertension, while his mother has type II diabetes mellitus and rheumatoid arthritis. 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 Additionally, the patient indicates he is undergoing studies to assess the functioning of his gallbladder, as he experiences significant pain prompting this investigation. He previously weighed 230 pounds, but following medical advice, he successfully lost 38 pounds. His specialist has recommended a further weight loss of 20 pounds. The patient denies experiencing any respiratory symptoms, fever, or palpitations, and has not noticed any family history of colon cancer except for an uncle diagnosed in his fifties. No current treatments for gallbladder or liver function tests have been explicitly reported, though test results are expected. - Tetanus vaccination due for administration (last received in 2012). - Screening labs discussed: Cholesterol, blood glucose, renal and hepatic panels, vitamin D levels. [facility] Medical History Left wrist pain Normocytic anemia Obese Hand numbness Abdominal pain Chest pain Left sided sciatica Hypovitaminosis D Dyslipidemia No known health problems Surgical History History of hand surgery Family History Father Hypertension Maternal Uncle Throat cancer Mother Diabetes Hypertension Rheumatoid arthritis Maternal Grandfather Diabetes Paternal Grandfather No problems noted. Maternal Uncle Colon cancer, Onset Age: 55 Social History (Updated 02/09/24 @ 13:39 by Natalya Fuentes MD) Housing: Apartment Alcohol intake: current Alcohol intake frequency: a few times a month Alcohol type: wine and hard liquor Patient Tobacco Use Status: Former Tobacco user Tobacco use type: Cigarette e-Cigarette/Vaping Use: Never Used Second Hand Smoke Exposure: No service: No Current occupational status: employed Current occupation: hotel maintenance, rt hand Current occupational exposures/hazards: No Cognitive needs: No Hearing needs: No Vision needs: No Questionnaire Thrive Questionnaire Date Thrive assessed: 09/14/23 SHAKILA-7 AMB Questionnaire SHAKILA-7 Date SHAKILA - 7 assessed: 09/14/23 Source: Developed by Drs. Oscar Krishnan, Melany Canchloa, Howard Elizalde and colleagues, with an educational aj from [employer]. Review of Systems Const All systems reviewed & are unremarkable except as noted in HPI and below Card Denies chest pain at rest, Denies chest pain with activity, Denies edema, Denies irregular heart rhythm, Denies claudication, Denies dyspnea, Denies dyspnea on exertion, Denies orthopnea, Denies paroxysmal nocturnal dyspnea and Denies slow heart rate Resp Denies cough, Denies dyspnea and Denies dyspnea on exertion Neuro Denies lack of coordination Physical exam (Primary Care) Vital Signs: Last Vital Signs BP 126/70 02/09/24 13:04 BMI result Body Mass Index 31.0 BMI Assessment/Plan discussion: High BMI High, discussed plan: lifestyle, weight reduction, dietary and physical activity Tobacco/Smoking Status: Tobacco use Status Tobacco use date assessed 02/09/24 02/09/24 13:08 Patient Tobacco Use Status Former Tobacco user 02/09/24 13:39 Tobacco use type Cigarette 02/09/24 13:39 e-Cigarette/Vaping Use Never Used 02/09/24 13:39 Thrive Assessment: Date of Thrive Assessment Date Thrive assessed 09/14/23 02/09/24 13:08 HENMT Head: Yes normal to inspection, Yes normocephalic and Yes atraumatic Ears: external ears normal Eyes General: appearance normal, both eyes and all related structures Eyelids: Yes eyelids normal Conjunctivae: conjunctivae normal Neck Neck: Yes normal visual inspection and Yes supple Resp Effort & Inspection: normal respiratory effort Auscultation: clear to auscultation bilaterally Cardio Jugular venous distension: no JVD Rate: regular rate Rhythm: regular rhythm Heart sounds: S1 normal heart sound present and S2 normal heart sound present GI Inspection: Yes normal to inspection Palpation (GI): Soft to palpation and nontender Auscultation: normal bowel sounds Skin General skin exam: no rashes or lesions noted Neuro General: no focal motor deficits Extrem General: Yes full ROM Psych Appearance: grossly normal Office Procedures Flu Questionnaire Does the patient have a severe egg allergy?: No Does the patient have severe life threatening allergies?: No Does the patient have a fever or illness today?: No Has the patient ever had Guillain-Loa Syndrome?: No Has the patient ever had any past reaction to a flu shot?: No Immunizations Fluarix Triv 9964-1735 (PF) 45 mcg (15 mcg x 3)/0.5 mL IM syringe Performing Provider: Natalya Fuentes MD Performing Location: [facility] Administered by: TRACI Larry on 02/09/24 13:08 Dose Route Admin Location Dispensed Lot Number Expiration Date [facility] Dispatcher Service Chief 0.5 mL IM Right Deltoid 0.5 mL [id number] 09/12/24 52725-175-07 [place] [employer] VIS Given Date VIS Provided VIS Publication Date 02/09/24 Single Vaccine 24 Eligibility Eligibility Date Funding Source Not [facility] Eligible 02/09/24 Private Boostrix Tdap 2.5 Lf unit-8 mcg-5 Lf/0.5 mL intramuscular syringe Performing Provider: Natalya Fuentes MD Performing Location: [facility] Administered by: TRACI Larry on 02/09/24 13:50 Dose Route Admin Location Dispensed Lot Number Expiration Date NDC Dispatcher Service Chief 0.5 mL IM Left Deltoid 0.5 mL [id number] 04/06/26 36583-284-35 [place] [employer] VIS Given Date VIS Provided VIS Publication Date 02/09/24 Single Vaccine 20 Eligibility Eligibility Date Funding Source Not [facility] Eligible 02/09/24 Private Coding Level of Care Code Est Pt Level 3 (32482) Est Pt Prev Care 18-39y(69030) Diagnoses Physical exam Z00.00 Colicky RUQ abdominal pain R10.11 Chest pain, unspecified type R07.9 Chest pain type: unspecified Time Spent (min) 31 Assessment & Plan Assessment & Plan (1) Physical exam: Code(s): Z00.00 - Encounter for general adult medical examination without abnormal findings Category: Medical (2) Colicky RUQ abdominal pain: Code(s): R10.11 - Right upper quadrant pain Category: Medical (3) Chest pain: Code(s): R07.9 - Chest pain, unspecified Category: Medical Qualifiers: Chest pain type: unspecified Qualified Code(s): R07.9 - Chest pain, unspecified Plan - Suspected Gallbladder Dysfunction: Await pending diagnostic results of gallbladder functioning; continue weight management as advised by specialist. - Vitamin D Deficiency: Continue vitamin D supplementation. - Gastroesophageal Reflux Disease: If suspected reflux symptoms persist, consider gastroenterology consultation for further evaluation. - Routine Labs: Obtain baseline labs including lipid panel, glucose, renal and hepatic functions, and vitamin D levels. - Obesity: Encouragement for continued weight reduction, targeting a further 20 pounds loss as advised. - Preventative Care: Administer tetanus vaccine today; discuss flu vaccination. Patient was informed and verbally consented to the use of an ambient scribe for clinic note documentation during this visit. During our consultation, we addressed the patient's concerns related to potential gallbladder dysfunction, which had prompted prior specialist evaluation. I emphasized the importance of completing the planned diagnostic studies to determine specific treatment options. We also discussed the patient's successful weight management progress and the importance of achieving further weight reduction for potential symptom alleviation and overall health improvement. The patient provided consent for the tetanus vaccine, and we discussed the benefits of keeping vaccinations current for preventative health. Future lab work and the pending results of the gallbladder assessment will guide further management strategies. Orders: Orders Vitamin D 25-OH Total Today E55.9 - Vitamin D deficiency, unspecified Comprehensive [place]. Panel Fast Today Z00.00 - Encounter for general adult medical examination without abnormal findings Influenza [id number] Immunization Today Z23 - Encounter for immunization TDaP Immunization Today Z23 - Encounter for immunization Lipid Panel Today E78.5 - Hyperlipidemia, unspecified ECG 12 lead EKG Today R07.9 - Chest pain, unspecified Patient Instructions: - Complete the recommended lab tests. - Continue taking vitamin D supplements as prescribed. - Follow weight management plan to lose an additional 20 pounds as advised by your specialist. - Receive tetanus vaccination today. - Monitor for any persistent or worsening symptoms, and follow up with results of gallbladder function tests. - Consider influenza vaccination during the upcoming flu season. - Contact the clinic if any new symptoms develop or if existing symptoms worsen.
[2024-02-09 13:04] VITALS: BP 126/70; BMI 31.0
== END 2024-02-09 13:53 | disposition home or self-care (01) ==
LOC: HO.HMCH 12:52
PROVIDERS: PCP Internal Medicine; Visit Provider Internal Medicine
DX: Z00.00 Encounter for general adult medical examination without abnormal findings (principal); R10.11 Right upper quadrant pain; R07.9 Chest pain, unspecified

== ENCOUNTER → 2024-02-09 12:52 | Outpatient (BNVA) | payer OTHER, SELFPAY | PROVIDERS: PCP Internal Medicine; Visit Provider Internal Medicine | DX: Z00.00 Encounter for general adult medical examination without abnormal findings (principal); Z23 Encounter for immunization; R07.9 Chest pain, unspecified; R10.11 Right upper quadrant pain | CPT/HCPCS: 90471; 90472; 90656; 90715; 99212; 99395 ==

== ENCOUNTER 2024-02-18 10:31 | Outpatient (REF) | payer OTHER, SELFPAY ==
[2024-02-18 14:08] LABS: Influenza A PCR NEGATIVE (Negative); Influenza B PCR NEGATIVE (Negative); Resp Syncy Virus RNA Qual PCR NEGATIVE (Negative); SARS COV2 PCR INHOUSE NEGATIVE (Negative)
== END 2024-02-18 10:32 | disposition home or self-care (01) ==
LOC: HO.LAB 10:31
PROVIDERS: Physician Assistant; PCP Internal Medicine
DX: J22 Unspecified acute lower respiratory infection (principal)
CPT/HCPCS: 0241U; 99212

== ENCOUNTER 2024-02-18 10:31 | Outpatient (AMB) | payer OTHER, SELFPAY ==
--- NOTE | 2024-02-18 11:07 | AM.OFFWIN_ITS ---
Intake Vital Signs 02/18/24 11:09 Height 5 ft 6 in Weight 194 lb BMI 31.3 BP 122/78 Blood Pressure Location Rt brachial Position Sitting Pulse 78 Pulse Source Pulse Oximeter Temp 98.0 F Temp Source Oral Pulse Oximetry (%) 98 Oxygen Delivery Method Room Air Intake Visit Reasons: EP Cough, headache, watery eyes, runny nose Intake Note: Patient here for headache, congestion,cough, watery eyes and cough that started last Thursday. Patient Tobacco Use Status: Former Tobacco user Allergies Seasonal Allergies Allergy (Intermediate, Verified 02/18/24 11:11) sinus problems Do you need a note to return to daycare/school/sports/work: Yes HPI HPI Comments History of Present Illness Details History of Present Illness The patient is a 34-year-old male presenting with acute respiratory distress and symptoms suggestive of a viral infection. He reports illness onset six days ago, following exposure to an individual with pneumonia and Respiratory Syncytial Virus (RSV) infection. The patient exhibits symptoms including stuffy nose, headache, ocular discomfort, dry cough, chest and lung pain, and occasional shortness of breath upon exertion. He has self-medicated with cxwu-mte-nsklyto cold and flu medications, without symptom relief. The patient denies any history of asthma or Chronic Obstructive Pulmonary Disease (COPD). Additionally, the patient describes experiencing ear congestion. Physical Exam General: Cooperative, healthy appearing, comfortable and no acute distress Orientation/consciousness: Patient oriented x3 Limitations: No limitations Head: Normal to inspection Ears: Hearing grossly normal bilaterally, external ears normal and TM's normal bilaterally, erythematous Nose: Normal external nose present, Normal nares present and No nasal discharge present Face and sinus: Normal facial exam and sinuses tenderness on the left side Mouth: Normal oral and palatal mucosa present and moist mucous membranes Throat: Yes tonsils normal, Yes uvula midline. Posterior oropharynx erythema Eyes: Appearance normal, both eyes and all related structures Neck: Normal visual inspection Respiratory: Clear to auscultation bilaterally. Normal respiratory effort, able to speak in complete sentences, no respiratory distress, not tachypneic, no tripod positioning and no use of accessory muscles Cardiovascular: Regular rate and rhythm. Normal S1 and S2 Skin: No rashes or lesions noted Neuro: Patient oriented x3 Extremities: Normal to inspection and Yes no clubbing, cyanosis or edema PENDING SALE TO [facility] Medical History Left wrist pain Normocytic anemia Obese Hand numbness Abdominal pain Chest pain Left sided sciatica Hypovitaminosis D Dyslipidemia No known health problems Surgical History History of hand surgery Family History Father Hypertension Maternal Uncle Throat cancer Mother Diabetes Hypertension Rheumatoid arthritis Maternal Grandfather Diabetes Paternal Grandfather No problems noted. Maternal Uncle Colon cancer, Onset Age: 55 Social History (Updated 02/09/24 @ 13:39 by Natalya Fuentes MD) Housing: Apartment Alcohol intake: current Alcohol intake frequency: a few times a month Alcohol type: wine and hard liquor Patient Tobacco Use Status: Former Tobacco user Tobacco use type: Cigarette e-Cigarette/Vaping Use: Never Used Second Hand Smoke Exposure: No service: No Current occupational status: employed Current occupation: hotel maintenance, rt hand Current occupational exposures/hazards: No Cognitive needs: No Hearing needs: No Vision needs: No Review of Systems Const All systems reviewed & are unremarkable except as noted in HPI and below Physical Exam Vital Signs: Last Vital Signs Temp 98.0 F 02/18/24 11:09 Pulse 78 02/18/24 11:09 BP 122/78 02/18/24 11:09 Pulse Ox 98 02/18/24 11:09 Oxygen Delivery Method Room Air 02/18/24 11:09 BMI result Body Mass Index 31.3 Assessment & Plan Assessment & Plan (1) Lower respiratory infection (e.g., bronchitis, pneumonia, pneumonitis, pulmonitis): Code(s): J22 - Unspecified acute lower respiratory infection Plan: Respiratory Syncytial Virus RSV Infection: - Tested for Influenza, COVID-19, and RSV to confirm viral etiology. - Prescribe an albuterol inhaler for symptomatic relief of respiratory distress, instructing on the proper use of two puffs every four to six hours as needed. - Prescribe Tessalon Perles for cough management and instruct patient to avoid concurrent piwc-xaf-xmgdipt antitussive medications containing guaifenesin. - Advise the patient to rest and remain home from work until symptoms yakov. Provide documentation for work absence until the following Thursday. Patient was informed and verbally consented to the use of an ambient scribe for clinic note documentation during this visit Orders: Orders SARS-CoV2/FLU/RSV Today J06.9 - Acute upper respiratory infection, unspecified Medications: New albuterol sulfate 90 mcg/actuation (Ventolin HFA) 2 puffs inhalation Q4-6H PRN 8.5 grams 0RF shortness of breath or wheezing benzonatate 200 mg PO TID PRN 14 caps 0RF cough Coding Level of Care Code Est Pt Level 4 (27070) Diagnoses Lower respiratory infection (e.g., bronchitis, pneumonia, pneumonitis, pulmonitis) J22
[2024-02-18 11:09] VITALS: BP 122/78; PULSE 78; TEMP 36.7; O2SAT 98; BMI 31.3
== END 2024-02-18 11:30 | disposition home or self-care (01) ==
PROVIDERS: PCP Internal Medicine; Visit Provider Physician Assistant
DX: J22 Unspecified acute lower respiratory infection (principal)

== ENCOUNTER 2024-02-29 09:45 | Outpatient (AMB) | payer OTHER, SELFPAY ==
--- NOTE | 2024-02-29 09:45 | MHC.OFFVIS ---
Intake Visit Reasons: Diseases of the GB Intake Note: Patient referred by Dr. Randlal for diseases of the gallbladder. Pain started 1.5yr. Patient c/o; on and off pain on RUQ. 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 He was referred by GI for a 1-1/2 year plus history of right upper quadrant pain radiating around to his back. He noticed this happens frequently after few hours of eating meals in particular greasy, fried, fatty foods. He has had several ER visits for this. Recent HIDA scan is consistent with biliary dyskinesia. He has had so many episodes of this and wishes to pursue surgery if it will improve his symptoms. Patient was never been jaundiced before. He otherwise has regular bowel habits. He does strenuous activities as his place of employment. Chart was reviewed and patient evaluated [facility] Medical History Left wrist pain Normocytic anemia Obese Hand numbness Abdominal pain Chest pain Left sided sciatica Hypovitaminosis D Dyslipidemia No known health problems Surgical History History of hand surgery Family History Father Hypertension Maternal Uncle Throat cancer Mother Diabetes Hypertension Rheumatoid arthritis Maternal Grandfather Diabetes Paternal Grandfather No problems noted. Maternal Uncle Colon cancer, Onset Age: 55 Social History (Updated 02/09/24 @ 13:39 by Natalya Fuentes MD) Housing: Apartment Alcohol intake: current Alcohol intake frequency: a few times a month Alcohol type: wine and hard liquor Patient Tobacco Use Status: Former Tobacco user Tobacco use type: Cigarette e-Cigarette/Vaping Use: Never Used Second Hand Smoke Exposure: No service: No Current occupational status: employed Current occupation: hotel maintenance, rt hand Current occupational exposures/hazards: No Cognitive needs: No Hearing needs: No Vision needs: No Physical Exam Eyes Other: Anicteric Chest Other: Chest breath sounds bilaterally, HS 1 in 2 GI Other: Abdomen is soft, benign. Quality Reporting (2020) Adult (CMS 138/2/22/69) Smoking risk assessment performed?: Yes Patient Tobacco Use Status: Former Tobacco user Assessment & Plan Assessment & Plan (1) Biliary dyskinesia: Code(s): K82.8 - Other specified diseases of gallbladder Category: Surgical (2) Abdominal pain: Code(s): R10.9 - Unspecified abdominal pain Category: Surgical Plan Extensive discussion was had with the patient regarding the risks, benefits, and alternatives laparoscopic possible open cholecystectomy which included but not limited to bleeding, infection, recurrence of symptoms, numbness, pain, scarring, bowel or bile duct injury or leak and the patient wishes to proceed with the procedure. All questions answered. Arrangements were made for this. Coding Level of Care Code New Pt Level 5 (74018) Diagnoses Biliary dyskinesia K82.8 Right upper quadrant abdominal pain R10.9
== END 2024-02-29 10:01 | disposition home or self-care (01) ==
PROVIDERS: PCP Internal Medicine; Referring Provider Internal Medicine; Visit Provider Surgery
DX: K82.8 Other specified diseases of gallbladder (principal); R10.9 Unspecified abdominal pain
CPT/HCPCS: 99204

== ENCOUNTER → 2024-02-29 09:45 | Outpatient (BNVA) | payer OTHER, SELFPAY | PROVIDERS: PCP Internal Medicine; Referring Provider Internal Medicine; Visit Provider Surgery | DX: K82.8 Other specified diseases of gallbladder (principal); R10.9 Unspecified abdominal pain | CPT/HCPCS: 99202 ==

== ENCOUNTER → 2024-03-07 09:46 | Outpatient (REF) | payer OTHER, SELFPAY ==
--- NOTE | 2024-03-07 09:57 | ECG_ITS ---
Test Reason : CHEST ORI Blood Pressure : / mmHG Vent. Rate : 059 BPM Atrial Rate : 059 BPM P-R Int : 146 ms QRS Dur : 106 ms QT Int : 416 ms P-R-T Axes : 048 030 010 degrees QTc Int : 411 ms Sinus bradycardia with sinus arrhythmia Otherwise normal ECG When compared to the previous EKG of No significant changes seen Referred By: Natalya Fuentes Electronically Signed By:Lucio Piedra
[2024-03-07 11:00] LABS: Alanine Aminotransferase 25 U/L (0-40); Albumin Level 4.2 g/dL (3.5-5.0); Alkaline Phosphatase 70 U/L (39-117); Anion Gap 10 (12-20); Aspartate Amino Transferase 21 U/L (5-37); Bilirubin Total 0.4 mg/dL (0.0-1.0); Blood Urea Nitrogen 15 mg/dL (9-16); Calcium 8.9 mg/dL (8.4-10.2); Carbon Dioxide 29 mmol/L (22-29); Chloride 107 mmol/L (96-108); Cholesterol 191 mg/dL (<200); Estimated Glomerular Filt Rate > 60; Glucose Fasting 98 mg/dL (60-99); HDL Cholesterol 51 mg/dL (>40); LDL Cholesterol Calculated 130 mg/dL (<100); Potassium 3.7 mmol/L (3.3-5.1); Sodium 142 mmol/L (135-145); Total Protein 7.1 g/dL (6.5-8.0); Triglycerides 51 mg/dL (<150)
[2024-03-07 11:17] LABS: Vitamin D 25-OH Total 34.2 ng/mL (>30)
== END ==
LOC: HO.CARD 09:46
PROVIDERS: PCP Internal Medicine; Visit Provider Internal Medicine
DX: R07.9 Chest pain, unspecified (principal); E55.9 Vitamin D deficiency, unspecified; Z00.00 Encounter for general adult medical examination without abnormal findings
CPT/HCPCS: 36415; 80053; 80061; 82306; 93005

== ENCOUNTER → 2024-03-07 09:57 | Outpatient (BNV) | payer OTHER, SELFPAY | PROVIDERS: PCP Internal Medicine; Visit Provider Internal Medicine Cardiovascular Disease | DX: R07.9 Chest pain, unspecified (principal) | CPT/HCPCS: 93010 ==

== ENCOUNTER 2024-04-01 10:28 | Day surgery (SDC) | payer OTHER, SELFPAY ==
--- NOTE | 2024-03-31 12:05 | HO.ANESPROP2 ---
Documented by User: Shelby Christensen NP 03/31/24 12:06 HPI - Anesthesia Eval Consult details Narrative: 34yo M for Cholecystectomy Laparoscopic Medically optimized per PCP [facility] Active Problems Active Problems: All Active Problems Lower respiratory infection (e.g., bronchitis, pneumonia, pneumonitis, pulmonitis) (Acute) URI (upper respiratory infection) (Acute) Biliary dyskinesia (Acute) Colicky RUQ abdominal pain (Acute) Chest pain (Acute) Eustachian tube dysfunction (Acute) Seasonal allergies (Acute) Right-sided low back pain with sciatica (Acute) Physical exam (Acute) Nondisplaced fracture of right great toe (Acute) Injury of right great toe (Acute) Fatty infiltration of liver (Acute) Right upper quadrant abdominal pain (Acute) Cholecystitis, acute (Acute) Left wrist pain (Acute) Normocytic anemia (Acute) Dysuria (Acute) Obese (Acute) Hand numbness (Acute) Right sided sciatica (Acute) Abdominal pain (Acute) Chest pain (Acute) Left sided sciatica (Acute) Hypovitaminosis D (Acute) Dyslipidemia (Acute) Past Medical History Medical History (Updated 02/18/24 @ 11:33 by Jina Nicholas PA-C) Left wrist pain Normocytic anemia Obese Hand numbness Chest pain Left sided sciatica Hypovitaminosis D Dyslipidemia No known health problems Family History Family History Father Hypertension Maternal Uncle Throat cancer Mother Diabetes Hypertension Rheumatoid arthritis Maternal Grandfather Diabetes Paternal Grandfather No problems noted. Maternal Uncle Colon cancer, Onset Age: 55 Surgical History Surgical History (Updated 04/01/24 @ 13:13 by Andria Bonner RN) Abdominal pain History of hand surgery Social History Social History (Updated 02/09/24 @ 13:39 by Natalya Fuentes MD) Housing: Apartment Are you a primary child care centre manager to a significant other at home: No Do you presently have visiting nurse or other home services: No Alcohol intake: current Alcohol intake frequency: holidays/special occasions only Alcohol type: wine and hard liquor Patient Tobacco Use Status: Never used Tobacco Tobacco use type: Cigarette e-Cigarette/Vaping Use: Never Used Second Hand Smoke Exposure: No Use of substances other than those prescribed or required for medical reasons: No Have you been hit, kicked, punched, or otherwise hurt by someone within the past year? If so, by whom?: No Are you DNR?: No Advance Directives: No Advance Directives Information Provided: No Advance Directives on File: No Recently lost weight without trying: No How much weight loss: Not applicable Eating poorly because of decreased appetite: No Nutrition screen score: 0 Nutrition Risks: No Nutritional Risk Poor oral hygiene: No service: No Current occupational status: employed Current occupation: [employer] maintenance, rt hand Current occupational exposures/hazards: No Cognitive needs: No Hearing needs: No Vision needs: No Meds Allergies Allergy/AdvReac Type Severity Reaction Status Date / Time Seasonal Allergies Allergy Intermediate sinus Verified 04/01/24 13:13 problems Home Medications ?Medication ?Instructions ?Recorded ?Confirmed ?Last Taken ?Type No Known Home Meds 04/01/24 04/01/24 Unknown History Exam Pertinent Lab Results Pertinent Lab Results: Laboratory Tests 09/30/23 03/07/24 11:00 09:56 WBC 5.0 Hgb 14.3 Hct 42.5 Plt Count 215 Sodium 142 Potassium 3.7 Chloride 107 Carbon Dioxide 29 BUN 15 Creatinine 1.04 Narrative Narrative: EKG 02/2024 Vent. Rate : 059 BPM Atrial Rate : 059 BPM P-R Int : 146 ms QRS Dur : 106 ms QT Int : 416 ms P-R-T Axes : 048 030 010 degrees QTc Int : 411 ms Sinus bradycardia with sinus arrhythmia Otherwise normal ECG When compared to the previous EKG of No significant changes seen Assessment and Plan Assessment Anesthesia Assessment: Chart Reviewed Documented by User: Eliza Clinton MD 04/01/24 15:20 [facility] Past Medical History Medical History (Updated 02/18/24 @ 11:33 by Jina Nicholas PA-C) Left wrist pain Normocytic anemia Obese Hand numbness Chest pain Left sided sciatica Hypovitaminosis D Dyslipidemia No known health problems Family History Family History Father Hypertension Maternal Uncle Throat cancer Mother Diabetes Hypertension Rheumatoid arthritis Maternal Grandfather Diabetes Paternal Grandfather No problems noted. Maternal Uncle Colon cancer, Onset Age: 55 Family history of problems with anesthesia: No Surgical History Surgical History (Updated 04/01/24 @ 13:13 by Andria Bonner RN) Abdominal pain History of hand surgery History of Problems with Anesthesia: No Social History Social History (Updated 02/09/24 @ 13:39 by Natalya Fuentes MD) Housing: Apartment Are you a primary child care centre manager to a significant other at home: No Do you presently have visiting nurse or other home services: No Alcohol intake: current Alcohol intake frequency: holidays/special occasions only Alcohol type: wine and hard liquor Patient Tobacco Use Status: Never used Tobacco Tobacco use type: Cigarette e-Cigarette/Vaping Use: Never Used Second Hand Smoke Exposure: No Use of substances other than those prescribed or required for medical reasons: No Have you been hit, kicked, punched, or otherwise hurt by someone within the past year? If so, by whom?: No Are you DNR?: No Advance Directives: No Advance Directives Information Provided: No Advance Directives on File: No Recently lost weight without trying: No How much weight loss: Not applicable Eating poorly because of decreased appetite: No Nutrition screen score: 0 Nutrition Risks: No Nutritional Risk Poor oral hygiene: No service: No Current occupational status: employed Current occupation: hotel maintenance, rt hand Current occupational exposures/hazards: No Cognitive needs: No Hearing needs: No Vision needs: No Meds Allergies Allergy/AdvReac Type Severity Reaction Status Date / Time Seasonal Allergies Allergy Intermediate sinus Verified 04/01/24 13:13 problems Home Medications ?Medication ?Instructions ?Recorded ?Confirmed ?Last Taken ?Type No Known Home Meds 04/01/24 04/01/24 Unknown History Exam Airway Mallampati Class: II TM Dist: >3cm Neck ROM: Full Heart: rrr Lungs: cta Assessment and Plan Assessment Anesthesia Assessment: Anesthesia Plan Discussed Final Anesthetic Review Family History of Problems with Anesthesia: No History of Problems with Anesthesia: No NPO: Yes ASA Class: II Final Preanesthetic Review: No Changes in Pt Med Stat, Meds/Allgs Chart Reviewed and Consent Obtained/Reviewed Patient Risk: Low Procedure Risk: Low Anesthetic Plan Anesthetic Plan: GA Disposition: Standard PACU
--- NOTE | 2024-03-31 12:51 | MHC.SHP ---
Pre-Procedural Eval Section A - 24 Hr Update-Section A only Date of Service: 04/01/24 The patient is an INPATIENT: No Changes since office visit: No Cold of Flu in the past 2 weeks, No New Medical Problems, No Changes in Medication and No Patient answered all questions Section B - Complete if H&P > 30 days Chief Complaint: Other specified diseases of gallbladder,abd pain Allergies: Allergies Allergy/AdvReac Type Severity Reaction Status Date / Time Seasonal Allergies Allergy Intermediate sinus Verified 02/29/24 09:50 problems Review of Systems Sugical H&P ROS: Negative: Constitution, Cardiovascular, Respiratory, Neurological, Psychiatric, Hem-Onc, Allergic/Immunologic, Gastrointestinal, Genitourinary, Musculoskeletal, Integumentary, Endocrine and Eyes/Ears/Nose/Throat Exam Surgical H&P Exam: Normal: HEENT, Normal: Heart, Normal: Lungs, Normal: Extremities, Normal: Abdomen, Normal: Skin and Normal: Neurological Plan I have reviewed the history and physical and performed a pertinent physical examination on my patient. No changes have occurred unless specified. Time Spent With Patient Time: Total time managing care of this patient today ____ minutes.
[2024-04-01] VITALS (8 sets, daily range): BP systolic 120–133; BP diastolic 64–80; PULSE 57–78; RESP 16; TEMP 36.2–37.1; O2SAT 97–100
[2024-04-01] MEDS: Lactated Ringers 1,000 ML 100 ML IVCONT (13:31)
--- NOTE | 2024-04-01 15:42 | MHC.SHP ---
Pre-Procedural Eval Section A - 24 Hr Update-Section A only Date of Service: 04/01/24 The patient is an INPATIENT: No Changes since office visit: Yes Cold of Flu in the past 2 weeks, Yes New Medical Problems, Yes Changes in Medication and Yes Patient answered all questions Section B - Complete if H&P > 30 days Chief Complaint: Other specified diseases of gallbladder,abd pain Allergies: Allergies Allergy/AdvReac Type Severity Reaction Status Date / Time Seasonal Allergies Allergy Intermediate sinus Verified 04/01/24 13:13 problems Plan I have reviewed the history and physical and performed a pertinent physical examination on my patient. No changes have occurred unless specified. Time Spent With Patient Time: Total time managing care of this patient today ____ minutes.
--- NOTE | 2024-04-01 16:49 | P.OP_ITS ---
Operative Note Operative Note Date of Service: 04/01/24 Narrative: Preoperative diagnosis: [] Symptomatic gallbladder Postop diagnosis: [] The same Procedure [] laparoscopic cholecystectomy Surgeon: [] Angel Freight Representative: [] Leanne Type of Anesthesia: [] General Indication for surgery: [] Gallbladder with omental adhesions to it. Moderately intrahepatic gallbladder. Findings: [] Patient brought to the operating room, placed on operative table supine position, after an adequate level of general anesthesia was induced, the patient's abdomen was prepped and draped in usual sterile fashion. Using a supraumbilical curvilinear incision, Nichols technique was used to insufflate abdominal cavity to 15 mm of CO2. Upper midline and right subcostal ports were placed under direct laparoscopic view, and the patient placed in reverse Trendelenburg position, and tilted to the left. Findings were as noted above. Gallbladder was grasped using laparoscopic graspers and retracted superiorly and laterally. Soft omental adhesions were swept off the gallbladder and the hilum was approached. Common bile duct was identified and preserved throughout the procedure. Cystic artery and cystic duct were each identified, circumferentially skeletonized, traced directly into the gallbladder, and critical view obtained. Each was clipped proximally x2, distally x1, and transected. The gallbladder which was moderately intrahepatic was then cauterized from the gallbladder fossa using Bovie. Specimen placed in an Endo- Catch bag, and retrieved through the umbilical port. Abdominal cavity was copiously irrigated and secured hemostasis. All ports removed under direct laparoscopic view. Wounds were closed in the following manner; umbilical wound is fascia reapproximated using interrupted 0 Vicryl sutures. Skin wounds were closed using subcuticular 4-0 Vicryl sutures followed by Steri-Strips and sterile dressings. Wounds were infiltrated 0.5% Marcaine at completion. Sponge, needle, and instrument counts reported correct. Patient tolerated the procedure well and emerged from anesthesia stable condition. EBL minimal
[2024-04-01] MEDS: fentaNYL citrate/PF 100 MCG/2 ML VIAL 50 MCG IVPUSH (17:13)
== END 2024-04-01 17:42 | disposition home or self-care (01) ==
PROVIDERS: PCP Internal Medicine; Visit Provider Surgery
PROC: 0FT44ZZ Resection of Gallbladder, Percutaneous Endoscopic Approach (ICD-10-PCS; CPT 47562; principal; 2024-04-01 14:50)
DX: K81.1 Chronic cholecystitis (principal); K66.0 Peritoneal adhesions (postprocedural) (postinfection); Q44.1 Other congenital malformations of gallbladder; D64.9 Anemia, unspecified; E55.9 Vitamin D deficiency, unspecified; E66.9 Obesity, unspecified; Z87.891 Personal history of nicotine dependence
CPT/HCPCS: 47562; 88304; J0131; J0690; J1100; J1885; J2003; J2250; J2405; J2704; J2795; J3010

== ENCOUNTER → 2024-04-01 10:28 | Outpatient (BNV) | payer OTHER, SELFPAY | PROVIDERS: PCP Internal Medicine; Visit Provider Surgery | DX: K81.1 Chronic cholecystitis (principal) | CPT/HCPCS: 47562 ==

== ENCOUNTER 2024-04-11 09:50 | Outpatient (AMB) | payer OTHER, SELFPAY ==
--- NOTE | 2024-04-11 09:53 | A.OFFVIS_ITS ---
Intake Visit Reasons: S/P lap leticia Intake Note: Patient here s/p laparoscopic cholecystectomy. Reports incision healing well. Patient c/o: pain at surgical site. Pain becomes bothersome when taking deep breaths. No longer taking pain meds. Surgery: 04-01-2024 [facility] Work[facility] Required: No Accompanied by: Self / Same As Patient Allergies Seasonal Allergies Allergy (Intermediate, Verified 04/11/24 09:53) sinus problems HPI Comments Details: Patient presents with his mother. Aside from incisional discomfort which is improving he is doing well. Starting a diet. Having regular bowel habits. No other wound issues or complaints. Slowly increasing his activity level. Pathology is benign [facility] Medical History (Updated 02/18/24 @ 11:33 by Jina Nicholas PA-C) Left wrist pain Normocytic anemia Obese Hand numbness Chest pain Left sided sciatica Hypovitaminosis D Dyslipidemia No known health problems Surgical History (Updated 04/11/24 @ 10:16 by Gibran Ortiz MD) Hx laparoscopic cholecystectomy (04/01/24) Abdominal pain History of hand surgery Family History Father Hypertension Maternal Uncle Throat cancer Mother Diabetes Hypertension Rheumatoid arthritis Maternal Grandfather Diabetes Paternal Grandfather No problems noted. Maternal Uncle Colon cancer, Onset Age: 55 Social History (Updated 02/09/24 @ 13:39 by Natalya Fuentes MD) Housing: Apartment Are you a primary healthcare project manager to a significant other at home: No Do you presently have visiting nurse or other home services: No Alcohol intake: current Alcohol intake frequency: holidays/special occasions only Alcohol type: wine and hard liquor Patient Tobacco Use Status: Never used Tobacco Tobacco use type: Cigarette e-Cigarette/Vaping Use: Never Used Second Hand Smoke Exposure: No service: No Current occupational status: employed Current occupation: hotel maintenance, rt hand Current occupational exposures/hazards: No Cognitive needs: No Hearing needs: No Vision needs: No Physical Exam Eyes Other: Anicteric GI Other: Abdomen is soft. All wounds clean dry and intact healing well Quality Reporting (2019) Adult ([facility] [address] 138/2//69) Smoking risk assessment performed?: Yes Patient Tobacco Use Status: Never used Tobacco Assessment & Plan Assessment & Plan (1) Status post laparoscopic cholecystectomy: Code(s): Z90.49 - Acquired absence of other specified parts of digestive tract Category: Surgical Plan Patient was been given local instructions, renewal of analgesics, no for 3 weeks off work and then 2 weeks light duty and otherwise follow-up p.r.n.. All questions answered Medications: New hydrocodone-acetaminophen 5-325 mg Partial Fill upon patient request. 1 tab PO Q4-6H PRN 30 tabs 0RF pain Coding Level of Care Code Global (48689) Diagnoses Status post laparoscopic cholecystectomy Z90.49
== END 2024-04-11 10:16 | disposition home or self-care (01) ==
PROVIDERS: PCP Internal Medicine; Visit Provider Surgery
DX: Z90.49 Acquired absence of other specified parts of digestive tract (principal)
CPT/HCPCS: 99024

== ENCOUNTER → 2024-04-11 09:50 | Outpatient (BNVA) | payer OTHER, SELFPAY | PROVIDERS: PCP Internal Medicine; Visit Provider Surgery | DX: Z09 Encounter for follow-up examination after completed treatment for conditions other than malignant neoplasm (principal); Z90.49 Acquired absence of other specified parts of digestive tract | CPT/HCPCS: 99212 ==

== ENCOUNTER 2024-04-26 12:57 | Outpatient (AMB) | payer OTHER, SELFPAY ==
--- NOTE | 2024-04-26 13:00 | MHC.OFFVIS ---
Intake Visit Reasons: pain in belly button Intake Note: Patient here s/p laparoscopic cholecystectomy. Patient c/o: pain on RUQ that spreads to back. C/o bruising on Rt abd scarline that appeared 4-5days ago. 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 ?recently was doing well. He is tolerating a diet. Having regular bowel habits. He has noticed that occasionally in the middle of the night he has a lower back problems and then goes to the bathroom has a bowel movement and the symptoms are improved. Patient was increasing his activity level. He is to bring start work within the next week. I discussed with the patient that this back pain with bowel movement is unrelated to his gallbladder procedure [facility] Medical History (Updated 02/18/24 @ 11:33 by Jina Nicholas PA-C) Left wrist pain Normocytic anemia Obese Hand numbness Chest pain Left sided sciatica Hypovitaminosis D Dyslipidemia No known health problems Surgical History (Updated 04/11/24 @ 10:16 by Gibran Ortiz MD) Hx laparoscopic cholecystectomy (04/01/24) Abdominal pain History of hand surgery Family History Father Hypertension Maternal Uncle Throat cancer Mother Diabetes Hypertension Rheumatoid arthritis Maternal Grandfather Diabetes Paternal Grandfather No problems noted. Maternal Uncle Colon cancer, Onset Age: 55 Social History (Updated 02/09/24 @ 13:39 by Natalya Fuentes MD) Housing: Apartment Are you a primary hospice patient care secretary to a significant other at home: No Do you presently have visiting nurse or other home services: No Alcohol intake: current Alcohol intake frequency: holidays/special occasions only Alcohol type: wine and hard liquor Patient Tobacco Use Status: Never used Tobacco Tobacco use type: Cigarette e-Cigarette/Vaping Use: Never Used Second Hand Smoke Exposure: No service: No Current occupational status: employed Current occupation: hotel maintenance, rt hand Current occupational exposures/hazards: No Cognitive needs: No Hearing needs: No Vision needs: No Physical Exam Eyes Other: Anicteric GI Other: Abdomen is soft. All wounds clean dry and intact healing very well. Patient has some mild ecchymosis along the medial right subcostal port but no evidence of any infection. Quality Reporting (2019) Adult ([facility] 138/05/07/68) Smoking risk assessment performed?: Yes Patient Tobacco Use Status: Never used Tobacco Assessment & Plan Assessment & Plan (1) Status post laparoscopic cholecystectomy: Code(s): Z90.49 - Acquired absence of other specified parts of digestive tract Category: Medical Plan At present, no acute surgical issues. Patient will be treated conservatively. Should is GI issues persist, patient should contact me or his gambling supervisor. He will otherwise follow-up p.r.n.. No provided for restorative work. Coding Level of Care Code Global (17419) Diagnoses Status post laparoscopic cholecystectomy Z90.49
== END 2024-04-26 13:37 | disposition home or self-care (01) ==
PROVIDERS: PCP Internal Medicine; Visit Provider Surgery
DX: Z90.49 Acquired absence of other specified parts of digestive tract (principal)
CPT/HCPCS: 99024

== ENCOUNTER → 2024-04-26 12:57 | Outpatient (BNVA) | payer OTHER, SELFPAY | PROVIDERS: PCP Internal Medicine; Visit Provider Surgery | DX: Z09 Encounter for follow-up examination after completed treatment for conditions other than malignant neoplasm (principal); Z90.49 Acquired absence of other specified parts of digestive tract | CPT/HCPCS: 99212 ==

== ENCOUNTER 2024-06-01 09:35 | Outpatient (AMB) | payer OTHER, SELFPAY ==
[2024-06-01 10:19] VITALS: BP 114/80; PULSE 104; TEMP 37.6; O2SAT 97; BMI 31.3
--- NOTE | 2024-06-01 10:19 | AM.OFFWIN_ITS ---
Intake Vital Signs 06/01/24 10:19 Height 5 ft 6 in Weight 194 lb 2 oz BMI 31.3 BP 114/80 Blood Pressure Location Rt brachial Position Sitting Pulse 104 H Pulse Source Pulse Oximeter Temp 99.7 F Temp Source Oral Pulse Oximetry (%) 97 Oxygen Delivery Method Room Air Intake Visit Reasons: EP fever, cough, body aches- Flu B + , work note Intake Note: Pt presents to the office today for c/o fever, cough, body aches since yesterday. Pt states he took an at home test that came back positive for flu B. Patient Tobacco Use Status: Never used Tobacco Allergies Seasonal Allergies Allergy (Intermediate, Verified 06/01/24 10:19) sinus problems HPI EP fever, cough, body aches- Flu B + , work note HPI Details This is a 34-year-old male patient who presents to the walk-in clinic with a 2 day history of fever, chills, headache, body ache, cough with yellow sputum. He states that he tried some [id number] cold/flu medication without relief. He just purchased a COVID/flu test [id number], and this shows he is positive for flu B. Denies any shortness of breath. [facility] Medical History Left wrist pain Normocytic anemia Obese Hand numbness Chest pain Left sided sciatica Hypovitaminosis D Dyslipidemia No known health problems Surgical History Hx laparoscopic cholecystectomy (04/01/24) Abdominal pain History of hand surgery Family History Father Hypertension Maternal Uncle Throat cancer Mother Diabetes Hypertension Rheumatoid arthritis Maternal Grandfather Diabetes Paternal Grandfather No problems noted. Maternal Uncle Colon cancer, Onset Age: 55 Social History Housing: Apartment Are you a primary daycare director to a significant other at home: No Do you presently have visiting nurse or other home services: No Alcohol intake: current Alcohol intake frequency: holidays/special occasions only Alcohol type: wine and hard liquor Patient Tobacco Use Status: Never used Tobacco Tobacco use type: Cigarette e-Cigarette/Vaping Use: Never Used Second Hand Smoke Exposure: No service: No Current occupational status: employed Current occupation: hotel maintenance, rt hand Current occupational exposures/hazards: No Cognitive needs: No Hearing needs: No Vision needs: No Review of Systems Const All systems reviewed & are unremarkable except as noted in HPI and below Physical Exam Vital Signs: Last Vital Signs Temp 99.7 F 06/01/24 10:19 Pulse 104 H 06/01/24 10:19 BP 114/80 06/01/24 10:19 Pulse Ox 97 06/01/24 10:19 Oxygen Delivery Method Room Air 06/01/24 10:19 BMI result Body Mass Index 31.3 Const General: cooperative and ill appearing acutely Nutritional Appearance: average body habitus Limitations: no limitations HEENT Head: Yes normal to inspection and Yes normocephalic Ears: hearing grossly normal bilaterally, external ears normal and TM's normal bilaterally General nose exam: Normal external nose present Face and sinus: Yes normal facial exam Mouth: Normal oral and palatal mucosa present Throat: Yes posterior oropharynx normal Neck Neck: Yes no lymphadenopathy Resp Effort & Inspection: normal respiratory effort and Actively coughing Quality: dry Auscultation: clear to auscultation bilaterally Cardio Rate: regular rate Rhythm: regular rhythm Heart sounds: S1 normal heart sound present and S2 normal heart sound present Skin General skin exam: no rashes or lesions noted Extrem General: Yes capillary refill normal and Yes no clubbing, cyanosis or edema Psych Appearance: grossly normal Mental Status: mental status grossly normal Speech and movement: Normal speech and movement present Assessment & Plan Assessment & Plan (1) Influenza due to influenza virus, type B: Code(s): J10.1 - Influenza due to other identified influenza virus with other respiratory manifestations Plan: Prescribed Tamiflu for + flu B. We reviewed indications, use, possible side effects of this medication. Reviewed use of [id number] cold/flu medication, increase hydration/rest/healthy food intake as tolerated. He can return to the clinic as needed. All questions were answered and patient verbalizes understanding and agrees to plan. Work note provided. Medications: New oseltamivir 75 mg PO BID 5 days 10 caps 0RF J10.1 - Influenza due to other identified influenza virus with other respiratory manifestations Coding Level of Care Code Est Pt Level 4 (74336) Diagnoses Influenza due to influenza virus, type B J10.1
--- OUTSIDE RECORDS SUMMARY | 2024-06-01 10:37 | XMS_ITS | Clinical Summary ---
Author Organization [facility] Address [address] [place] [address] Care Team Providers Care Child Welfare Counselor Name Role Phone Natalya Fuentes MD Primary Care Provider [phone] Medical History Medical History Date Comments HLD (hyperlipidemia) DX:HLD (hyp erlipidemia) Social History Tobacco Use Types Packs/Day Years Used Date Smoking Tobacco: Never Smokeless Tobacco: Never Alcohol Use Standard Drinks/Week Comments Yes 0 (1 standard drink = 0.6 oz pur e alcohol) Sex and Gender Information Value Date Recorded Sex Assigned at Not on file Legal Sex Male 4:56 PM EST Gender Identity Not on file Sexual Orientation Not on file Obstetrics History Last Filed Vital Signs Vital Sign Reading Time Taken Comments Blood Pressure 124/70 12/15/2022 8:46 AM EDT Pulse 60 12/15/2022 8:46 AM EDT Temperature - - Respiratory Rate - - Oxygen Saturation - - Inhaled Oxygen Concentration - - Weight 88.5 kg (195 lb) 03/20/2023 2:21 PM EST Height 167.6 cm (5' 6 ) 03/20/2023 2:21 PM EST Body Mass Index 31.47 03/20/2023 2:21 PM EST Plan of Treatment Upcoming Encounters Date Type Department Care Team (Late st Contact Info) Description 07/05/2024 9:45 AM EDT Office Visit Orthopedic Surgery - [place] [address] [address] Jolie Cabrera MD 175 [facility] [address] [place] [address] Health Maintenance Due Date Last Done Comments DTaP,Tdap,and Td Vaccines (1 - Tdap) 2009 Hepatitis B Vaccines (1 of 3 - 19+ 3-dose series) 2009 Depression Screening 02/12/2022 HIV Screening 02/12/2022 Hepatitis C Screening 02/12/2022 Social Influencers of Health Screening 02/12/2022 COVID-19 Vaccine (1 - 2023-2 5 season) 2023 Influenza Vaccine (#1) 2023 HIB Vaccines Aged Out No longer eligi ble based on patient's age to complete this topic HPV Vaccines Aged Out No longer eligi ble based on patient's age to complete this topic Hepatitis A Vaccines Aged Out No long er eligible based on patient's age to complete this topic IPV Vaccines Aged Out No longer eligi ble based on patient's age to complete this topic MMR Vaccines Aged Out No longer eligi ble based on patient's age to complete this topic Meningococcal ACWY Vaccine Aged Out N o longer eligible based on patient's age to complete this topic Meningococcal B Vacine Aged Out No lo nger eligible based on patient's age to complete this topic Pneumococcal Vaccine: Pediat rics (0 to 5 Years) and At-Risk Patients (6 to 64 Years) Aged Out No longer eligible b ased on patient's age to complete this topic RSV Immunization Patients Un edgar 20 months Aged Out No longer eligible b ased on patient's age to complete this topic Varicella Vaccines Aged Out No longer eligible based on patient's age to complete this topic Care Teams Child Welfare Counselor Relationship Specialty Start Date End Date Natalya Fuentes MD [address] [place] [address] , [address] [facility] D/B/A: [facility] BHASKAR Palacio PCP - General Internal Medicine 06/03/21
== END 2024-06-01 10:49 | disposition home or self-care (01) ==
PROVIDERS: PCP Internal Medicine; Visit Provider Nurse Practitioner Family
DX: J10.1 Influenza due to other identified influenza virus with other respiratory manifestations (principal)

== ENCOUNTER → 2024-06-01 09:35 | Outpatient (BNVA) | payer OTHER, SELFPAY | PROVIDERS: PCP Internal Medicine | DX: J10.1 Influenza due to other identified influenza virus with other respiratory manifestations (principal) | CPT/HCPCS: 99212 ==

== ENCOUNTER 2024-07-04 11:23 | Outpatient (AMB) | payer OTHER, SELFPAY ==
[2024-07-04 11:25] VITALS: BP 110/76; PULSE 86; O2SAT 98; BMI 31.0
--- NOTE | 2024-07-04 11:25 | MHC.PC.OV ---
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 Accompanied by: Self / Same As Patient Allergies Seasonal Allergies Allergy (Intermediate, Verified 07/04/24 11:32) sinus problems Medication List - Last Reconciled 07/04/24 by Irina Chaney PA-C No Known Home Meds Tobacco use date assessed: 07/04/24 Dental Screening Dental Screen Date: 07/04/24 Did you have a dental visit in the last 12 months?: Yes Did you have a dental problem in the last 6 months where you did not have access to dental care?: No Was dental information given to patient?: Patient has dentist HPI Ear and sore throat HPI Details 34-year-old male with past medical history dyslipidemia, anemia last seen 01/2024 coming in for acute problem. Presenting with back, shoulder, and leg pain, post-operative and biliary issues. Chronic lower back pain since 2018, initially coinciding with previous employment involving heavy lifting. Pain is moderate, worsens with physical activity, and radiates down the leg, indicating potential sciatic nerve involvement. Shoulder pain attributed to historical injury, exacerbated by specific sleeping posture and causes joint popping. Persistent pain at the site of gallbladder removal, thought to be potentially muscular. Scar tissue tenderness at the umbilical incision site from previous surgery. [facility] Medical History Left wrist pain Normocytic anemia Obese Hand numbness Chest pain Left sided sciatica Hypovitaminosis D Dyslipidemia No known health problems Surgical History Hx laparoscopic cholecystectomy (04/01/24) Abdominal pain History of hand surgery Family History Father Hypertension Maternal Uncle Throat cancer Mother Diabetes Hypertension Rheumatoid arthritis Maternal Grandfather Diabetes Paternal Grandfather No problems noted. Maternal Uncle Colon cancer, Onset Age: 55 Social History Housing: Apartment Are you a primary personal care home administrator to a significant other at home: No Do you presently have visiting nurse or other home services: No Alcohol intake: current Alcohol intake frequency: holidays/special occasions only Alcohol type: wine and hard liquor Patient Tobacco Use Status: Never used Tobacco Tobacco use type: Cigarette e-Cigarette/Vaping Use: Never Used Second Hand Smoke Exposure: No service: No Current occupational status: employed Current occupation: hotel maintenance, rt hand Current occupational exposures/hazards: No Cognitive needs: No Hearing needs: No Vision needs: No Questionnaire PHQ-9 Over the last 2 weeks, how often have you been bothered by any of the following problems? 1. Little interest or pleasure in doing things: not at all 2. Feeling down, depressed, or hopeless: not at all 3. Trouble falling or staying asleep, or sleeping too much: not at all 4. Feeling tired or having little energy: not at all 5. Poor appetite or overeating: not at all 6. Feeling bad about yourself - or that you are a failure or have let yourself or your family down: not at all 7. Trouble concentrating on things, such as reading the newspaper or watching television: not at all 8. Moving or speaking so slowly that other people could have noticed. Or the opposite - being so fidgety or restless that you have been moving around a lot more than usual: not at all 9. Thoughts that you would be better off or of hurting yourself in some way: not at all Total score: 0 Depression Screening Interpretation: Negative Depression Screening Done: Yes 19910 - PHQ-9 Billing: Yes Source: Developed by Drs. Oscar Krishnan, Melany Canchola, Howard Elizalde and colleagues, with an educational aj from [employer]. Thrive Questionnaire Date Thrive assessed: 07/04/24 I am a: Patient What is your living situation today?: I have a steady place to live Within the past 12 months, did the food you bought not last and you didn't have the money to get more?: Never true Within the past 12 months, did you worry whether your food would run out before you got money to buy more?: Never true Do you have trouble paying for medicines?: No Do you have trouble getting transportation to medical appointments?: No Do you have trouble paying your heating and electricity bill?: No Do you have trouble taking care of your child, family member or friend?: No Do you have trouble with day-to-day activities such as bathing, preparing meals, shopping, managing finances, etc.?: No Are you currently unemployed and looking for a job?: No Are you interested in more education?: No Please select the resources that you would like help with: None Currently or been in a relationship where the following occur: No concerns reported THRIVE Score: 0 AUDIT C Alcohol Use Questionnaire (AUDIT-C) 1. How often do you have a drink containing alcohol?: Monthly or less 2. How many drinks containing alcohol do you have on a typical day when you are drinking?: 1 or 2 3. How often do you have six or more drinks on one occasion?: Never Total Score: 1 SHAKILA-7 AMB Questionnaire SHAKILA-7 Date SHAKILA - 7 assessed: 07/04/24 Feeling nervous, anxious, or on edge: 0 = Not at all Not being able to stop or control worryin = Not at all Worrying too much about different things: 0 = Not at all Trouble relaxin = Not at all Being so restless that it is hard to sit still: 0 = Not at all Becoming easily annoyed or irritable: 0 = Not at all Feeling afraid as if something awful might happen: 0 = Not at all Total SHAKILA-7 score (0-4 normal; 5-9 mild; 10-14 moderate; 15-21 severe): 0 Source: Developed by Drs. Oscar Krishnan, Melany Canchola, Howard Elizalde and colleagues, with an educational aj from [employer]. Review of Systems Const Denies body aches, Denies chills, Denies fever(s), Denies headache(s) and Denies poor appetite Eyes Reports no additional complaints ENT Denies dizziness and Denies headache(s) Card Denies chest pain, Denies lightheadedness and Denies dyspnea Resp Denies dyspnea GI Denies abdominal pain Details: No incontinence Musc Details: Right shoulder pain Reports abnormal gait and Reports back pain Skin/Breast Reports system reviewed and no additional complaints, except as documented Neuro Reports abnormal gait, Denies dizziness and Denies headache(s) Psych Reports no additional complaints Physical exam (Primary Care) Vital Signs: Last Vital Signs Pulse 86 07/04/24 11:25 BP 110/76 07/04/24 11:25 Pulse Ox 98 07/04/24 11:25 Oxygen Delivery Method Room Air 07/04/24 11:25 BMI result Body Mass Index 31.0 Tobacco/Smoking Status: Tobacco use Status Tobacco use date assessed 07/04/24 07/04/24 11:31 Patient Tobacco Use Status Never used Tobacco 07/04/24 11:31 Tobacco use type Cigarette 07/04/24 11:31 e-Cigarette/Vaping Use Never Used 07/04/24 11:31 PHQ-9: PHQ-9 Score PHQ-9: Total score 0 07/04/24 11:31 Depression Screening Interpretation: Negative Thrive Assessment: Date of Thrive Assessment Date Thrive assessed 07/04/24 07/04/24 11:31 Currently or been in a relationship where the following occur: No concerns reported Const General: cooperative, healthy appearing, comfortable and no acute distress Orientation/consciousness: patient oriented x3 HENMT Head: Yes normocephalic Ears: hearing grossly normal bilaterally General nose exam: Normal external nose present Eyes General: appearance normal, both eyes and all related structures Conjunctivae: conjunctivae normal Neck Neck: Yes full ROM and Yes no lymphadenopathy Resp Effort & Inspection: normal respiratory effort Auscultation: clear to auscultation bilaterally, no crackles, no rales, no rhonchi and no wheezes Cardio Rate: regular rate Rhythm: regular rhythm Back/Spine/Pelvis Other: Tenderness to palpation over lumbar spine and right paraspinal muscles. Positive right straight leg raise test. Negative left straight leg raise test Skin General skin exam: no rashes or lesions noted Neuro General: patient oriented x3 Gait exam (Neuro): Normal gait present Extrem Other: Tenderness to palpation over entirety of right shoulder pain with external rotation, flexion and extension of right shoulder. General: Yes normal to inspection, Yes full ROM and No edema Psych Affect: normal affect Attitude: cooperative Insight: Good insight present (Psych) Judgement: Good judgement present (Psych) Coding Level of Care Code Est Pt Level 4 (89841) Diagnoses Right-sided low back pain with sciatica M54.41 Right shoulder pain M25.511 Status post laparoscopic cholecystectomy Z90.49 Family history of colorectal cancer Z80.0 Additional Codes PHQ-9 - 53579 - PHQ-9 Billing: Yes ([id number]) Assessment & Plan Assessment & Plan (1) Right-sided low back pain with sciatica: Code(s): M54.41 - Lumbago with sciatica, right side Category: Medical Plan: Patient having worsening low back pain with radiation down the right leg. Plan to obtain lumbar x-ray and referral placed for physical therapy. Patient may use Tylenol, ibuprofen, heating pad as needed for pain. Also send prescription for cyclobenzaprine for nighttime pain and advised patient can not drive on this medication. Prescription for lidocaine patch also send (2) Right shoulder pain: Code(s): M25.511 - Pain in right shoulder Category: Medical Plan: Patient having right shoulder pain for the last several years. May use similar pain management strategies as above and referral was placed to physical therapy. Plan to obtain x-ray as well. Can consider referral to Orthopedics (3) Status post laparoscopic cholecystectomy: Code(s): Z90.49 - Acquired absence of other specified parts of digestive tract Category: Surgical Plan: Patient having continued right upper quadrant pain. Per General surgery last no advised to follow up with GI. (4) Family history of colorectal cancer: Code(s): Z80.0 - Family history of malignant neoplasm of digestive organs Category: Medical Plan: Patient having history of colorectal cancer in his uncle we will recently from this diagnosis. Advised patient to follow up with GI to discuss possible screening. Plan I plan to conduct x-rays of the shoulder and back to identify any joint or bony changes. Ibuprofen and Tylenol are prescribed for pain relief, and a muscle relaxer will be used at night. Physical therapy is initiated to assist with musculoskeletal rehabilitation and strengthening. The patient should use lidocaine patches and heating pads to alleviate pain. I have advised consultation with a gastrointestinal specialist for comprehensive management of fatty liver and to evaluate the necessity of colorectal cancer screening due to family history. A temporary work hiatus is provided to aid recovery and symptom management, along with emphasizing lifestyle and diet modifications. This note was constructed using voice recognition software. While every effort has been made to ensure accuracy and hand silvering supervisor, still areas may have been included sometimes these areas may affect the content or meeting of the given symptoms. Total time spent caring for the patient today was twenty minutes. This includes time spent before the visit reviewing the chart, time spent during the visit, and time spent after the visit and documentation. Patient was informed and verbally consented to the use of an ambient scribe for clinic note documentation during this visit. Orders: Orders XR lumbar spine 2-3V Today M54.41 - Lumbago with sciatica, right side PT Evaluation and Treatment Today M25.511 - Pain in right shoulder, M54.41 - Lumbago with sciatica, right side XR shoulder RT min 2V Today M25.511 - Pain in right shoulder Medications: New cyclobenzaprine 5 mg PO BEDTIME 20 tabs 0RF lidocaine 5% leave on most painful area for up to 12 hrs 1 patch topical DAILY 30 ea 0RF Discontinued oseltamivir Discontinued Reason: Patient no longer taking 75 mg PO BID 5 days 10 caps 0RF J10.1 - Influenza due to other identified influenza virus with other respiratory manifestations
--- OUTSIDE RECORDS SUMMARY | 2024-07-04 11:25 | XMS_ITS | Clinical Summary ---
Author Organization [facility] Address [address] [place] [address] Care Team Providers Care Global Analytics Head Name Role Phone Natalya Fuentes MD Primary Care Provider [phone] Medical History Medical History Date Comments HLD [...] AM EDT Office Visit Orthopedic Surgery - [place] [address] [address] Jolie Cabrera MD 175 [facility] [address] [place] [address] Health Maintenance Due Date Last Done Comments DTaP,Tdap,and Td Vaccines (1 - Tdap) 2009 Hepatitis B Vaccines (1 of 3 - 19+ 3-dose series) 2009 Depression Screening 02/12/2022 HIV Screening 02/12/2022 Hepatitis C Screening 02/12/2022 Social Influencers of Health Screening 02/12/2022 COVID-19 Vaccine (1 - 2023-2 5 season) 2023 Influenza Vaccine (Season Ended) 2024 HIB Vaccines Aged Out No longer eligi [...] age to complete this topic Meningococcal B Vaccine Aged Out No l onger eligible based on patient's age to complete [...] on patient's age to complete this topic Insurance MEDICAID - [place] Care Teams Global Analytics Head Relationship Specialty Start Date End Date Natalya Fuentes MD [address] [place] [address] , [address] [facility] D/B/A: [facility] BHASKAR Palacio PCP - General Internal Medicine 06/03/21
== END 2024-07-04 12:02 | disposition home or self-care (01) ==
LOC: HO.HMCH 11:24
PROVIDERS: PCP Internal Medicine
DX: M54.41 Lumbago with sciatica, right side (principal); M25.511 Pain in right shoulder; Z90.49 Acquired absence of other specified parts of digestive tract; Z80.0 Family history of malignant neoplasm of digestive organs

== ENCOUNTER → 2024-07-04 11:23 | Outpatient (BNVA) | payer OTHER, SELFPAY | PROVIDERS: PCP Internal Medicine | DX: M54.41 Lumbago with sciatica, right side (principal); M25.511 Pain in right shoulder; Z90.49 Acquired absence of other specified parts of digestive tract; Z80.0 Family history of malignant neoplasm of digestive organs | CPT/HCPCS: 96127; 99212 ==

== ENCOUNTER 2024-07-28 11:12 | Outpatient (REF) | payer OTHER, SELFPAY ==
--- NOTE | ~2024-07-28 | XR_ITS ---
EXAMINATION: XR SHOULDER, RIGHT CLINICAL INFORMATION: M25.511 - Pain in right shoulder COMPARISON: None available. TECHNIQUE: AP external rotation, Grashey, scapular Y, and axillary views of the right shoulder. FINDINGS: Normal bone mineralization. No fracture, dislocation, or suspicious bone lesion. Normal alignment. The glenohumeral joint is normal. The AC joint is normal. There is a type II acromion. No undersurface spurring. The subacromial space is preserved. Remainder of the soft tissue and bony structures appear normal. XR/XR shoulder RT min 2V IMPRESSION: Normal right shoulder. Electronically signed by: Nikita Navarrete MD 07/28/2024 11:34 AM EDT
--- NOTE | ~2024-07-28 | XR_ITS ---
EXAMINATION: XR LUMBAR SPINE 2-3 VIEWS HISTORY: M54.41 - Lumbago with sciatica, right side COMPARISON: There are no prior studies for comparison. FINDINGS: AP, lateral, and coned down views of the lumbar spine are submitted. Osseous mineralization is normal. Five nonrib-bearing lumbar vertebral bodies are identified, maintaining normal height and alignment without evidence of fracture or spondylolisthesis. The intervertebral disc spaces are preserved. The posterior elements are intact. The visualized paraspinal soft tissues are unremarkable. XR/XR lumbar spine 2-3V IMPRESSION: Unremarkable examination of the lumbar spine. Electronically signed by: Oscar Marroquin MD 07/28/2024 11:37 AM EDT
--- OUTSIDE RECORDS SUMMARY | 2024-07-28 12:27 | XMS_ITS | Clinical Summary ---
Author Organization [address] [place] [address] [place] [phone] Phone Care Team Providers Care Pharmacy Picking Technician Name Role Phone Natalya Fuentes MD Primary Care Provider [phone] Allergies No known active allergies Medications No known medications Active Problems Problem Noted Date Diagnosed Date Left wrist pain 07/11/2024 Scapholunate ligament injury with no instability 08/19/2022 Encounters Date Type Department Care Team Description 07/11/2024 2:45 PM EDT Office Visit Orthopedic Surgery [address] [place] [address] Jolie Cabrera MD Follow-up exam (Primary Dx); Left wrist pain from Last 3 Months Surgical History Surgery Date Site/Laterality Comments WRIST SURGERY 12/25/2022 Left scope Medical History Medical History Date Comments HLD [...] - Inhaled Oxygen Concentration - - Weight 87.1 kg (192 lb) 07/11/2024 2:34 PM EDT Height 167.6 cm (5' 6 ) 07/11/2024 2:34 PM EDT Body Mass Index 30.99 07/11/2024 2:34 PM EDT Plan of Treatment Health Maintenance Due Date Last Done Comments Hepatitis B Vaccines (1 of 3 - 19+ 3-dose series) 2009 Depression Screening 02/12/2022 HIV Screening 02/12/2022 Hepatitis C Screening 02/12/2022 Social Influencers of Health Screening 02/12/2022 COVID-19 Vaccine (3 - 2023-2 5 season) 2023 08/21/2020, 07/31/2020 DTaP,Tdap,and Td Vaccines (4 - Td or Tdap) 02/08/2034 02/09/2024, 08/27/2012, 08/27/2012 Influenza Vaccine Completed 02/09/2024, 01/14/2019, 04/20/2018 HIB Vaccines Aged Out No longer eligi [...] age to complete this topic Pneumococcal Vaccine: Pediatrics (0 to 5 Years) and At-Risk Patients (6 to 64 Years) Aged Out No longer eligible b ased on patient's age to complete this topic RSV Immunization Patients Under 20 months Aged Out No longer eligible b ased on patient's age to complete this topic Varicella Vaccines Aged Out No longer eligible based on patient's age to complete this topic Procedures Procedure Name Priority Date/Time Associated Diagnosis Comments XR WRIST 3+ VIEWS LEFT Routine 07/11/2024 2:50 PM EDT Follow-up exam from Last 3 Months Results * XR Wrist 3+ Views Left (07/11/2024 2:50 PM EDT) Anatomical Region Laterality Modality Upper Extremities, Wrist Left Compute d Radiography Narrative 07/11/2024 10:22 PM EDT AP, lateral, oblique of the left wrist was obtained on 07/11/2024. ??There are no obvious fractures, lytic lesions, or unusual ??masses. ??On very close inspection along the radial styloid just at the tip there is 1 small area that looks like there is a few millimeters of calcification. ??All the joint spaces are well-maintained and carpal alignment appears maintained. Jolie Cabrera MD IMG XR PROCEDURES Final Resul t from Last 3 Months Insurance MEDICAID - [place] Care Teams Pharmacy Picking Technician Relationship Specialty Start Date End Date Natalya Fuentes MD [address] [place] [address] , [address] [facility] Physician Associ D/B/A: [facility] [place], [place] PCP - General Internal Medicine 06/03/21
== END 2024-07-28 11:13 | disposition home or self-care (01) ==
LOC: HO.XRAY 11:12
PROVIDERS: PCP Internal Medicine
DX: M54.41 Lumbago with sciatica, right side (principal); M25.511 Pain in right shoulder
CPT/HCPCS: 72100; 73030

== ENCOUNTER → 2024-07-28 11:15 | Outpatient (BNV) | payer OTHER, SELFPAY | PROVIDERS: PCP Internal Medicine; Visit Provider Radiology Diagnostic Radiology | DX: M54.41 Lumbago with sciatica, right side (principal); M25.511 Pain in right shoulder | CPT/HCPCS: 72100; 73030 ==

== ENCOUNTER 2024-09-12 09:07 | Outpatient (REF) | payer OTHER, SELFPAY ==
--- OUTSIDE RECORDS SUMMARY | 2024-09-12 09:27 | XMS_ITS | Clinical Summary ---
Author Organization [address] [place] [address] [place] [phone] Phone Care Team Providers Care Breakdown Man Name Role Phone Natalya Fuentes MD Primary Care Provider [phone] Allergies No known active allergies Medications No known medications Active Problems Problem Noted Date Diagnosed Date Left wrist pain 07/11/2024 Scapholunate ligament injury with no instability 08/19/2022 Encounters Date Type Department Care Team Description 07/11/2024 2:45 PM EDT Office Visit Orthopedic Surgery [address] [place] [address] Jolie Cabrera MD Follow-up exam [...] the left wrist was obtained on 07/11/2024. There are no obvious fractures, lytic lesions, or unusual masses. On very close inspection along the radial styloid just at the tip there is 1 small area that looks like there is a few millimeters of calcification. All the joint spaces are well-maintained and carpal alignment appears maintained. Jolie Cabrera MD IMG XR PROCEDURES Final Resul t from Last 3 Months Insurance MEDICAID - [place] Care Teams Breakdown Man Relationship Specialty Start Date End Date Natalya Fuentes MD [address] [place] [address] , [address] [facility]ician Associ D/B/A: [facility] [place], [place] PCP - General Internal Medicine 06/03/21
[2024-09-12 10:50] LABS: Alanine Aminotransferase 29 U/L (0-40); Albumin Level 4.5 g/dL (3.5-5.0); Alkaline Phosphatase 74 U/L (39-117); Anion Gap 10 (12-20); Aspartate Amino Transferase 25 U/L (5-37); Bilirubin Total 0.3 mg/dL (0.0-1.0); Blood Urea Nitrogen 12 mg/dL (9-16); Calcium 8.9 mg/dL (8.4-10.2); Carbon Dioxide 28 mmol/L (22-29); Chloride 108 mmol/L (96-108); Estimated Glomerular Filt Rate > 60; Glucose Fasting 97 mg/dL (60-99); Potassium 3.9 mmol/L (3.3-5.1); Sodium 142 mmol/L (135-145)
[2024-09-12 10:53] LABS: Vitamin D 25-OH Total 29.6 ng/mL (>30)
== END 2024-09-12 09:08 | disposition home or self-care (01) ==
LOC: HO.LAB 09:07
PROVIDERS: PCP Internal Medicine; Visit Provider Internal Medicine
DX: R07.9 Chest pain, unspecified (principal); E55.9 Vitamin D deficiency, unspecified
CPT/HCPCS: 36415; 80053; 82306

== ENCOUNTER 2024-10-12 11:30 | Outpatient (AMB) | payer OTHER, SELFPAY ==
--- NOTE | 2024-10-12 11:39 | A.OFFPC_ITS ---
Vital Signs 10/12/24 11:41 Height 5 ft 6 in Weight 192 lb 6 oz BMI 31.0 BP 126/62 Blood Pressure Location Lt brachial Position Sitting Pulse 73 Pulse Source Pulse Oximeter Temp 97.8 F Temp Source Temporal Artery Scan Pulse Oximetry (%) 98 Oxygen Delivery Method Room Air Intake Visit Reasons: f/u back pain Java Programmer Required: No Accompanied by: Self / Same As Patient Allergies Seasonal Allergies Allergy (Intermediate, Verified 10/12/24 11:58) sinus problems Medication List - Last Reconciled 10/12/24 by Irina Chaney PA-C cyclobenzaprine 5 mg PO BEDTIME lidocaine 5% 1 patch topical DAILY Tobacco use date assessed: 10/12/24 Dental Screening Dental Screen Date: 10/12/24 Did you have a dental visit in the last 12 months?: Yes Did you have a dental problem in the last 6 months where you did not have access to dental care?: No Was dental information given to patient?: Patient has dentist HPI f/u back pain HPI Details 34-year-old male with past medical histo ry dyslipidemia, anemia last seen 01/2024 coming in for follow up on acute problem. The patient describes worsening shoulder pain with radiation to the elbow and wrist, and numbness in two fingers upon waking, which resolves later. The pain is exacerbated by heavy lifting at work and is described as a burning sensation. The patient has not yet tried physical therapy for the shoulder, and a referral to orthopedics is being considered. Previous x-rays were normal, but there is a suspicion of rotator cuff involvement, which may require an MRI if physical therapy is unsuccessful. The patient reports intermittent back pain that improves when not sitting on a wallet, suggesting a mechanical cause. The pain is not currently severe. [facility] Medical History Left wrist pain Normocytic anemia Obese Hand numbness Chest pain Left sided sciatica Hypovitaminosis D Dyslipidemia No known health problems Surgical History Hx laparoscopic cholecystectomy (04/01/24) Abdominal pain History of hand surgery Family History Father Hypertension Maternal Uncle Throat cancer Mother Diabetes Hypertension Rheumatoid arthritis Maternal Grandfather Diabetes Paternal Grandfather No problems noted. Maternal Uncle Colon cancer, Onset Age: 55 Social History Housing: Apartment Are you a primary account executive healthcare to a significant other at home: No Do you presently have visiting nurse or other home services: No Alcohol intake: current Alcohol intake frequency: holidays/special occasions only Alcohol type: wine and hard liquor Patient Tobacco Use Status: Never used Tobacco Tobacco use type: Cigarette e-Cigarette/Vaping Use: Never Used Second Hand Smoke Exposure: No service: No Current occupational status: employed Current occupation: hotel maintenance, rt hand Current occupational exposures/hazards: No Cognitive needs: No Hearing needs: No Vision needs: No Questionnaire PHQ-9 Over the last 2 weeks, how often have you been bothered by any of the following problems? 1. Little interest or pleasure in doing things: not at all 2. Feeling down, depressed, or hopeless: not at all 3. Trouble falling or staying asleep, or sleeping too much: not at all 4. Feeling tired or having little energy: several days 5. Poor appetite or overeating: not at all 6. Feeling bad about yourself - or that you are a failure or have let yourself or your family down: not at all 7. Trouble concentrating on things, such as reading the newspaper or watching television: not at all 8. Moving or speaking so slowly that other people could have noticed. Or the opposite - being so fidgety or restless that you have been moving around a lot more than usual: not at all 9. Thoughts that you would be better off or of hurting yourself in some way: not at all Total score: 1 Source: Developed by Drs. Oscar Krishnan, Melany Canchola, Howard Elizalde and colleagues, with an educational aj from [employer]. Thrive Questionnaire Date Thrive assessed: 07/04/24 I am a: Patient What is your living situation today?: I have a steady place to live Within the past 12 months, did the food you bought not last and you didn't have the money to get more?: Sometimes True Within the past 12 months, did you worry whether your food would run out before you got money to buy more?: Sometimes True Do you have trouble paying for medicines?: No Do you have trouble getting transportation to medical appointments?: No Do you have trouble paying your heating and electricity bill?: Yes Do you have trouble taking care of your child, family member or friend?: No Do you have trouble with day-to-day activities such as bathing, preparing meals, shopping, managing finances, etc.?: No Are you currently unemployed and looking for a job?: No Are you interested in more education?: No Please select the resources that you would like help with: Food and Utilities Currently or been in a relationship where the following occur: No concerns reported THRIVE Score: 3 AUDIT C Alcohol Use Questionnaire (AUDIT-C) 1. How often do you have a drink containing alcohol?: Never Total Score: 0 SHAKILA-7 AMB Questionnaire SHAKILA-7 Date SHAKILA - 7 assessed: 07/04/24 Feeling nervous, anxious, or on edge: 1 = Several days Not being able to stop or control worryin = Not at all Worrying too much about different things: 0 = Not at all Trouble relaxin = Not at all Being so restless that it is hard to sit still: 0 = Not at all Becoming easily annoyed or irritable: 0 = Not at all Feeling afraid as if something awful might happen: 0 = Not at all Total SHAKILA-7 score (0-4 normal; 5-9 mild; 10-14 moderate; 15-21 severe): 1 Source: Developed by Drs. Oscar Krishnan, Melany Canchola, Howard Elizalde and colleagues, with an educational aj from [employer]. Review of Systems Const Denies body aches, Denies chills, Denies fever(s), Denies headache(s) and Denies poor appetite Eyes Reports no additional complaints ENT Denies dizziness and Denies headache(s) Card Denies chest pain and Denies dyspnea Resp Denies dyspnea Musc Reports no additional complaints, Reports as per HPI and Denies abnormal gait Neuro Denies abnormal gait, Denies dizziness and Denies headache(s) Psych Reports no additional complaints Physical exam (Primary Care) Vital Signs: Last Vital Signs Temp 97.8 F 10/12/24 11:41 Pulse 73 10/12/24 11:41 BP 126/62 07/30/25 11:41 Pulse Ox 98 10/12/24 11:41 Oxygen Delivery Method Room Air 10/12/24 11:41 BMI result Body Mass Index 31.0 Tobacco/Smoking Status: Tobacco use Status Tobacco use date assessed 10/12/24 10/12/24 11:46 Patient Tobacco Use Status Never used Tobacco 10/12/24 11:46 Tobacco use type Cigarette 10/12/24 11:46 e-Cigarette/Vaping Use Never Used 10/12/24 11:46 PHQ-9: PHQ-9 Score PHQ-9: Total score 1 10/12/24 11:46 Thrive Assessment: Date of Thrive Assessment Date Thrive assessed 07/04/24 10/12/24 11:46 Currently or been in a relationship where the following occur: No concerns reported Const General: cooperative, healthy appearing, comfortable and no acute distress Orientation/consciousness: patient oriented x3 HENMT Head: Yes normocephalic Ears: hearing grossly normal bilaterally General nose exam: Normal external nose present Neck Neck: Yes full ROM and Yes no lymphadenopathy Resp Effort & Inspection: normal respiratory effort Cardio Rate: regular rate Neuro General: patient oriented x3 Gait exam (Neuro): Normal gait present Extrem Other: tenderness to palpation of the right shoulder and limited mobility with internal rotation, flexion and extension. Intact strength, sensation and pulses in RUE General: Yes normal to inspection, Yes full ROM and No edema Psych Affect: normal affect Attitude: cooperative Insight: Good insight present (Psych) Judgement: Good judgement present (Psych) Coding Level of Care Code Est Pt Level 3 (33072) Diagnoses Right shoulder pain M25.511 Right-sided low back pain with sciatica M54.41 Assessment & Plan Assessment & Plan (1) Right shoulder pain: Code(s): M25.511 - Pain in right shoulder Category: Medical Plan: The management plan for the shoulder pain involves starting physical therapy to address muscular issues and considering a referral to orthopedics for further evaluation. If physical therapy is not effective, an MRI may be necessary to evaluate for rotator cuff pathology. The patient should continue using lidocaine patches and may use muscle relaxers as needed for pain relief. (2) Right-sided low back pain with sciatica: Code(s): M54.41 - Lumbago with sciatica, right side Category: Medical Plan: XR negative he will continue with lifestyle modification and tylenol and ibuprofen prn. For back pain, the patient is advised to avoid sitting on a wallet to prevent mechanical exacerbation of symptoms. The pain is currently mild and does not require further intervention at this time. Plan This note was constructed using voice recognition software. While every effort has been made to ensure accuracy and mortuary technician, still areas may have been included sometimes these areas may affect the content or meeting of the given symptoms. Total time spent caring for the patient today was 20 minutes. This includes time spent before the visit reviewing the chart, time spent during the visit, and time spent after the visit and documentation. Patient was informed and verbally consented to the use of an ambient scribe for clinic note documentation during this visit. Orders: Orders PT Evaluation and Treatment Today M25.511 - Pain in right shoulder Referrals 2 Orthopedics Referral M25.511 - Pain in right shoulder Medications: Refilled cyclobenzaprine 5 mg PO BEDTIME 20 tabs 0RF
[2024-10-12 11:41] VITALS: BP 126/62; PULSE 73; TEMP 36.6; O2SAT 98; BMI 31.0
--- OUTSIDE RECORDS SUMMARY | 2024-10-12 12:31 | XMS_ITS | Clinical Summary ---
Author Organization [address] [place] [address] [place] [id number] Phone Care Team Providers Care Roofer Name Role Phone Natalya Fuentes MD Primary Care Provider [phone] Allergies No known active allergies Medications No known medications Active Problems Problem Noted Date Diagnosed Date Left wrist pain 07/11/2024 Scapholunate ligament injury with no instability 08/19/2022 Surgical History Surgery Date Site/Laterality Comments WRIST [...] of 3 - 19+ 3-dose series) 2009 HIV Screening 02/12/2022 Hepatitis C Screening 02/12/2022 Social Influencers of Health Screening 02/12/2022 COVID-19 Vaccine (3 - 2023-2 5 season) 2023 08/21/2020, 07/31/2020 Depression Screening 03/16/2024 Influenza Vaccine (#1) 2024 , 01/14/2019, 04/20/2018 DTaP,Tdap,and Td Vaccines (4 - Td or Tdap) 02/08/2034 02/09/2024, 08/27/2012, 08/27/2012 HIB Vaccines Aged Out No longer eligi [...] 5 Years) and At-Risk Patients (6 to 49 Years) Aged Out No longer eligible b ased on patient's age to complete this topic RSV Immunization Patients Under 20 months Aged Out No longer eligible b ased on patient's age to complete this topic Varicella Vaccines Aged Out No longer eligible based on patient's age to complete this topic Insurance [place] - [place] Care Teams Roofer Relationship Specialty Start Date End Date Natalya Fuentes MD [address] [facility] , [address] [facility] Physician Associ D/B/A: [facility] BHASKAR Palacio PCP - General Internal Medicine 06/03/21
== END 2024-10-12 12:19 | disposition home or self-care (01) ==
LOC: HO.HMCH 11:31
PROVIDERS: PCP Internal Medicine
DX: M25.511 Pain in right shoulder (principal); M54.41 Lumbago with sciatica, right side

== ENCOUNTER → 2024-10-12 11:30 | Outpatient (BNVA) | payer OTHER, SELFPAY | PROVIDERS: PCP Internal Medicine | DX: M25.511 Pain in right shoulder (principal); M54.41 Lumbago with sciatica, right side; E78.5 Hyperlipidemia, unspecified; D64.9 Anemia, unspecified | CPT/HCPCS: 99212 ==

== ENCOUNTER 2024-11-23 09:31 | Outpatient (AMB) | payer OTHER, SELFPAY ==
--- NOTE | 2024-11-23 10:25 | AM.OFFWIN_ITS ---
Intake Vital Signs 11/23/24 10:26 Height 5 ft 6 in Weight 195 lb BMI 31.5 BP 120/88 Blood Pressure Location Lt brachial Position Sitting Pulse 67 Pulse Source Pulse Oximeter Temp 98.4 F Pulse Oximetry (%) 99 Oxygen Delivery Method Room Air Intake Visit Reasons: EP-rt side shoulder, rt knee, lower back pain Intake Note: pt presents with pain to RT neck radiating to RT shoulder pain and RT lower back/buttock pain radiating down to toes Patient Tobacco Use Status: Never used Tobacco Allergies Seasonal Allergies Allergy (Intermediate, Verified 11/23/24 10:29) sinus problems Do you need a note to return to daycare/school/sports/work: Yes HPI HPI Comments History of Present Illness Details History - The patient is a 34-year-old male pres enting with pain in the right shoulder, right lower back, and right leg. 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 - No loss of bladder or bowel control re ported. - The patient has not taken any medicati ons such as ibuprofen or Aleve for pain relief. Physical Exam General: Cooperative, healthy appearing, comfortable, no acute distress and well developed Orientation: Patient oriented x3 Limitations: No limitations Head: Normal to inspection Ears: Hearing grossly normal bilaterally Nose: Normal External nose present Face and sinus: Normal facial exam Mouth: normal, moist oral mucosa Eyes: Appearance normal, both eyes and all related structures Neck: Normal visual inspection and Yes full ROM, right trapezius firm/contracted Respiratory: Normal respiratory effort and able to speak in complete sentences. Skin: no rashes or lesions noted Neuro: Patient oriented x3 Extremities: moving all extremities normally, +straight leg on the right side, full ROM right shoulder Back/spine: no ttp cervical, thoracic and lumbar spine, ttp right low back into right buttocks [facility] Medical History Left wrist pain Normocytic anemia Obese Hand numbness Chest pain Left sided sciatica Hypovitaminosis D Dyslipidemia No known health problems Surgical History Hx laparoscopic cholecystectomy (04/01/24) Abdominal pain History of hand surgery Family History Father Hypertension Maternal Uncle Throat cancer Mother Diabetes Hypertension Rheumatoid arthritis Maternal Grandfather Diabetes Paternal Grandfather No problems noted. Maternal Uncle Colon cancer, Onset Age: 55 Social History Housing: Apartment Are you a primary director of healthcare systems to a significant other at home: No Do you presently have visiting nurse or other home services: No Alcohol intake: current Alcohol intake frequency: holidays/special occasions only Alcohol type: wine and hard liquor Patient Tobacco Use Status: Never used Tobacco Tobacco use type: Cigarette e-Cigarette/Vaping Use: Never Used Second Hand Smoke Exposure: No service: No Current occupational status: employed Current occupation: hotel maintenance, rt hand Current occupational exposures/hazards: No Cognitive needs: No Hearing needs: No Vision needs: No Review of Systems Const All systems reviewed & are unremarkable except as noted in HPI and below Physical Exam Vital Signs: Last Vital Signs Temp 98.4 F 11/23/24 10:26 Pulse 67 11/23/24 10:26 BP 120/88 11/23/24 10:26 Pulse Ox 99 11/23/24 10:26 Oxygen Delivery Method Room Air 11/23/24 10:26 BMI result Body Mass Index 31.5 Assessment & Plan Assessment & Plan (1) Right-sided low back pain with sciatica: Code(s): M54.41 - Lumbago with sciatica, right side Qualifiers: Chronicity: acute Sciatica laterality: sciatica of right side Qualified Code(s): M54.41 - Lumbago with sciatica, right side Plan: Patient was informed and verbally consented to the use of an ambient scribe for clinic note documentation during this visit - Prescribed prednisone for five days to reduce inflammation and alleviate sciatica symptoms. - Advised against taking NSAIDs concurrently with prednisone due to risk of gastrointestinal bleeding. - Recommended follow-up with orthopedics, as previously scheduled for right sided shoulder pain - Prescribed a muscle relaxant to be taken as needed for neck tightness and spasms. - Advised to monitor symptoms and adjust dosage based on effectiveness, with a maximum of two tablets per dose. (2) Right shoulder pain: Code(s): M25.511 - Pain in right shoulder Qualifiers: Chronicity: acute Qualified Code(s): M25.511 - Pain in right shoulder Plan: as above Medications: New prednisone 50 mg PO QAM 5 tabs 0RF cyclobenzaprine 5 mg PO Q8H PRN 20 tabs 0RF Muscle Spasm Coding Level of Care Code Est Pt Level 4 (26663) Diagnoses Acute right-sided low back pain with right-sided sciatica M54.41 Chronicity: acute Sciatica laterality: sciatica of right side Acute pain of right shoulder M25.511 Chronicity: acute
[2024-11-23 10:26] VITALS: BP 120/88; PULSE 67; TEMP 36.9; O2SAT 99; BMI 31.5
--- OUTSIDE RECORDS SUMMARY | 2024-11-23 11:20 | XMS_ITS | Clinical Summary ---
Author Organization [address] [place] [address] [place] [id number] Phone Care Team Providers Care Staffing Clerk Name Role Phone Natalya Fuentes MD Primary Care Provider [phone] Allergies No known active allergies Medications No [...] 02/12/2022 Social Influencers of Health Screening 02/12/2022 Depression Screening 03/16/2024 COVID-19 Vaccine (3 - 2024-2 6 season) 2024 08/21/2020, 07/31/2020 Influenza Vaccine (#1) 2024 , 01/14/2019, 04/20/2018 [...] topic Insurance [place] - [place] Care Teams Staffing Clerk Relationship Specialty Start Date End Date Natalya Fuentes MD [address] [facility] , [address] [facility] Physician Associ D/B/A: [facility] BHASKAR Palacio PCP - General Internal Medicine 06/03/21
== END 2024-11-23 11:02 | disposition home or self-care (01) ==
PROVIDERS: PCP Internal Medicine; Visit Provider Physician Assistant
DX: M54.41 Lumbago with sciatica, right side (principal); M25.511 Pain in right shoulder

== ENCOUNTER → 2024-11-23 09:31 | Outpatient (BNVA) | payer OTHER, SELFPAY | PROVIDERS: PCP Internal Medicine; Visit Provider Physician Assistant | DX: M25.511 Pain in right shoulder (principal); M79.604 Pain in right leg; M54.41 Lumbago with sciatica, right side | CPT/HCPCS: 99212 ==

== ENCOUNTER 2024-12-27 09:25 | Outpatient (AMB) | payer OTHER, SELFPAY ==
--- NOTE | 2024-12-27 09:27 | A.OFFVIS_ITS ---
Vital Signs 12/27/24 09:36 Height 5 ft 6 in Weight 195 lb BMI 31.5 Handedness Right Intake Visit Reasons: New prob- Right shoulder pain Intake Note: Bennie is a 34 year old right hand dominant female who presents today for a evaluation of his right shoulder pain. Patient was seen at the [facility] in [place] on 10/12/24 and 11/23/24. Patient notices that his pain is on the anterior, posterior aspect of the shoulder and it radiates up to his neck and shoots down to his elbow. He mentions he used to work at [employer] when a medal pole hit his shoulder that was 2012. Patient is doing physical therapy which is slightly improving his mobility and pain. 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 Patient has tried muscle relaxers and lidocane patches with mild relief. IMPRESSION: Normal right shoulder. Allergies Seasonal Allergies Allergy (Intermediate, Verified 12/27/24 09:34) sinus problems HPI HPI New prob- Right shoulder pain: Details: Mr. Marcus Ray is a 34-year-old male who presents to the office today for evaluation of right shoulder pain. He reports that the pain has been present on and off since 2012 when he was at work and got hit with a metal pole to the right shoulder. The patient reports that he works for [employer] and is doing a lot of repetitive motion for his work. He reports that with this repetitive motion this is cause a severe increase in his right shoulder pain. Pain radiates occasionally from the neck to the shoulder down towards the elbow. He also endorses numbness and tingling in the right hand including the thumb index and middle fingers. He has been attending physical therapy with minimal relief. [facility] Medical History Left wrist pain Normocytic anemia Obese Hand numbness Chest pain Left sided sciatica Hypovitaminosis D Dyslipidemia No known health problems Surgical History Hx laparoscopic cholecystectomy (04/01/24) Abdominal pain History of hand surgery Family History Father Hypertension Maternal Uncle Throat cancer Mother Diabetes Hypertension Rheumatoid arthritis Maternal Grandfather Diabetes Paternal Grandfather No problems noted. 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 Negative cross-body reach. 4-5 strength with empty can. Negative drop arm. NVI. Psych Appearance: grossly normal Mental Status: mental status grossly normal Attitude: cooperative Office Procedures AMB Joint Injection/Aspiration Joint Injection/Aspiration Primary Site: right shoulder Prep: site was prepped using aseptic technique, ethochloride spray was applied and injection warnings given Injected: 40 mg of, with 3 mL of, 1% plain lidocaine, 0.25% bupivacaine, in the subcromial space and decadron Approach Used: posterolateral Procedure: The patient tolerated the procedure well, but had some pain with the injection and there was some relief with the local anesthesia Coding 09574 - Large joint Procedure code (CPT) selection complete Assessment & Plan Assessment & Plan (1) Painful arc syndrome of right shoulder: Code(s): M75.101 - Unspecified rotator cuff tear or rupture of right shoulder, not specified as traumatic Category: Medical (2) Neck pain on right side: Code(s): M54.2 - Cervicalgia Category: Medical (3) Numbness of right hand: Code(s): R20.0 - Anesthesia of skin Category: Medical Plan Mr. Marcus Ray is a 34-year-old male who presents to the office today for evaluation of right shoulder pain. He reports that the pain has been present on and off since 2012 when he was at work and got hit with a metal pole to the right shoulder. The patient reports that he works for [employer] and is doing a lot of repetitive motion for his work. He reports that with this repetitive motion this is cause a severe increase in his right shoulder pain. Pain radiates occasionally from the neck to the shoulder down towards the elbow. He also endorses numbness and tingling in the right hand including the thumb index and middle fingers. He has been attending physical therapy with minimal relief. The patient was offered a cortisone injection in the right shoulder. The patient was explained the risks, benefits, and alternatives to receiving this injection. After receiving consent for the injection, the patient had the procedure done while in the office today. The patient tolerated the procedure well with no complications. Additionally, the patient was given an out-of-work note to rest for the next 2 weeks. I have also placed an order for an EMG study to evaluate the neurological integrity of the right upper extremity. He will follow up with me after the EMG is obtained in roughly 4 weeks, sooner if needed. X-rays of the right shoulder which were obtained on 07/28/24 were reviewed by me, Basia Mccoy PA-C, revealed no acute fracture or dislocation. Orders: Orders NE nerve conduction velocity Today M54.2 - Cervicalgia, R20.0 - Anesthesia of skin NE electromyogram (EMG) Today M54.2 - Cervicalgia, R20.0 - Anesthesia of skin Coding Level of Care Code New Pt Level 3 (98852) Diagnoses Painful arc syndrome of right shoulder M75.101 Neck pain on right side M54.2 Numbness of right hand R20.0 CPT Codes Coding - Large joint: 12709 - Large joint ([id number])
[2024-12-27 09:36] VITALS: BMI 31.5
--- OUTSIDE RECORDS SUMMARY | 2024-12-27 10:25 | XMS_ITS | Clinical Summary ---
Author Organization [address] [place] [address] [place] [id number] Phone Care Team Providers Care Inside Solar Sales Consultant Name Role Phone Natalya Fuentes MD Primary Care Provider Allergies No known active allergies Medications No [...] of 3 - 19+ 3-dose series) 2009 HPV Vaccines (1 - 3-dose SCD M series) 2017 HIV Screening 02/12/2022 Hepatitis C Screening 02/12/2022 Social Influencers of Health Screening 02/12/2022 Depression Screening 03/16/2024 COVID-19 Vaccine (3 - 2024-2 6 season) 2024 08/21/2020, 07/31/2020 Influenza Vaccine (#1) 2024 , 01/14/2019, 04/20/2018 DTaP,Tdap,and Td Vaccines (4 - Td or Tdap) 02/08/2034 02/09/2024, 08/27/2012, 08/27/2012 RSV Immunization Adult Patients (1 - 1-dose 75+ series) 2065 HIB Vaccines Aged Out No longer eligi [...] to complete this topic Insurance MEDICAID - [place] Care Teams Inside Solar Sales Consultant Relationship Specialty Start Date End Date Natalya Fuentes MD 2 [facility] , [address] [place] [address] Physician Associ D/B/A: [facility] [place] PCP - General Internal Medicine 06/03/21
== END 2024-12-27 10:04 | disposition home or self-care (01) ==
LOC: HO.HOS 09:26
PROVIDERS: PCP Internal Medicine; Visit Provider Physician Assistant
DX: M75.101 Unspecified rotator cuff tear or rupture of right shoulder, not specified as traumatic (principal); M54.2 Cervicalgia; R20.0 Anesthesia of skin
CPT/HCPCS: 20610; 99203

== ENCOUNTER → 2024-12-27 09:25 | Outpatient (BNVA) | payer OTHER, SELFPAY | PROVIDERS: PCP Internal Medicine; Visit Provider Physician Assistant | DX: M25.511 Pain in right shoulder (principal); M75.101 Unspecified rotator cuff tear or rupture of right shoulder, not specified as traumatic; M54.2 Cervicalgia; R20.0 Anesthesia of skin; R20.2 Paresthesia of skin | CPT/HCPCS: 20610; 99202; J0665; J1100; J2003 ==

== ENCOUNTER 2025-01-13 13:00 | Outpatient (RCR) | payer OTHER, SELFPAY ==
--- NOTE | 2024-12-13 14:37 | MHC.PT.EP ---
[facility] [place] Office [place] Office [place] [facility] [address] Yen Melvin [address] [phone] F: [phone] F: [phone] F: [phone] F: [phone] Physical Therapy Plan of Care Date of Evaluation: 12/13/24 Date of Surgery: n/a Diagnosis: R shoulder pain Assessment: Patient is a 34 year old male presenting to PT with complaints of pain in his R shoulder. Pt reports onset of pain began 3 months ago due to insidious onset. He presents today with impairments in pain, shoulder ROM, shoulder strength, posture. 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 Pt expresses long term care administrator goal of reducing pain, and is motivated to work towards this in PT. Clinical presentation today is most consistent with signs and sx associated with R shoulder pain and pt will benefit from skilled PT 2 week x 4 weeks to address the following problems and impairments noted upon evaluation: pain, shoulder ROM, shoulder strength, posture. These problems limit the patient with the following functional activities: work, reaching, lifting, ADLs. The prescribed treatment plan of care is medically necessary. Co-morbidities of none were identified and taken into considerations of plan of care. Pt was educated on HEP, role of PT, prognosis, POC. Frequency and Duration: The patient will be seen 2 x week x 4 weeks Short Term Goals: Pt will demonstrate improved R shoulder ROM to equal B in 2 weeks. Pt will demonstrate improved R shoulder MMT strength by 1/3 grade in 2 weeks. Pt will demonstrate improved posture as evidence by min to no cues during the session for correction in 2 weeks. Prison Goals: Pt will demonstrate improved SPADI score by 13 points in 4 weeks for improved functional mobility. Pt will demonstrate ability to reach and lift with min to no pain in 4 weeks for return to PLOF. Pt will demonstrate ability to work a full day with min to no pain in 4 weeks for return to PLOF. Treatment Plan: Modalities to reduce pain, spasms and effusion. Manual therapy to restore motion and function. Therapeutic exercise to improve strength and flexibility. Neuromuscular re-education for posture and balance. Therapeutic activities to return to functional activities of daily living. Electronically signed by: Tayla Luke, PT, DPT, ATC Please sign and return to therapist. Thank you for your referral.
--- NOTE | 2025-01-13 13:37 | MHC.PT.DC ---
[facility] [place] Office [place] [facility] [place] [facility] [address] Yen [place] [address] [phone] F: [phone] F: [phone] F: [phone] F: [phone] Physical Therapy Discharge Report Diagnosis: R shoulder pain Date of Surgery: n/a Date of Evaluation: 12/13/24 Date of Discharge: 01/13/25 Treatments to Date: 6 Cancellations to Date: 1 No Shows to Date: 2 Discharge Status: Recommend MD Follow-up Discharge Summary: 01/13/2025: Pt is not feeling relief since start of care and actually has regressed with some ROM measurements. He continues to feel his pain is limiting his function and affecting his tolerance to work. At this time due to lack of progress we will hold PT. Recommend he follow up with his doctor for further management of his pain. Pt in agreement with d/c today. Electronically signed by: Tayla Luke, PT, DPT, ATC Please sign and return to therapist. Thank you for your referral.
== END 2025-01-13 13:37 | disposition home or self-care (01) ==
LOC: HO.PTCHIC 13:00
PROVIDERS: PCP Internal Medicine
DX: M25.511 Pain in right shoulder (principal)
CPT/HCPCS: 97110; 97161

== ENCOUNTER 2025-01-16 10:49 | Outpatient (REF) | payer OTHER, SELFPAY ==
[2025-01-16 12:09] LABS: MANUAL DIFF FLAG NO
[2025-01-16 12:31] LABS: Hematocrit 43.3 % (42.0-52.0); Hemoglobin 14.2 g/dl (14.0-18.0); Imm Gran Abs Auto 0.01 X10*3/uL (0.00-0.03); Imm Gran Pct Auto 0.2 % (0.0-0.4); Lymphocytes Absolute Auto 1.8 X10*3/uL (1.2-4.9); Mean Corpuscular HGB Conc 32.8 g/dl (31.0-36.0); Mean Corpuscular Hemoglobin 29.1 pg (27.0-33.0); Mean Corpuscular Volume 88.7 fL (80.0-98.0); NRBC Abs Auto 0.000 X10*3/uL (0.0-0.012); NRBC Pct Auto 0.0 /100WBC (0.0-0.2); Platelet Count 205 X10*3/uL (160-400); Red Blood Count 4.88 X10*6/uL (4.60-5.80); White Blood Count 4.8 X10*3/uL (4.8-10.8)
[2025-01-16 13:03] LABS: Alanine Aminotransferase 40 U/L (0-40); Albumin Level 4.6 g/dL (3.5-5.0); Alkaline Phosphatase 84 U/L (39-117); Anion Gap 10 (12-20); Aspartate Amino Transferase 31 U/L (5-37); Blood Urea Nitrogen 16 mg/dL (9-16); Calcium 9.5 mg/dL (8.4-10.2); Carbon Dioxide 31 mmol/L (22-29); Chloride 105 mmol/L (96-108); Cholesterol 219 mg/dL (<200); Estimated Glomerular Filt Rate > 60; HDL Cholesterol 56 mg/dL (>40); Potassium 4.5 mmol/L (3.3-5.1); Sodium 141 mmol/L (135-145); Total Protein 7.5 g/dL (6.5-8.0); Triglycerides 55 mg/dL (<150)
[2025-01-16 13:30] LABS: Folate 10.3 ng/mL (> or = 4.0); Vitamin B12 398 pg/mL (200-900)
== END 2025-01-16 10:50 | disposition home or self-care (01) ==
LOC: HO.LAB 10:49
PROVIDERS: PCP Internal Medicine
DX: Z00.00 Encounter for general adult medical examination without abnormal findings (principal); K76.0 Fatty (change of) liver, not elsewhere classified; E78.5 Hyperlipidemia, unspecified; D64.9 Anemia, unspecified; R10.11 Right upper quadrant pain; M54.41 Lumbago with sciatica, right side; M25.511 Pain in right shoulder; R20.0 Anesthesia of skin; L30.9 Dermatitis, unspecified; Z13.29 Encounter for screening for other suspected endocrine disorder; Z13.21 Encounter for screening for nutritional disorder; Z13.220 Encounter for screening for lipoid disorders; Z13.0 Encounter for screening for diseases of the blood and blood-forming organs and certain disorders involving the immune mechanism
CPT/HCPCS: 36415; 80053; 80061; 82306; 82607; 82746; 84443; 85025; 99212

== ENCOUNTER 2025-01-16 10:49 | Outpatient (AMB) | payer OTHER, SELFPAY ==
--- NOTE | 2025-01-16 11:04 | MHC.PC.OV ---
Vital Signs 01/16/25 11:05 Height 5 ft 6 in Weight 198 lb BMI 32.0 BP 119/76 Blood Pressure Location Lt brachial Position Sitting Pulse 56 Pulse Source Pulse Oximeter Temp 97.3 F Temp Source Temporal Artery Scan Pulse Oximetry (%) 99 Oxygen Delivery Method Room Air Intake Visit Reasons: f/u shoulder pain Lead Caster Helper Required: No Accompanied by: Self / Same As Patient Allergies Seasonal Allergies Allergy (Intermediate, Verified 01/16/25 11:05) sinus problems Medication List - Last Reconciled 01/16/25 by Irina Chaney PA-C cyclobenzaprine 5 mg PO Q8H PRN lidocaine 5% 1 patch topical DAILY multivitamin 1 tab PO DAILY prednisone 50 mg PO QAM Tobacco use date assessed: 01/16/25 Dental Screening Dental Screen Date: 01/16/25 Did you have a dental visit in the last 12 months?: No Did you have a dental problem in the last 6 months where you did not have access to dental care?: No Was dental information given to patient?: No HPI f/u shoulder pain HPI Details 34-year-old male with past medical history of dyslipidemia and anemia last seen 09/2024 coming in for follow up on acute problem. In review of the notes, patient was seen in walk-in clinic 11/23/2024 for right shoulder pain given prednisone and cyclobenzaprine. He is also seen by Orthopedics 12/2024 given a cortisone injection of the shoulder and ordered for EMG. Patient tells us today he underwent physical therapy with the shoulder and saw Orthopedics as well for the cortisone injection. He has not seen any improvement in his shoulder pain and pain has not worsened. And continues with low back pain and right-sided sciatica which has been chronic for him. He also continues with right hand numbness and tingling in his scheduled to undergo EMG in February. He also reports right upper quadrant abdominal pain is intermittent and occurs after caffeine intake without any other triggers identified. Of note he has undergone a cholecystectomy in the past [facility] Medical History Left wrist pain Normocytic anemia Obese Hand numbness Chest pain Left sided sciatica Hypovitaminosis D Dyslipidemia No known health problems Surgical History Hx laparoscopic cholecystectomy (04/01/24) Abdominal pain History of hand surgery Family History Father Hypertension Maternal Uncle Throat cancer Mother Diabetes Hypertension Rheumatoid arthritis Maternal Grandfather Diabetes Paternal Grandfather No problems noted. 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 1. Little interest or pleasure in doing things: not at all 2. Feeling down, depressed, or hopeless: not at all 3. Trouble falling or staying asleep, or sleeping too much: not at all 4. Feeling tired or having little energy: several days 5. Poor appetite or overeating: not at all 6. Feeling bad about yourself - or that you are a failure or have let yourself or your family down: not at all 7. Trouble concentrating on things, such as reading the newspaper or watching television: not at all 8. Moving or speaking so slowly that other people could have noticed. Or the opposite - being so fidgety or restless that you have been moving around a lot more than usual: not at all 9. Thoughts that you would be better off or of hurting yourself in some way: not at all Total score: 1 Source: Developed by Drs. Oscar Krishnan, Melany Canchola, Howard Elizalde and colleagues, with an educational aj from [employer]. Thrive Questionnaire Date Thrive assessed: 01/16/25 I am a: Patient What is your living situation today?: I have a steady place to live Within the past 12 months, did the food you bought not last and you didn't have the money to get more?: Sometimes True Within the past 12 months, did you worry whether your food would run out before you got money to buy more?: Sometimes True Do you have trouble paying for medicines?: No Do you have trouble getting transportation to medical appointments?: No Do you have trouble paying your heating and electricity bill?: Yes Do you have trouble taking care of your child, family member or friend?: No Do you have trouble with day-to-day activities such as bathing, preparing meals, shopping, managing finances, etc.?: No Are you currently unemployed and looking for a job?: No Are you interested in more education?: No Currently or been in a relationship where the following occur: No concerns reported THRIVE Score: 3 AUDIT C Alcohol Use Questionnaire (AUDIT-C) 1. How often do you have a drink containing alcohol?: Never Total Score: 0 SHAKILA-7 AMB Questionnaire SHAKILA-7 Date SHAKILA - 7 assessed: 07/04/24 Feeling nervous, anxious, or on edge: 1 = Several days Not being able to stop or control worryin = Not at all Worrying too much about different things: 0 = Not at all Trouble relaxin = Not at all Being so restless that it is hard to sit still: 0 = Not at all Becoming easily annoyed or irritable: 0 = Not at all Feeling afraid as if something awful might happen: 0 = Not at all Total SHAKILA-7 score (0-4 normal; 5-9 mild; 10-14 moderate; 15-21 severe): 1 Source: Developed by Drs. Oscar Krishnan, Melany Canchola, Hwoard Elizalde and colleagues, with an educational aj from [employer]. Review of Systems Const Denies body aches, Denies chills and Denies fever(s) Eyes Reports no additional complaints ENT Reports no additional complaints Card Denies chest pain, Denies syncope, Denies lightheadedness and Denies dyspnea Resp Denies dyspnea GI Reports as per HPI, Denies bloating, Denies constipation, Reports heartburn, Denies diarrhea, Denies nausea and Denies vomiting Reports no additional complaints Musc Reports as per HPI Neuro Denies syncope Physical exam (Primary Care) Vital Signs: Last Vital Signs Temp 97.3 F 01/16/25 11:05 Pulse 56 01/16/25 11:05 BP 119/76 01/16/25 11:05 Pulse Ox 99 01/16/25 11:05 Oxygen Delivery Method Room Air 01/16/25 11:05 BMI result Body Mass Index 32.0 Tobacco/Smoking Status: Tobacco use Status Tobacco use date assessed 01/16/25 01/16/25 11:06 Patient Tobacco Use Status Never used Tobacco 01/16/25 11:06 Tobacco use type Cigarette 01/16/25 11:06 e-Cigarette/Vaping Use Never Used 01/16/25 11:06 PHQ-9: PHQ-9 Score PHQ-9: Total score 1 01/16/25 11:55 Thrive Assessment: Date of Thrive Assessment Date Thrive assessed 01/16/25 01/16/25 11:06 Currently or been in a relationship where the following occur: No concerns reported Const General: cooperative, healthy appearing, comfortable and no acute distress Orientation/consciousness: patient oriented x3 HENMT Head: Yes normocephalic Ears: hearing grossly normal bilaterally General nose exam: Normal external nose present Eyes General: appearance normal, both eyes and all related structures Conjunctivae: conjunctivae normal Neck Neck: Yes full ROM and Yes no lymphadenopathy Resp Effort & Inspection: normal respiratory effort Auscultation: clear to auscultation bilaterally, no crackles, no rales, no rhonchi and no wheezes Cardio Rate: regular rate Rhythm: regular rhythm GI Palpation (GI): Soft to palpation, not firm, nontender, no guarding, not rigid and No Rebound tenderness present Skin General skin exam: no rashes or lesions noted Neuro General: patient oriented x3 Gait exam (Neuro): Normal gait present Extrem General: Yes normal to inspection, Yes full ROM and No edema Psych Affect: normal affect Attitude: cooperative Insight: Good insight present (Psych) Judgement: Good judgement present (Psych) Coding Level of Care Code Est Pt Level 3 (97139) Diagnoses Acute right-sided low back pain with right-sided sciatica M54.41 Chronicity: acute Sciatica laterality: sciatica of right side Acute pain of right shoulder M25.511 Chronicity: acute Numbness of right hand R20.0 Right upper quadrant abdominal pain R10.11 Eczema L30.9 Screening for hypercholesterolemia Z13.220 Assessment & Plan Assessment & Plan (1) Right-sided low back pain with sciatica: Code(s): M54.41 - Lumbago with sciatica, right side Category: Medical Qualifiers: Chronicity: acute Sciatica laterality: sciatica of right side Qualified Code(s): M54.41 - Lumbago with sciatica, right side Plan: With a right-sided low back pain with sciatica patient is declining physical therapy today and would like to see him back specialists. Referral was placed to [facility]. He may use naproxen, cyclobenzaprine and lidocaine patches as needed for pain (2) Right shoulder pain: Code(s): M25.511 - Pain in right shoulder Category: Medical Qualifiers: Chronicity: acute Qualified Code(s): M25.511 - Pain in right shoulder Plan: For right shoulder pain he will continue to follow with Orthopedics and has a appointment next week with them. (3) Numbness of right hand: Code(s): R20.0 - Anesthesia of skin Category: Medical Plan: EMG was ordered by his supervisory investigative specialist scheduled for February. (4) Right upper quadrant abdominal pain: Code(s): R10.11 - Right upper quadrant pain Category: Medical Plan: Patient reporting right upper quadrant pain that has occasionally in the epigastric area and tends to occur after caffeine and has not been able to identify any other triggers. Plan to trial omeprazole as this may be related to GERD given the triggers and location of the pain. Plan to obtain abdominal ultrasound at patient request (5) Eczema: Code(s): L30.9 - Dermatitis, unspecified Category: Medical Plan: Patient having eczema bilateral hands triamcinolone cream was sent to pharmacy (6) Screening for hypercholesterolemia: Code(s): Z13.220 - Encounter for screening for lipoid disorders Category: Medical Plan: Blood work ordered Plan This note was constructed using voice recognition software. While every effort has been made to ensure accuracy and home health care worker, still areas may have been included sometimes these areas may affect the content or meeting of the given symptoms. Total time spent caring for the patient today was 20 minutes. This includes time spent before the visit reviewing the chart, time spent during the visit, and time spent after the visit and documentation. Orders: Orders US abdomen complete Today R10.11 - Right upper quadrant pain Comprehensive Met. Panel Today K76.0 - Fatty (change of) liver, not elsewhere classified, Z00.00 - Encounter for general adult medical examination without abnormal findings Complete Blood Count Auto Diff Today K76.0 - Fatty (change of) liver, not elsewhere classified, Z13.0 - Encounter for screening for diseases of the blood and blood-forming organs and certain disorders involving the immune mechanism TSH reflex Free T4 Today Z13.29 - Encounter for screening for other suspected endocrine disorder Vitamin D 25-OH Total Today Z13.21 - Encounter for screening for nutritional disorder Lipid Panel Today Z13.220 - Encounter for screening for lipoid disorders Vitamin B12 and Folate Today Z13.21 - Encounter for screening for nutritional disorder Referrals Orthopedics Referral M54.41 - Lumbago with sciatica, right side Medications: New naproxen 500 mg PO BID 30 tabs 0RF triamcinolone acetonide 0.1% 1 appl topical DAILY 30 grams 0RF omeprazole 20 mg PO DAILY 90 caps 0RF Refilled cyclobenzaprine 5 mg PO Q8H PRN 20 tabs 0RF Muscle Spasm lidocaine 5% leave on most painful area for up to 12 hrs 1 patch topical DAILY 30 ea 0RF Discontinued prednisone Discontinued Reason: Patient no longer taking 50 mg PO QAM 5 tabs 0RF
[2025-01-16 11:05] VITALS: BP 119/76; PULSE 56; TEMP 36.3; O2SAT 99; BMI 32.0
== END 2025-01-16 11:39 | disposition home or self-care (01) ==
LOC: HO.HMCH 10:50
PROVIDERS: PCP Internal Medicine
DX: M54.41 Lumbago with sciatica, right side (principal); M25.511 Pain in right shoulder; R20.0 Anesthesia of skin; R10.11 Right upper quadrant pain; L30.9 Dermatitis, unspecified; Z13.220 Encounter for screening for lipoid disorders

== ENCOUNTER 2025-01-24 09:47 | Outpatient (AMB) | payer OTHER, SELFPAY ==
--- NOTE | 2025-01-24 09:54 | A.OFFVIS_ITS ---
Intake Visit Reasons: OV- Right shoulder pain Intake Note: Bennie is a 34 year old male who presents today for a follow of his right shoulder pain, last injection 12/27/24. Patient reports his pain has gotten better, however his pain is still lingering. He notices that his pain is limiting his range of motion. Allergies Seasonal Allergies Allergy (Intermediate, Verified 01/24/25 10:02) sinus problems HPI HPI OV- Right shoulder pain: Details: Mr. Marcus Ray is a 34-year-old right-hand dominant male who presents to the office today for follow up of right shoulder pain. He reports that his last appointment he received a cortisone injection which did help some. He continues to have pain that radiates from the neck to the shoulder down the entire right upper extremity and endorses numbness and tingling occasionally in the hand. [facility] Medical History Left wrist pain Normocytic anemia Obese Hand numbness Chest pain Left sided sciatica Hypovitaminosis D Dyslipidemia No known health problems Surgical History Hx laparoscopic cholecystectomy (04/01/24) Abdominal pain History of hand surgery Family History Father Hypertension Maternal Uncle Throat cancer Mother Diabetes Hypertension Rheumatoid arthritis Maternal Grandfather Diabetes Paternal Grandfather No problems noted. 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 Negative cross-body reach. 4-5 strength with empty can. Negative drop arm. NVI. Psych Appearance: grossly normal Mental Status: mental status grossly normal Attitude: cooperative Assessment & Plan Assessment & Plan (1) Painful arc syndrome of right shoulder: Code(s): M75.101 - Unspecified rotator cuff tear or rupture of right shoulder, not specified as traumatic Category: Medical (2) Neck pain on right side: Code(s): M54.2 - Cervicalgia Category: Medical Plan Mr. Marcus Ray is a 34-year-old right-hand dominant male who presents to the office today for follow up of right shoulder pain. He reports that his last appointment he received a cortisone injection which did help some. He continues to have pain that radiates from the neck to the shoulder down the entire right upper extremity and endorses numbness and tingling occasionally in the hand. While in the office today, the patient has not had the EMG study as of yet. I would like to see the patient after the EMG study is obtained. Additionally, I placed an order for physical therapy while in the office today to work on his C- spine. I have provided the patient with an out-of-work note for 1 week to allow the upper extremity to rest. Follow up after EMG is obtained, sooner if needed. Coding Level of Care Code Est Pt Level 3 (45170) Diagnoses Painful arc syndrome of right shoulder M75.101 Neck pain on right side M54.2
--- OUTSIDE RECORDS SUMMARY | 2025-01-24 11:03 | XMS_ITS | Clinical Summary ---
Author Organization [address] [place] [address] Address [address] [place] [address] Phone Care Team Providers Care Waiter/Waitress Take Out Name Role Phone Natalya Fuentes MD Primary Care Provider [phone] Allergies No known active allergies Medications No [...] to complete this topic Insurance MEDICAID - [place] [facility] PL[facility] Care Teams Waiter/Waitress Take Out Relationship Specialty Start Date End Date Natalya Fuentes MD [address] [place] [address] , [address] [facility] Physician Associ D/B/A: [facility] BHASKAR Palacio PCP - General Internal Medicine 06/03/21
== END 2025-01-24 10:30 | disposition home or self-care (01) ==
LOC: HO.HOS 09:48
PROVIDERS: PCP Internal Medicine; Visit Provider Physician Assistant
DX: M75.41 Impingement syndrome of right shoulder (principal); M54.2 Cervicalgia
CPT/HCPCS: 99213

== ENCOUNTER → 2025-01-24 09:47 | Outpatient (BNVA) | payer OTHER, SELFPAY | PROVIDERS: PCP Internal Medicine; Visit Provider Physician Assistant | DX: M75.101 Unspecified rotator cuff tear or rupture of right shoulder, not specified as traumatic (principal); M54.2 Cervicalgia | CPT/HCPCS: 99212 ==

== ENCOUNTER 2025-02-15 08:20 | Outpatient (AMB) | payer OTHER, SELFPAY ==
--- OUTSIDE RECORDS SUMMARY | 2025-02-15 08:28 | XMS_ITS | Clinical Summary ---
Author Organization [address] [place] [address] [place] [id number] Phone Care Team Providers Care Sausage Inspector Name Role Phone Natalya Fuentes MD Primary Care Provider [phone] Allergies No known active allergies Medications No [...] (1 - 3-dose SCD M series) 2017 Cholesterol Screening (Lipid Panel) 02/12/2022 HIV Screening 02/12/2022 Hepatitis C Screening [...] complete this topic Insurance MEDICAID - [place] [facility] PL[facility] Care Teams Sausage Inspector Relationship Specialty Start Date End Date Natalya Fuentes MD [address] [facility] , [address] [facility] Physician Associ D/B/A: [facility] BHASKAR Palacio PCP - General Internal Medicine 06/03/21
[2025-02-15 08:47] VITALS: BP 112/76; PULSE 73; TEMP 36.2; O2SAT 99; BMI 31.8
--- NOTE | 2025-02-15 08:47 | MHC.PC.OV ---
Vital Signs 02/15/25 08:47 Height 5 ft 6 in Weight 196 lb 13.965 oz BMI 31.8 BP 112/76 Blood Pressure Location Lt brachial Position Sitting Pulse 73 Pulse Source Pulse Oximeter Temp 97.1 F Temp Source Temporal Artery Scan Pulse Oximetry (%) 99 Oxygen Delivery Method Room Air Intake Visit Reasons: Annual exam Program Manager Required: No Accompanied by: Self / Same As Patient Allergies Seasonal Allergies Allergy (Intermediate, Verified 02/15/25 09:04) sinus problems Medication List - Last Reconciled 02/15/25 by Natalya Fuentes MD cyclobenzaprine 5 mg PO Q8H PRN lidocaine 5% 1 patch topical DAILY multivitamin 1 tab PO DAILY naproxen 500 mg PO BID omeprazole 20 mg PO DAILY triamcinolone acetonide 0.1% 1 appl topical DAILY Tobacco use date assessed: 02/15/25 Dental Screening Dental Screen Date: 02/15/25 Did you have a dental visit in the last 12 months?: Yes HPI HPI Comments History of Present Illness Details The patient is a 35 year old individual presenting for an annual physical examination. The patient has received the influenza vaccine today in the office. Recent laboratory results showed elevated cholesterol, though medication is not currently indicated, and the patient's blood pressure is excellent. The patient's current medications include cyclobenzaprine, a multivitamin, omeprazole for acid reflux, a cream for eczema, and naproxen as needed. The patient reports seasonal allergies but has no known drug allergies. Past surgical history includes a cholecystectomy and a hand surgery on the wrist. The patient's father has a history of hypertension, and the patient's mother has a history of diabetes, hypertension, and rheumatoid arthritis. The patient is a former smoker, drinks alcohol on special occasions, and denies depression. Review of recent labs indicated normal hemoglobin, white blood cell count, and vitamin D levels. The patient has a history of steatotic liver disease, but liver enzymes were normal last month. Recently, the patient has been experiencing new onset sciatica and occasional morning headaches. He also complains of right knee pain and left ankle pain. Would had x-rays and referred to pain management and also physical therapy. [facility] Medical History (Updated 02/15/25 @ 09:16 by Natalya Fuentes MD) Left wrist pain Normocytic anemia Obese Hand numbness Chest pain Left sided sciatica Hypovitaminosis D Dyslipidemia No known health problems Surgical History Hx laparoscopic cholecystectomy (04/01/24) Abdominal pain History of hand surgery Family History Father Hypertension Maternal Uncle Throat cancer Mother Diabetes Hypertension Rheumatoid arthritis Maternal Grandfather Diabetes Paternal Grandfather No problems noted. Maternal Uncle Colon cancer, Onset Age: 55 Social History Housing: Apartment Are you a primary daycare teacher to a significant other at home: No Do you presently have visiting nurse or other home services: No Alcohol intake: current Alcohol intake frequency: holidays/special occasions only Alcohol type: wine and hard liquor Patient Tobacco Use Status: Former Tobacco user Tobacco use type: Cigarette e-Cigarette/Vaping Use: Never Used Second Hand Smoke Exposure: No service: No Current occupational status: employed Current occupation: [employer] , right hand dominant Current occupational exposures/hazards: No Cognitive needs: No Hearing needs: No Vision needs: No Questionnaire PHQ-9 Over the last 2 weeks, how often have you been bothered by any of the following problems? 1. Little interest or pleasure in doing things: not at all 2. Feeling down, depressed, or hopeless: not at all 3. Trouble falling or staying asleep, or sleeping too much: not at all 4. Feeling tired or having little energy: several days 5. Poor appetite or overeating: not at all 6. Feeling bad about yourself - or that you are a failure or have let yourself or your family down: not at all 7. Trouble concentrating on things, such as reading the newspaper or watching television: not at all 8. Moving or speaking so slowly that other people could have noticed. Or the opposite - being so fidgety or restless that you have been moving around a lot more than usual: not at all 9. Thoughts that you would be better off or of hurting yourself in some way: not at all Total score: 1 Depression Screening Interpretation: Negative Depression Screening Done: Yes 20727 - PHQ-9 Billing: Yes Source: Developed by Dinesh Nobleset B.W. Sushant, Howard Elizalde and colleagues, with an educational aj from [employer]. Thrive Questionnaire Date Thrive assessed: 02/15/25 I am a: Patient What is your living situation today?: I have a steady place to live Within the past 12 months, did the food you bought not last and you didn't have the money to get more?: Sometimes True Within the past 12 months, did you worry whether your food would run out before you got money to buy more?: Sometimes True Do you have trouble paying for medicines?: No Do you have trouble getting transportation to medical appointments?: No Do you have trouble paying your heating and electricity bill?: Yes Do you have trouble taking care of your child, family member or friend?: No Do you have trouble with day-to-day activities such as bathing, preparing meals, shopping, managing finances, etc.?: No Are you currently unemployed and looking for a job?: No Are you interested in more education?: No Currently or been in a relationship where the following occur: No concerns reported THRIVE Score: 3 AUDIT C Alcohol Use Questionnaire (AUDIT-C) 1. How often do you have a drink containing alcohol?: Monthly or less 2. How many drinks containing alcohol do you have on a typical day when you are drinking?: 1 or 2 Total Score: 1 Score Reviewed/Action Taken: No SHAKILA-7 AMB Questionnaire SHAKILA-7 Date SHAKILA - 7 assessed: 02/15/25 Feeling nervous, anxious, or on edge: 1 = Several days Not being able to stop or control worryin = Not at all Worrying too much about different things: 0 = Not at all Trouble relaxin = Not at all Being so restless that it is hard to sit still: 0 = Not at all Becoming easily annoyed or irritable: 0 = Not at all Feeling afraid as if something awful might happen: 0 = Not at all Total SHAKILA-7 score (0-4 normal; 5-9 mild; 10-14 moderate; 15-21 severe): 1 Source: Developed by Drs. Oscar Krishnan, Melany Canchola, Howard Elizalde and colleagues, with an educational aj from [employer]. Review of Systems Const All systems reviewed & are unremarkable except as noted in HPI and below Card Denies chest pain at rest, Denies chest pain with activity, Denies edema, Denies irregular heart rhythm, Denies claudication, Denies dyspnea, Denies dyspnea on exertion, Denies orthopnea, Denies paroxysmal nocturnal dyspnea and Denies slow heart rate Resp Denies cough, Denies dyspnea and Denies dyspnea on exertion Physical exam (Primary Care) Vital Signs: Last Vital Signs Temp 97.1 F 02/15/25 08:47 Pulse 73 02/15/25 08:47 BP 112/76 02/15/25 08:47 Pulse Ox 99 02/15/25 08:47 Oxygen Delivery Method Room Air 02/15/25 08:47 BMI result Body Mass Index 31.8 Tobacco/Smoking Status: Tobacco use Status Tobacco use date assessed 02/15/25 02/15/25 08:53 Patient Tobacco Use Status Former Tobacco user 02/15/25 08:53 Tobacco use type Cigarette 02/15/25 08:47 e-Cigarette/Vaping Use Never Used 02/15/25 08:47 PHQ-9: PHQ-9 Score PHQ-9: Total score 1 02/15/25 08:57 Depression Screening Interpretation: Negative Thrive Assessment: Date of Thrive Assessment Date Thrive assessed 02/15/25 02/15/25 08:53 Currently or been in a relationship where the following occur: No concerns reported [facility] Head: Yes normal to inspection, Yes normocephalic and Yes atraumatic Ears: external ears normal Eyes General: appearance normal, both eyes and all related structures Eyelids: Yes eyelids normal Conjunctivae: conjunctivae normal Neck Neck: Yes normal visual inspection and Yes supple Resp Effort & Inspection: normal respiratory effort Auscultation: clear to auscultation bilaterally Cardio Jugular venous distension: no JVD Rate: regular rate Rhythm: regular rhythm Heart sounds: S1 normal heart sound present and S2 normal heart sound present GI Inspection: Yes normal to inspection Palpation (GI): Soft to palpation and nontender Auscultation: normal bowel sounds Skin General skin exam: no rashes or lesions noted Neuro General: no focal motor deficits Extrem General: Yes full ROM Psych Appearance: grossly normal Office Procedures Flu Questionnaire Does the patient have a severe egg allergy?: No Does the patient have severe life threatening allergies?: No Does the patient have a fever or illness today?: No Has the patient ever had Guillain-Talco Syndrome?: No Has the patient ever had any past reaction to a flu shot?: No Immunizations Fluarix [id number] (PF) 45 mcg (15 mcg x 3)/0.5 mL IM syringe Performing Provider: Natalya Fuentes MD [facility] Administered by: Eli Ferreira CMA on 02/15/25 08:58 Dose Route Admin Location Dispensed Lot Number Expiration Date NDC Card Reader 0.5 mL IM Right Deltoid 0.5 mL [id number] 09/12/25 [id number] [employer] VIS Given Date VIS Provided VIS Publication Date 02/15/25 Single Vaccine 24 Eligibility Eligibility Date Funding Source Not [facility] Eligible 02/15/25 Private Coding Level of Care Code Est Pt Level 3 (07236) Est Pt Prev Care 18-39y(59430) Diagnoses Physical exam Z00.00 Acute right-sided low back pain with right-sided sciatica M54.41 Chronicity: acute Sciatica laterality: sciatica of right side Right knee pain M25.561 Left ankle pain M25.572 Additional Codes PHQ-9 - 72988 - PHQ-9 Billing: Yes ([id number]) Time Spent (min) 32 Assessment & Plan Assessment & Plan (1) Physical exam: Code(s): Z00.00 - Encounter for general adult medical examination without abnormal findings Category: Medical (2) Right-sided low back pain with sciatica: Code(s): M54.41 - Lumbago with sciatica, right side Category: Medical Qualifiers: Chronicity: acute Sciatica laterality: sciatica of right side Qualified Code(s): M54.41 - Lumbago with sciatica, right side (3) Right knee pain: Code(s): M25.561 - Pain in right knee Category: Medical (4) Left ankle pain: Code(s): M25.572 - Pain in left ankle and joints of left foot Category: Medical Plan Plan 1. Physical exam The patient presented for an annual physical exam. Recent lab results were reviewed, including elevated cholesterol, normal hemoglobin, and normal white blood cell count. The patient's blood pressure is excellent, and the patient has already received the flu vaccine. 2. Sciatica, Right Knee Pain, And Left Ankle Pain The patient reports new onset of sciatica. For evaluation, X-rays of the lumbar spine, right knee, and left ankle will be ordered. A referral to physical therapy for the back and knee, as well as a follow-up with orthopedics, has been arranged. A referral to pain management may also be considered. Orders: Orders Influenza [id number] Immunization Today Z23 - Encounter for immunization XR ankle LT 2V Today M25.572 - Pain in left ankle and joints of left foot XR knee RT 2V Today M25.561 - Pain in right knee XR lumbar spine 2-3V Today M54.41 - Lumbago with sciatica, right side PT Evaluation and Treatment Today M54.41 - Lumbago with sciatica, right side PT Evaluation and Treatment Today M25.561 - Pain in right knee OT Evaluation and Treatment Today M25.572 - Pain in left ankle and joints of left foot Referrals Pain Management Referral M54.41 - Lumbago with sciatica, right side
== END 2025-02-15 09:17 | disposition home or self-care (01) ==
LOC: HO.HMCH 08:20
PROVIDERS: PCP Internal Medicine; Visit Provider Internal Medicine
DX: Z00.00 Encounter for general adult medical examination without abnormal findings (principal); M54.41 Lumbago with sciatica, right side; M25.561 Pain in right knee; M25.572 Pain in left ankle and joints of left foot; Z23 Encounter for immunization

== ENCOUNTER → 2025-02-15 08:20 | Outpatient (BNVA) | payer OTHER, SELFPAY | PROVIDERS: PCP Internal Medicine; Visit Provider Internal Medicine | DX: Z00.00 Encounter for general adult medical examination without abnormal findings (principal); K21.9 Gastro-esophageal reflux disease without esophagitis; M54.41 Lumbago with sciatica, right side; M25.561 Pain in right knee; M25.572 Pain in left ankle and joints of left foot; Z23 Encounter for immunization | CPT/HCPCS: 90471; 90656; 96127; 99212; 99395 ==